=== PATIENT | female | born 1935 | race Caucasian/White ===

== ENCOUNTER 2016-06-28 10:38 | Emergency (ER) | payer MEDICARE, BC ==
[2016-06-28 10:43] VITALS: RESP 18
[2016-06-28] MEDS ORDERED: MECLIZINE 25 MG TAB PO STA (11:07)
[2016-06-28] MEDS ORDERED: DIAZEPAM 5 MG/ML 2 ML SYRINGE IVP STA (11:07)
[2016-06-28] MEDS ORDERED: hydrALAZINE HCL 20 MG/ML 1 ML VIAL IVP STA (11:08)
--- NOTE | 2016-06-28 11:11 | ED ---
General Adult HPI - General Chief complaint: Dizziness Stated complaint: HTN Time Seen by Provider: 06/28/16 10:45 Source: patient, family, RN notes reviewed Mode of arrival: wheelchair Limitations: no limitations - History of Present Illness Initial comments: This is an 81-year-old female presents emergency Department with a past medical history significant for hypertension. Patient comes in today stating that she is dizzy and she feels like she is given a fall over anytime she stands up to go to walk. Patient states this all started this morning. Patient states she has not had a history of similar. Patient denies headache patient denies any numbness weakness. Patient denies any chest pain palpitations difficulty breathing shortest breath. Patient denies any tinnitus. Patient denies any decrease in hearing recently. Patient denies any recent fever chills. Patient denies any recent cough. Patient denies abdominal pain patient denies any nausea vomiting or diarrhea. Patient states movement does seem to make it worse and sitting still in bed she does feel better. - Related Data Home Medications Medication Instructions Recorded Confirmed Calcium Carbonate [Calcium] 600 mg PO DAILY 06/28/16 06/28/16 Garlic 1 tab PO DAILY 06/28/16 06/28/16 Lisinopril/Hydrochlorothiazide 1 tab PO BID-W/MEALS 06/28/16 06/28/16 [Lisinopril-Hctz 20-12.5 mg Tab] Multivitamins, Thera [Multivitamin 1 tab PO DAILY 06/28/16 06/28/16 (formulary)] Red Yeast Rice 1,200 mg PO DAILY 06/28/16 06/28/16 hydrALAZINE HCL [Apresoline] 25 mg PO BID-W/MEALS 06/28/16 06/28/16 Previous Rx's Medication Instructions Recorded Meclizine [Antivert] 25 mg PO TID #20 tab 06/28/16 Allergies Allergy/AdvReac Type Severity Reaction Status Date / Time No Known Allergies Allergy Verified 06/28/16 11:26 Review of Systems ROS Statement: Those systems with pertinent positive or pertinent negative responses have been documented in the HPI. ROS Other: All systems not noted in ROS Statement are negative. Past Medical History Past Medical History: Hypertension History of Any Multi-Drug Resistant Organisms: None Reported Past Surgical History: Cholecystectomy, Hysterectomy Additional Past Surgical History / Comment(s): LEFT KNEE, Past Psychological History: Depression Smoking Status: Never smoker Past Alcohol Use History: None Reported Past Drug Use History: None Reported General Exam - General Exam Comments Initial Comments: GENERAL: Patient is well-developed and well-nourished. Patient is nontoxic and well- hydrated and is in mild distress. ENT: Neck is soft and supple. No significant lymphadenopathy is noted. Oropharynx is clear. Moist mucous membranes. Neck has full range of motion without eliciting any pain. T EYES: The sclera were anicteric and conjunctiva were pink and moist. Extraocular movements were intact and pupils were equal round and reactive to light. Eyelids were unremarkable. PULMONARY: Unlabored respirations. Good breath sounds bilaterally. No audible rales rhonchi or wheezing was noted. CARDIOVASCULAR: There is a regular rate and rhythm without any murmurs gallops or rubs. ABDOMEN: Soft and nontender with normal bowel sounds. No palpable organomegaly was noted. There is no palpable pulsatile mass. SKIN: Skin is clear with no lesions or rashes and otherwise unremarkable. NEUROLOGIC: Patient is alert and oriented x3. Cranial nerves II through XII are grossly intact. Motor and sensory are also intact. Normal speech, volume and content. Symmetrical smile. Cerebellar exam grossly intact. MUSCULOSKELETAL: Normal extremities with adequate strength and full range of motion. No lower extremity swelling or edema. No calf tenderness. LYMPHATICS: No significant lymphadenopathy is noted PSYCHIATRIC: Normal psychiatric evaluation. Normal interpersonal interactions appears functionally intact in deals appropriately with others. No signs of depression. No signs of anxiety. Limitations: no limitations Course Vital Signs 06/28/16 06/28/16 10:40 12:04 Temperature 97.2 F L Pulse Rate 74 77 Respiratory 18 18 Rate Blood Pressure 189/79 134/60 O2 Sat by Pulse 97 99 Oximetry Medical Decision Making - Medical Decision Making EKG shows normal sinus rhythm at 72 bpm MI interval is on an 82 QRS 130 for QT intervals 410 QTC is 448. Patient's EKG shows no significant ST segment elevation or depression. Patient has a right bundle branch block. Patient's CAT scan of the brain shows no acute normalities. Chest x-ray shows no acute normalities. I had the patient ambulate around the emergency department she felt much better but not quite back to her baseline. Patient's blood pressure was considerably better after hydralazine was given. - Lab Data Result diagrams: 06/28/16 11:00 06/28/16 11:00 Lab Results 06/28/16 06/28/16 06/28/16 Range/Units 11:00 11:00 11:00 WBC 7.4 (3.8-10.6) k/uL RBC 4.41 (3.80-5.40) m/uL Hgb 13.8 (11.4-16.0) gm/dL Hct 40.1 (34.0-46.0) % MCV 90.8 (80.0-100.0) fL MCH 31.2 (25.0-35.0) pg MCHC 34.4 (31.0-37.0) g/dL RDW 13.0 (11.5-15.5) % Plt Count 262 (150-450) k/uL Neutrophils % 59 % Lymphocytes % 29 % Monocytes % 6 % Eosinophils % 2 % Basophils % 1 % Neutrophils # 4.4 (1.3-7.7) k/uL Lymphocytes # 2.1 (1.0-4.8) k/uL Monocytes # 0.5 (0-1.0) k/uL Eosinophils # 0.2 (0-0.7) k/uL Basophils # 0.0 (0-0.2) k/uL PT (9.0-12.0) sec INR (<1.1) APTT (22.0-30.0) sec Sodium 139 (137-145) mmol/L Potassium 5.0 (3.5-5.1) mmol/L Chloride 100 (98-107) mmol/L Carbon Dioxide 27 (22-30) mmol/L Anion Gap 12 mmol/L BUN 24 H (7-17) mg/dL Creatinine 0.89 (0.52-1.04) mg/dL Est GFR (MDRD) Af Amer >60 (>60 ml/min/1.73 sqM) Est GFR (MDRD) Non-Af >60 (>60 ml/min/1.73 sqM) Glucose 110 H (74-99) mg/dL Calcium 9.8 (8.4-10.2) mg/dL Magnesium 1.6 (1.6-2.3) mg/dL Total Bilirubin 0.9 (0.2-1.3) mg/dL AST 39 H (14-36) U/L ALT 25 (9-52) U/L Alkaline Phosphatase 58 (38-126) U/L Total Creatine Kinase 52 (30-135) U/L CK-MB (CK-2) 2.2 (0.0-2.4) ng/mL CK-MB (CK-2) Rel Index 4.2 Troponin I <0.012 (0.000-0.034) ng/mL Total Protein 7.9 (6.3-8.2) g/dL Albumin 4.4 (3.5-5.0) g/dL 06/28/16 Range/Units 11:00 WBC (3.8-10.6) k/uL RBC (3.80-5.40) m/uL Hgb (11.4-16.0) gm/dL Hct (34.0-46.0) % MCV (80.0-100.0) fL MCH (25.0-35.0) pg MCHC (31.0-37.0) g/dL RDW (11.5-15.5) % Plt Count (150-450) k/uL Neutrophils % % Lymphocytes % % Monocytes % % Eosinophils % % Basophils % % Neutrophils # (1.3-7.7) k/uL Lymphocytes # (1.0-4.8) k/uL Monocytes # (0-1.0) k/uL Eosinophils # (0-0.7) k/uL Basophils # (0-0.2) k/uL PT 10.2 (9.0-12.0) sec INR 1.0 (<1.1) APTT 22.5 (22.0-30.0) sec Sodium (137-145) mmol/L Potassium (3.5-5.1) mmol/L Chloride (98-107) mmol/L Carbon Dioxide (22-30) mmol/L Anion Gap mmol/L BUN (7-17) mg/dL Creatinine (0.52-1.04) mg/dL Est GFR (MDRD) Af Amer (>60 ml/min/1.73 sqM) Est GFR (MDRD) Non-Af (>60 ml/min/1.73 sqM) Glucose (74-99) mg/dL Calcium (8.4-10.2) mg/dL Magnesium (1.6-2.3) mg/dL Total Bilirubin (0.2-1.3) mg/dL AST (14-36) U/L ALT (9-52) U/L Alkaline Phosphatase (38-126) U/L Total Creatine Kinase (30-135) U/L CK-MB (CK-2) (0.0-2.4) ng/mL CK-MB (CK-2) Rel Index Troponin I (0.000-0.034) ng/mL Total Protein (6.3-8.2) g/dL Albumin (3.5-5.0) g/dL Disposition Clinical Impression: Vertigo, Hypertension Disposition: HOME SELF-CARE Condition: Good Instructions: Vertigo (ED) Prescriptions: Meclizine [Antivert] 25 mg PO TID #20 tab Referrals: Andrew Castillo MD [Primary Care Provider] - 1-2 days Time of Disposition: 12:30
[2016-06-28 11:19] LABS: Basophils % (A) 1 %; CH 30.9; CHCM 34.2; Eosinophils # (A) 0.2 k/uL (0-0.7); Eosinophils % (A) 2 %; HCT 40.1 % (34.0-46.0); HGB 13.8 gm/dL (11.4-16.0); Luc # (Auto) 0.22; Luc % (Auto) 3; Lymphocytes # (A) 2.1 k/uL (1.0-4.8); Lymphocytes % (A) 29 %; MCH 31.2 pg (25.0-35.0); MCHC 34.4 g/dL (31.0-37.0); MCV 90.8 fL (80.0-100.0); Mean Platelet Volume 6.5; Monocytes # (A) 0.5 k/uL (0-1.0); Monocytes % (A) 6 %; Neutrophils # (A) 4.4 k/uL (1.3-7.7); Neutrophils % (A) 59 %; RBC 4.41 m/uL (3.80-5.40); WBC 7.4 k/uL (3.8-10.6); WBC (Perox) 7.25
[2016-06-28 11:33] LABS: Partial Thromboplastin Time 22.5 sec (22.0-30.0); Prothrombin Time 10.2 sec (9.0-12.0)
[2016-06-28 11:41] LABS: Creatine Kinase 52 U/L (30-135)
[2016-06-28 11:44] LABS: ALT 25 U/L (9-52); AST 39 U/L (14-36); Alkaline Phosphatase 58 U/L (38-126); Anion Gap 12 mmol/L; Blood Urea Nitrogen 24 mg/dL (7-17); Calcium 9.8 mg/dL (8.4-10.2); Carbon Dioxide 27 mmol/L (22-30); Chloride 100 mmol/L (98-107); Glucose 110 mg/dL (74-99); Magnesium 1.6 mg/dL (1.6-2.3); Non-African American GFR(MDRD) >60 (>60 ml/min/1.73 sqM); Sodium 139 mmol/L (137-145); Total Bilirubin 0.9 mg/dL (0.2-1.3); Total Protein 7.9 g/dL (6.3-8.2)
[2016-06-28 11:54] LABS: Creatine Kinase MB 2.2 ng/mL (0.0-2.4); Troponin I <0.012 ng/mL (0.000-0.034)
--- NOTE | 2016-06-28 11:54 | CT ---
EXAMINATION TYPE: CT brain wo con DATE OF EXAM: 06/28/2016 11:48 AM COMPARISON: 03/17/2015 HISTORY: dizziness, htn CT DLP: 995.5 mGycm. Automated Exposure Control for Dose Reduction was Utilized. TECHNIQUE: CT scan of the head is performed without contrast. FINDINGS: There is no acute intracranial hemorrhage, mass effect, or midline shift identified. Scat tered patchy areas of hypoattenuation are seen throughout the periventricular and subcortical white m atter. Atherosclerosis is noted of the intracranial vasculature. Symmetric sulcal prominence and vent ricular prominence on the basis of age-related atrophy. The ventricles and sulci are within normal li mits in size. The right ocular lenses surgically absent. Scleral calcification is also noted on the right. Previously seen right frontoparietal scalp hematoma has resolved in the interim. Paranasal sin uses are well aerated as are the mastoid air cells. IMPRESSION: 1. No acute intracranial hemorrhage, mass effect, or midline shift is seen. 2. Unchanged white matter disease, likely on the basis of chronic microangiopathy. 3. Age-related cerebral atrophy. 4. Resolution of the previously seen right frontoparietal scalp hematoma.
--- NOTE | 2016-06-28 12:03 | XR ---
EXAMINATION TYPE: XR chest 2V DATE OF EXAM: 06/28/2016 11:54 AM HISTORY: Chest Pain. REFERENCE: NONE. FINDINGS: There is apparent elevation of the right hemidiaphragm. The lungs appear clear. Pleural [facility] [place] are clear. Heart size is obscured. IMPRESSION: NO ACUTE INTRATHORACIC ABNORMALITY.
[2016-06-28 12:41] VITALS: BP 135/63; PULSE 71; TEMP 96.8
== END 2016-06-28 12:46 | disposition home or self-care (01) ==
LOC: EC 10:38
DX: R42 Dizziness and giddiness (principal); I10 Essential (primary) hypertension; I45.10 Unspecified right bundle-branch block; Z79.899 Other long term (current) drug therapy
CPT/HCPCS: 99284; 96374; 96375; 36415; 93005; 80053; 82550; 82553; 83735; 84484; 85025; 85610; 85730; 71020; 70450; J0360; J3360

== ENCOUNTER → 2016-12-10 | Outpatient (CLI) | payer MEDICARE, BC ==
--- NOTE | 2016-12-12 06:47 | MM ---
Reason for exam: screening (asymptomatic). Last mammogram was performed 1 year and 1 month ago. History: Patient is postmenopausal. Physical Findings: A clinical breast exam by your physician is recommended on an annual basis and results should be correlated with mammographic findings. MG 3D Screening Mammo W/Cad Bilateral CC and MLO view(s) were taken. Prior study comparison: November 07, 2015, bilateral MG 3d screening mammo w/cad. November 04, 2014, bilateral MG screening mammo w CAD. October 12, 2013, mammogram, performed at [place]. There are scattered fibroglandular densities. Finding: There are typically benign vascular, round, diffuse calcifications in both breasts. No significant changes in finding since November 07, 2015, November 04, 2014, and October 12, 2013. ASSESSMENT: Benign, BI-RAD 2 RECOMMENDATION: Routine screening mammogram of both breasts in 1 year.
== END | disposition home or self-care (01) ==
LOC: RADMAMWWP 08:14
PROVIDERS: ATTEND Internal Medicine Geriatric Medicine
DX: Z12.31 Encounter for screening mammogram for malignant neoplasm of breast (principal)
CPT/HCPCS: 77063; G0202

== ENCOUNTER 2017-05-25 21:13 | Emergency (ER) | payer MEDICARE, BC ==
[2017-05-25] MEDS ORDERED: ACETAMINOPHEN TAB 500 MG TAB PO STA (23:02)
--- NOTE | 2017-05-25 23:02 | ED ---
Extremity Problem HPI - General Chief complaint: Extremity Problem,Nontraumatic Stated complaint: LEG PAIN Time Seen by Provider: 05/25/17 21:43 Source: patient, RN notes reviewed Mode of arrival: wheelchair Limitations: no limitations - History of Present Illness Initial comments: This is an 82-year-old female presents to the emergency department with chief complaint of right leg pain. Patient states that yesterday she developed pain going from her right hip to her right ankle. She describes the pain as a sharp and stabbing. She states that the pain runs down the side of her leg. She denies any back pain. Denies any falls, injuries or trauma. She denies chest pain or shortness breath, fevers or chills, abdominal pain, nausea or vomiting, diarrhea or constipation, dysuria or hematuria, saddle paresthesias or loss of bladder or bowel function. Patient states that she was recently in [place] and drove back this past Friday morning. Patient denies any history of blood clots , recent hospitalizations or surgeries or history of coagulopathies. - Related Data Home Medications Medication Instructions Recorded Confirmed Calcium Carbonate [Calcium] 600 mg PO DAILY 06/28/16 05/25/17 Garlic 1 tab PO DAILY 06/28/16 05/25/17 Lisinopril/Hydrochlorothiazide 1 tab PO BID-W/MEALS 06/28/16 05/25/17 [Lisinopril-Hctz 20-12.5 mg Tab] Multivitamins, Thera [Multivitamin 1 tab PO DAILY 06/28/16 05/25/17 (formulary)] Red Yeast Rice 1,200 mg PO DAILY 06/28/16 05/25/17 hydrALAZINE HCL [Apresoline] 25 mg PO BID-W/MEALS 06/28/16 05/25/17 Aspirin [Adult Low Dose Aspirin EC] 81 mg PO DAILY 05/25/17 05/25/17 [place]-3 Fatty Acids/Fish Oil [Fish 1 cap PO DAILY 05/25/17 05/25/17 Oil 1,000 mg Softgel] Allergies Allergy/AdvReac Type Severity Reaction Status Date / Time No Known Allergies Allergy Verified 05/25/17 21:35 Review of Systems ROS Statement: Those systems with pertinent positive or pertinent negative responses have been documented in the HPI. ROS Other: All systems not noted in ROS Statement are negative. Past Medical History Past Medical History: Hypertension History of Any Multi-Drug Resistant Organisms: None Reported Past Surgical History: Cholecystectomy, Hysterectomy Additional Past Surgical History / Comment(s): LEFT KNEE, Past Psychological History: Depression Smoking Status: Never smoker Past Alcohol Use History: None Reported Past Drug Use History: None Reported General Exam - General Exam Comments Initial Comments: General: Awake and alert, well-developed; in no apparent distress. Pleasant and calm elderly woman lying comfortably on ED stretcher. HEENT: Head atraumatic, normocephalic. Pupils are equal, round and reactive to light. Extraocular movements intact. Oropharynx moist without erythema or exudate. Neck: Supple. Normal ROM. Cardiovascular: Regular rate and rhythm. No murmurs, rubs or gallops. Chest symmetrical. Respiratory: Lungs clear to auscultation bilaterally. No wheezes, rales or rhonchi. Normal respiratory effort with no use of accessory muscles. Abdomen: Soft, non-tender, non-distended. No rigidity, rebound or guarding. Normal bowel sounds in all 4 quadrants. Musculoskeletal: Normal range of motion of bilateral upper and lower extremities. There is tenderness on palpation of right lateral thigh as well as calf. No swelling, erythema, contusions or gross deformities noted. Skin: [place], warm and dry without rashes or lesions. Neurological: Alert and oriented x3. CN II-XII grossly intact. Speech is fluent and answers are appropriate. No focal neuro deficits. Psychiatric: Normal mood and affect. No overt signs of depression or anxiety noted. Limitations: no limitations Course Vital Signs 05/25/17 05/25/17 21:25 22:57 Temperature 97.2 F L Pulse Rate 58 L Respiratory 18 18 Rate Blood Pressure 213/113 O2 Sat by Pulse 94 L Oximetry Medical Decision Making - Medical Decision Making This is an 82-year-old female who presents to the emergency department with chief complaint of right leg pain. Patient denies any specific injuries, falls or trauma. She does state that she had a long car ride from [place] this past Friday. The leg pain came on yesterday. Patient denies any current back pain but does state that she has a history of chronic back pain and sciatica. Ultrasound venous Doppler was obtained and revealed no evidence for an acute DVT. Patient was given Tylenol while in the emergency department and she stated that her pain did decrease. On discharge, patient does have an elevated blood pressure. She does admit to having hypertension and states that she does take medications for this. She is asymptomatic. Denies chest pain or shortness of breath, dizziness or headache. Recommended taking her at home medication as well as following up with her primary care provider. Patient does state that she has an appointment scheduled for next Friday. Patient is in no acute distress and will be discharged home. She is in agreement and voices understanding. All questions were answered. - Radiology Data Radiology results: report reviewed Ultrasound venous Doppler right lower extremity impression: Normal exam. No evidence of deep venous thrombosis in the right leg. Disposition Clinical Impression: Right leg pain Disposition: HOME SELF-CARE Condition: Good Instructions: Leg Pain (ED) Additional Instructions: Please follow-up with your primary care provider regarding the leg pain and your elevated blood pressure. Please follow up with primary care provider within 1-2 days. Return to emergency department if symptoms should worsen or any concerns arise. Referrals: Andrew Castillo MD [Primary Care Provider] - 1-2 days Time of Disposition: 23:48
--- NOTE | 2017-05-25 23:29 | US ---
EXAMINATION TYPE: US venous doppler duplex LE RT DATE OF EXAM: 05/25/2017 11:20 PM COMPARISON: NONE CLINICAL HISTORY: Pain. SIDE PERFORMED: Right TECHNIQUE: The lower extremity deep venous system is examined utilizing real time linear array sonog joselito with graded compression, doppler sonography and color-flow sonography. VESSELS IMAGED: External Iliac Vein (EIV) Common Femoral Vein Deep Femoral Vein Greater Saphenous Vein * Femoral Vein Popliteal Vein Small Saphenous Vein * Proximal Calf Veins (* superficial vessels) Right Leg: Negative for DVT IMPRESSION: Normal exam. No evidence of deep venous thrombosis in the right leg.
[2017-05-25 23:46] VITALS: TEMP 97.8
[2017-05-26 00:14] VITALS: BP 178/78; PULSE 80; RESP 18
== END 2017-05-26 00:10 | disposition home or self-care (01) ==
LOC: EC 21:13
DX: M79.651 Pain in right thigh (principal); M79.661 Pain in right lower leg; I10 Essential (primary) hypertension; Z79.82 Long term (current) use of aspirin; Z79.899 Other long term (current) drug therapy
CPT/HCPCS: 99283

== ENCOUNTER → 2017-12-11 | Outpatient (CLI) | payer MEDICARE, BC ==
--- NOTE | 2017-12-11 18:44 | BD ---
EXAMINATION TYPE: Axial Bone Density DATE OF EXAM: 12/11/2017 COMPARISON: 11.07.2015 CLINICAL HISTORY: 82 YR OLD FEMALE....ICD-10 CODE: M81.0 OSTEOPOROSIS Height: 59.8 Weight: 158 FRAX RISK QUESTIONS: NOTHING TO NOTE HERE RISK FACTORS HISTORY OF: Active: ELDERLY, UNSTEADY Diet low in dairy products/other sources of calcium: NO Postmenopausal woman: YES, 50ISH Lost more than 2 inches in height since high school: YES Frequent falls: UNSTEADY Poor Health: ELDERLY, FRAIL MEDICATIONS: Additional Medications: MULTIVITAMIN, CALCIUM, BP MEDS, HEARTBURN MEDS, Additional History: HYPERTENSION EXAM MEASUREMENTS: Bone mineral densitometry was performed using the [employer] System. Bone mineral density as measured about the Lumbar spine is: ----- L1-L4(G/cm2): 1.546 T Score Values are as follows: ----- L1: 3.5 ----- L2: 1.9 ----- L3: 3.8 ----- L4: 3.0 ----- L1-L4: 3.0 Bone mineral density has: Increased 9.2% since study of: 11.07.2015 Bone mineral density about the R hip (g/cm2): 1.192 Bone mineral density about the L hip (g/cm2): 1.187 T Score values are as follows: -----R Neck: 1.5 -----L Neck: 1.3 -----R Total: 1.5 -----L Total: 1.4 Bone mineral density has: Increased 1.5% since study of: 11.07.2015 FRAX%s: THERE IS A 8.9% CHANCE FOR A MAJOR OSTEOPOROTIC FX AND A 0.6% FOR HIP FX.....PROBABILITY O F FX IN 10 YRS TIME IMPRESSION: Normal (Values between +1 and -1 indicate normal bone mass). Consider repeating this study in 5 year s or sooner if there is some new clinical indication. NOTE: T-SCORE=SD OF THE YOUNG ADULT MEAN.
--- NOTE | 2017-12-12 08:58 | MM ---
Reason for exam: screening (asymptomatic). Last mammogram was performed 1 year ago. History: Patient is postmenopausal. Physical Findings: A clinical breast exam by your physician is recommended on an annual basis and results should be correlated with mammographic findings. MG 3D Screening Mammo W/Cad Bilateral CC and MLO view(s) were taken. Prior study comparison: December 10, 2016, bilateral MG 3d screening mammo w/cad. November 07, 2015, bilateral MG 3d screening mammo w/cad. There are scattered fibroglandular densities. Benign appearing bilateral calcifications. ASSESSMENT: Benign, BI-RAD 2 RECOMMENDATION: Routine screening mammogram of both breasts in 1 year.
== END | disposition home or self-care (01) ==
LOC: RADMAMWWP 09:23
PROVIDERS: ATTEND Internal Medicine Geriatric Medicine
DX: Z12.31 Encounter for screening mammogram for malignant neoplasm of breast (principal); M81.0 Age-related osteoporosis without current pathological fracture
CPT/HCPCS: 77063; 77067; 77080

== ENCOUNTER 2018-06-28 08:34 | Inpatient (IN) | payer MEDICARE, BC ==
[2018-06-28] MEDS ORDERED: SODIUM CHLORIDE 0.9% 1,000 ML IV STA (09:15)
[2018-06-28] MEDS ORDERED: ONDANSETRON 4 MG/2 ML VIAL IVP STA (09:15)
--- NOTE | 2018-06-28 09:21 | ED ---
General Adult HPI - General Chief complaint: Nausea/Vomiting/Diarrhea Stated complaint: vomiting, nausea Time Seen by Provider: 06/28/18 08:45 Source: patient, RN notes reviewed Mode of arrival: wheelchair Limitations: no limitations - History of Present Illness Initial comments: This is an 83-year-old female who presents emergency Department complaining that for a month she's had diarrhea. Patient states she seen a surgeon is supposed to follow-up with another surgeon on the this month. Patient states she was told she had a rectocele and has needed to have that. Patient states for a month she's had diarrhea and over the last 2 or 3 days she's had nausea and vomiting every day. Patient states she has intermittent abdominal cramping but currently she is abdominal pain-free. Patient denies any chest pain difficult breathing shortness of breath. Patient denies any fever chills. Patient denies any blood in the stool or dark black stools. Patient states over the last month she's lost about 10 pounds. - Related Data Home Medications Medication Instructions Recorded Confirmed Calcium Carbonate [Calcium] 600 mg PO DAILY 06/28/16 06/28/18 Multivitamins, Thera [Multivitamin 1 tab PO DAILY 06/28/16 06/28/18 (formulary)] Red Yeast Rice 600 mg PO DAILY 06/28/16 06/28/18 Aspirin [Adult Low Dose Aspirin EC] 81 mg PO DAILY 05/25/17 06/28/18 Cholecalciferol [Vitamin D3 (25 1,000 unit PO DAILY 06/28/18 06/28/18 Mcg = 1000 Iu)] Famotidine [Pepcid AC] 10 mg PO DAILY 06/28/18 06/28/18 Furosemide [Lasix] 20 mg PO DAILY 06/28/18 06/28/18 Lisinopril-Hctz 20-25 mg 1 tab PO DAILY 06/28/18 06/28/18 [Zestoretic 20-25] Ondansetron HCl [Zofran] 4 mg PO BID PRN 06/28/18 06/28/18 Potassium Chloride [Klor-Con 10] 10 meq PO DAILY 06/28/18 06/28/18 hydrALAZINE HCL [Apresoline] 50 mg PO BID 06/28/18 06/28/18 Allergies Allergy/AdvReac Type Severity Reaction Status Date / Time No Known Allergies Allergy Verified 06/28/18 09:15 Review of Systems ROS Statement: Those systems with pertinent positive or pertinent negative responses have been documented in the HPI. ROS Other: All systems not noted in ROS Statement are negative. Past Medical History Past Medical History: Hypertension History of Any Multi-Drug Resistant Organisms: None Reported Past Surgical History: Cholecystectomy, Hysterectomy Additional Past Surgical History / Comment(s): LEFT KNEE, Past Psychological History: Depression Smoking Status: Never smoker Past Alcohol Use History: None Reported Past Drug Use History: None Reported General Exam - General Exam Comments Initial Comments: GENERAL: Patient is well-developed and well-nourished. Patient is nontoxic and well- hydrated and is in mild distress. ENT: Neck is soft and supple. No significant lymphadenopathy is noted. Oropharynx is clear. Moist mucous membranes. Neck has full range of motion without eliciting any pain. EYES: The sclera were anicteric and conjunctiva were pink and moist. Extraocular movements were intact and pupils were equal round and reactive to light. Eyelids were unremarkable. PULMONARY: Unlabored respirations. Good breath sounds bilaterally. No audible rales rhonchi or wheezing was noted. CARDIOVASCULAR: There is a regular rate and rhythm without any murmurs gallops or rubs. ABDOMEN: Soft and nontender with normal bowel sounds. No palpable organomegaly was noted. There is no palpable pulsatile mass. SKIN: Skin is clear with no lesions or rashes and otherwise unremarkable. NEUROLOGIC: Patient is alert and oriented x3. Cranial nerves II through XII are grossly intact. Motor and sensory are also intact. Normal speech, volume and content. Symmetrical smile. MUSCULOSKELETAL: Normal extremities with adequate strength and full range of motion. LYMPHATICS: No significant lymphadenopathy is noted PSYCHIATRIC: Normal psychiatric evaluation. Limitations: no limitations Course Vital Signs 06/28/18 08:41 Temperature 97.5 F L Pulse Rate 85 Respiratory 18 Rate Blood Pressure 90/55 O2 Sat by Pulse 98 Oximetry Medical Decision Making - Medical Decision Making Patient's KUB shows possible ileus. I spoke with to her were going to admit the patient for 23 observation for dehydration. - Lab Data Result diagrams: 06/28/18 09:26 06/28/18 09:26 Lab Results 06/28/18 06/28/18 06/28/18 Range/Units 09:26 09:26 09:26 WBC 11.1 H (3.8-10.6) k/uL RBC 4.45 (3.80-5.40) m/uL Hgb 13.6 (11.4-16.0) gm/dL Hct 40.0 (34.0-46.0) % MCV 89.9 (80.0-100.0) fL MCH 30.5 (25.0-35.0) pg MCHC 33.9 (31.0-37.0) g/dL RDW 12.5 (11.5-15.5) % Plt Count 289 (150-450) k/uL Neutrophils % 83 % Lymphocytes % 11 % Monocytes % 4 % Eosinophils % 0 % Basophils % 0 % Neutrophils # 9.3 H (1.3-7.7) k/uL Lymphocytes # 1.2 (1.0-4.8) k/uL Monocytes # 0.5 (0-1.0) k/uL Eosinophils # 0.0 (0-0.7) k/uL Basophils # 0.0 (0-0.2) k/uL Sodium 130 L (137-145) mmol/L Potassium 3.4 L (3.5-5.1) mmol/L Chloride 92 L (98-107) mmol/L Carbon Dioxide 26 (22-30) mmol/L Anion Gap 12 mmol/L BUN 68 H (7-17) mg/dL Creatinine 1.84 H (0.52-1.04) mg/dL Est GFR (CKD-EPI)AfAm 29 (>60 ml/min/1.73 sqM) Est GFR (CKD-EPI)NonAf 25 (>60 ml/min/1.73 sqM) Glucose 136 H (74-99) mg/dL Plasma Lactic Acid Conor 1.1 (0.7-2.0) mmol/L Calcium 8.7 (8.4-10.2) mg/dL Total Bilirubin 0.7 (0.2-1.3) mg/dL AST 31 (14-36) U/L ALT 23 (9-52) U/L Alkaline Phosphatase 68 (38-126) U/L Total Protein 6.1 L (6.3-8.2) g/dL Albumin 3.6 (3.5-5.0) g/dL Amylase <30 L (30-110) U/L Lipase 35 (23-300) U/L Urine Color Urine Appearance (Clear) Urine pH (5.0-8.0) Ur Specific [place] (1.001-1.035) Urine Protein (Negative) Urine Glucose (UA) (Negative) Urine Ketones (Negative) Urine Blood (Negative) Urine Nitrite (Negative) Urine Bilirubin (Negative) Urine Urobilinogen (<2.0) mg/dL Ur Leukocyte Esterase (Negative) Urine RBC (0-5) /hpf Urine WBC (0-5) /hpf Ur Squamous Epith Cells (0-4) /hpf Urine Bacteria (None) /hpf Hyaline Casts (0-2) /lpf Urine Mucus (None) /hpf 06/28/18 Range/Units 09:26 WBC (3.8-10.6) k/uL RBC (3.80-5.40) m/uL Hgb (11.4-16.0) gm/dL Hct (34.0-46.0) % MCV (80.0-100.0) fL MCH (25.0-35.0) pg MCHC (31.0-37.0) g/dL RDW (11.5-15.5) % Plt Count (150-450) k/uL Neutrophils % % Lymphocytes % % Monocytes % % Eosinophils % % Basophils % % Neutrophils # (1.3-7.7) k/uL Lymphocytes # (1.0-4.8) k/uL Monocytes # (0-1.0) k/uL Eosinophils # (0-0.7) k/uL Basophils # (0-0.2) k/uL Sodium (137-145) mmol/L Potassium (3.5-5.1) mmol/L Chloride (98-107) mmol/L Carbon Dioxide (22-30) mmol/L Anion Gap mmol/L BUN (7-17) mg/dL Creatinine (0.52-1.04) mg/dL Est GFR (CKD-EPI)AfAm (>60 ml/min/1.73 sqM) Est GFR (CKD-EPI)NonAf (>60 ml/min/1.73 sqM) Glucose (74-99) mg/dL Plasma Lactic Acid Conor (0.7-2.0) mmol/L Calcium (8.4-10.2) mg/dL Total Bilirubin (0.2-1.3) mg/dL AST (14-36) U/L ALT (9-52) U/L Alkaline Phosphatase (38-126) U/L Total Protein (6.3-8.2) g/dL Albumin (3.5-5.0) g/dL Amylase (30-110) U/L Lipase (23-300) U/L Urine Color Yellow Urine Appearance Cloudy H (Clear) Urine pH 5.5 (5.0-8.0) Ur Specific [place] 1.016 (1.001-1.035) Urine Protein Trace H (Negative) Urine Glucose (UA) Negative (Negative) Urine Ketones Trace H (Negative) Urine Blood Negative (Negative) Urine Nitrite Negative (Negative) Urine Bilirubin Negative (Negative) Urine Urobilinogen <2.0 (<2.0) mg/dL Ur Leukocyte Esterase Moderate H (Negative) Urine RBC 1 (0-5) /hpf Urine WBC 3 (0-5) /hpf Ur Squamous Epith Cells 5 H (0-4) /hpf Urine Bacteria Rare H (None) /hpf Hyaline Casts 13 H (0-2) /lpf Urine Mucus Rare H (None) /hpf Disposition Clinical Impression: Hyponatremia, Acute renal failure, Diarrhea, Vomiting, Dehydration Disposition: ADMITTED IP TO THIS [facility] Referrals: Andrew Castillo MD [Primary Care Provider] - 1-2 days Time of Disposition: 10:20
[2018-06-28 09:47] LABS: Basophils % (A) 0 %; Eosinophils % (A) 0 %; HGB 13.6 gm/dL (11.4-16.0); Lymphocytes # (A) 1.2 k/uL (1.0-4.8); Lymphocytes % (A) 11 %; MCH 30.5 pg (25.0-35.0); MCHC 33.9 g/dL (31.0-37.0); MCV 89.9 fL (80.0-100.0); Mean Platelet Volume 7.2; Monocytes # (A) 0.5 k/uL (0-1.0); Monocytes % (A) 4 %; Neutrophils # (A) 9.3 k/uL (1.3-7.7); Neutrophils % (A) 83 %; Platelet Count 289 k/uL (150-450); RBC 4.45 m/uL (3.80-5.40); RDW 12.5 % (11.5-15.5); WBC 11.1 k/uL (3.8-10.6)
[2018-06-28 09:56] LABS: ALT 23 U/L (9-52); AST 31 U/L (14-36); Albumin 3.6 g/dL (3.5-5.0); Alkaline Phosphatase 68 U/L (38-126); Amylase <30 U/L (30-110); Anion Gap 12 mmol/L; Blood Urea Nitrogen 68 mg/dL (7-17); Calcium 8.7 mg/dL (8.4-10.2); Carbon Dioxide 26 mmol/L (22-30); Chloride 92 mmol/L (98-107); Glucose 136 mg/dL (74-99); Lipase 35 U/L (23-300); Potassium 3.4 mmol/L (3.5-5.1); Sodium 130 mmol/L (137-145); Total Bilirubin 0.7 mg/dL (0.2-1.3); Total Protein 6.1 g/dL (6.3-8.2)
--- NOTE | 2018-06-28 09:56 | XR ---
EXAMINATION TYPE: XR KUB , 2 VIEWS DATE OF EXAM ORDERED: 06/28/2018 HISTORY: abdominal pain. COMPARISON: None. FINDINGS: There is marked elevation right hemidiaphragm. There is colonic interposition on the right . There is gaseous distention of the colon with several large air-fluid levels. There are small air-f luid levels present more inferiorly. There is air extending beyond symphysis pubis. IMPRESSION: 1. FINDINGS MOST CONSISTENT WITH GENERALIZED ILEUS. 2. I COULD NOT EXCLUDE A LEFT INGUINAL HERNIA.
[2018-06-28 09:58] LABS: Appearance,Urine Cloudy (Clear); Bacteria,Urine Rare /hpf; Bilirubin,Urine Negative (Negative); Blood,Urine Negative (Negative); Color,Urine Yellow; Glucose,Urine (UA) Negative (Negative); Hyaline Casts,Urine 13 /lpf (0-2); Ketones,Urine Trace (Negative); Leukocyte Esterase,Urine Moderate (Negative); Mucus,Urine Rare /hpf; Nitrite,Urine Negative (Negative); PH, Urine 5.5 (5.0-8.0); Protein,Urine Trace (Negative); RBC,Urine 1 /hpf (0-5); Specific Gravity,Urine 1.016 (1.001-1.035); Squamous Epithelial Cell,Urine 5 /hpf (0-4); Urobilinogen,Urine <2.0 mg/dL (<2.0); WBC,Urine 3 /hpf (0-5)
[2018-06-28] MEDS ORDERED: SODIUM CHLORIDE 0.9% 1,000 ML IV ONE (10:56)
[2018-06-28] MEDS ORDERED: ONDANSETRON 4 MG/2 ML VIAL IVP PRN (11:00)
--- NOTE | 2018-06-28 12:51 | P.HPIM ---
History of Present Illness H&P Date: 06/28/18 Chief Complaint: Diarrhea for one month This is an 83-year-old female patient of Dr. Castillo with past medical history of hypertension, gastroesophageal reflux disease, rectocele. Patient son gives history that she has had ongoing problems with rectocele. They were recently traveling and patient was admitted to [facility] in [place] and was treated that time for colitis with 2 antibiotics but then realized it was not colitis. She has since returned home and has [facility] has been subsequently referred to a surgeon and [facility] and has appointment on July 07 for evaluation of rectocele surgery. Patient has had ongoing problems with incontinence of liquid stool and just runs out of her. She denies any chest pain, shortness of breath, no fever or chills. There's been no blood in her stools or black tarry stools. She has lost about 10 pounds over the past month. Patient came in to [facility] emergency center for evaluation. She was afebrile, blood pressure 90/55, heart rate 85, white count was 11.1, hemoglobin 13.6. Sodium 1:30, potassium 3.4, chloride 92, CO2 26 BUN 16 c reatinine 1.84 and blood sugar 136. Patient was known to have a normal creatinine in the past. Lactic acid was 1.1, liver function tests within normal limits, lipase 35. Urinalysis was cloudy, leukoesterase moderate, squamous cells 5, bacteria rare. Patient was started on IV Zofran and was also provided 1 L of IV fluids continued at 125 mL per hour and admitted to the MedSur floor. Review of Systems All systems: negative Constitutional: Reports anorexia, Reports fatigue, Reports malaise, Reports poor appetite, Reports weakness, Reports weight loss, Denies chills, Denies fever, Denies lethargy Eyes: denies blurred vision, denies pain Ears, nose, mouth and throat: Denies dental pain, Denies dysphagia, Denies headache, Denies nasal congestion, Denies nasal discharge, Denies sore throat, Denies vertigo Cardiovascular: Denies chest pain, Denies decreased exercise tolerance, Denies dyspnea on exertion, Denies edema, Denies leg edema, Denies lightheadedness, Denies orthopnea, Denies palpitations, Denies shortness of breath, Denies syncope Respiratory: Denies cough, Denies cough with sputum, Denies dyspnea, Denies exce ssive sputum, Denies hemoptysis, Denies home oxygen, Denies wheezing Gastrointestinal: Reports diarrhea, Reports loss of appetite, Reports nausea, Reports vomiting, Denies abdominal pain, Denies constipation, Denies hematemesis, Denies hematochezia, Denies jaundice, Denies melena Genitourinary: Denies dysuria, Denies hematuria, Denies urinary frequency Musculoskeletal: Denies frequent falls, Denies gait dysfunction, Denies myalgias Integumentary: Denies pruritus, Denies rash, Denies wounds Neurological: Denies aphasia, Denies change in mentation, Denies change in speec h, Denies gait dysfunction, Denies head injury, Denies headaches, Denies numbness, Denies seizures, Denies weakness Psychiatric: Denies anxiety, Denies depression Endocrine: Denies fatigue, Denies weight change Past Medical History Past Medical History: GERD/Reflux, Hypertension Additional Past Medical History / Comment(s): Rectocele History of Any Multi-Drug Resistant Organisms: None Reported Past Surgical History: Cholecystectomy, Hysterectomy Additional Past Surgical History / Comment(s): LEFT KNEE, Past Psychological History: Depression Smoking Status: Never smoker Past Alcohol Use History: None Reported Additional Past Alcohol Use History / Comment(s): The patient was a remote smoker and quit at age 29. No marijuana or illicit drug use or alcohol use. Patient lives at home with her stepson. They do travel yearly to [place] and back. Past Drug Use History: None Reported - Past Family History Father Additional Family Medical History / Comment(s): Patient's father in his 70s who with history of diabetes and coronary artery disease. Mother Additional Family Medical History / Comment(s): Her mother in her 70s from unknown cause. Brother(s) Additional Family Medical History / Comment(s): Patient has 4 brothers and 3 have and all brothers have had diabetes and coronary artery disease. Sister(s) Additional Family Medical History / Comment(s): Patient has 3 sisters that have all . One from CVA. 2 sisters with coronary artery disease and diabetes. Patient has one son known to have diabetes. Medications and Allergies Home Medications Medication Instructions Recorded Confirmed Type Calcium Carbonate [Calcium] 600 mg PO DAILY 06/28/16 06/28/18 History Multivitamins, Thera [Multivitamin 1 tab PO DAILY 06/28/16 06/28/18 History (formulary)] Red Yeast Rice 600 mg PO DAILY 06/28/16 06/28/18 History Aspirin [Adult Low Dose Aspirin EC] 81 mg PO DAILY 05/25/17 06/28/18 History Cholecalciferol [Vitamin D3 (25 1,000 unit PO DAILY 06/28/18 06/28/18 History Mcg = 1000 Iu)] Famotidine [Pepcid AC] 10 mg PO DAILY 06/28/18 06/28/18 History Furosemide [Lasix] 20 mg PO DAILY 06/28/18 06/28/18 History Lisinopril-Hctz 20-25 mg 1 tab PO DAILY 06/28/18 06/28/18 History [Zestoretic 20-25] Ondansetron HCl [Zofran] 4 mg PO BID PRN 06/28/18 06/28/18 History Potassium Chloride [Klor-Con 10] 10 meq PO DAILY 06/28/18 06/28/18 History hydrALAZINE HCL [Apresoline] 50 mg PO BID 06/28/18 06/28/18 History Allergies Allergy/AdvReac Type Severity Reaction Status Date / Time No Known Allergies Allergy Verified 06/28/18 09:15 Physical Exam Vitals: Vital Signs Temp Pulse Resp BP Pulse Ox 06/28/18 11:13 79 16 131/63 93 L 06/28/18 08:41 97.5 F L 85 18 90/55 98 Intake and Output 06/27/18 06/28/18 06/28/18 22:59 06:59 14:59 Other: Weight 65.317 kg Gen: This is an 83-year-old female. She is resting on the ER stretcher and appears to be comfortable and in no acute distress. HEENT: Head is atraumatic, normocephalic. Pupils equal, round. Sclerae is anicteric. NECK: Supple. No JVD. No lymphadenopathy. No thyromegaly. LUNGS: Clear to auscultation. No wheezes or rhonchi. No intercostal retractions. HEART: Regular rate and rhythm. No murmur. ABDOMEN: Soft. Bowel sounds are present. No masses. No tenderness. EXTREMITIES: No pedal edema. No calf tenderness. NEUROLOGICAL: Patient is awake, alert and oriented x3. Cranial nerves 2 through 12 are grossly intact. Results CBC & Chem 7: 06/28/18 09:26 06/28/18 09:26 Labs: Abnormal Lab Results - Last 24 Hours (Table) 06/28/18 06/28/18 06/28/18 Range/Units 09:26 09:26 09:26 WBC 11.1 H (3.8-10.6) k/uL Neutrophils # 9.3 H (1.3-7.7) k/uL Sodium 130 L (137-145) mmol/L Potassium 3.4 L (3.5-5.1) mmol/L Chloride 92 L (98-107) mmol/L BUN 68 H (7-17) mg/dL Creatinine 1.84 H (0.52-1.04) mg/dL Glucose 136 H (74-99) mg/dL Total Protein 6.1 L (6.3-8.2) g/dL Amylase <30 L (30-110) U/L Urine Appearance Cloudy H (Clear) Urine Protein Trace H (Negative) Urine Ketones Trace H (Negative) Ur Leukocyte Esterase Moderate H (Negative) Ur Squamous Epith Cells 5 H (0-4) /hpf Urine Bacteria Rare H (None) /hpf Hyaline Casts 13 H (0-2) /lpf Urine Mucus Rare H (None) /hpf Thrombosis Risk Factor Assmnt - DVT/VTE Prophylaxis DVT/VTE Prophylaxis: Pharmacologic Prophylaxis ordered Assessment and Plan Plan: 1. Acute kidney injury secondary to vomiting and diarrhea. Continue IV fluids at 75 mL per hour. Avoid nephrotoxic agents. Lasix and potassium on hold. Recheck basic metabolic panel in the morning. Next field 2. Hypertension. Continue hydralazine 50 mg twice daily and Zestoretic 1 daily, hold for systolic less than 110. 3. Gastroesophageal reflux disease. Continue Pepcid. 4. Rectocele with plan for surgical evaluation on July 07 in [place]. 5. DVT prophylaxis. Lovenox. 6. Generalized debilitation. PT and OT evaluations. Patient will be admitted to the hospital for a minimum of 2 night stay. Discharge plan: To be determined Impression and plan of care have been directed as dictated by the signing physician. Radha Edwards nurse practitioner acting as scribe for signing physician.
[2018-06-28] MEDS ORDERED: ACETAMINOPHEN TAB 325 MG TAB PO PRN (14:16)
[2018-06-28 14:24] VITALS: BMI 26.3
[2018-06-28] MEDS: SODIUM CHLORIDE 0.9% 1,000 ML IV SCH (14:46)
[2018-06-28] MEDS: MORPHINE SULFATE 2 MG/ML SYRINGE IVP PRN ×2 (14:47→20:45)
[2018-06-28] MEDS: PANTOPRAZOLE 40 MG TABLET PO SCH (18:30)
[2018-06-28] MEDS: hydrALAZINE HCL 50 MG TAB PO SCH (20:45)
[2018-06-29] MEDS: SODIUM CHLORIDE 0.9% 1,000 ML IV SCH (00:30)
[2018-06-29] MEDS: ENOXAPARIN 30 MG/0.3 ML SYRINGE SQ SCH (08:20)
[2018-06-29] MEDS: hydrALAZINE HCL 50 MG TAB PO SCH ×2 (08:20→20:44)
[2018-06-29] MEDS: PANTOPRAZOLE 40 MG TABLET PO SCH (08:20)
[2018-06-29] MEDS: ASPIRIN 81 MG PO SCH (08:20)
[2018-06-29] MEDS: MULTIVITAMINS, THERA 1 EACH TAB PO SCH (08:20)
[2018-06-29] MEDS: LISINOPRIL-HCTZ 20-25 MG 1 EACH TAB PO SCH (08:24)
[2018-06-29] MEDS: MORPHINE SULFATE 2 MG/ML SYRINGE IVP PRN ×2 (08:30→16:47)
[2018-06-29] MEDS ORDERED: FAMOTIDINE 20 MG TAB PO SCH (09:00)
[2018-06-29 10:44] LABS: Calcium 6.7 mg/dL (8.4-10.2); Potassium 3.2 mmol/L (3.5-5.1)
[2018-06-29] MEDS: POTASSIUM CHLORIDE ER 20 MEQ TAB.ER PO SCH ×2 (12:10→14:27)
--- NOTE | 2018-06-29 13:49 | P.PN ---
Subjective Progress Note Date: 06/29/18 This is an 83-year-old female patient of Dr. Castillo with past medical history of hypertension, gastroesophageal reflux disease, rectocele. Patient son gives history that she has had ongoing problems with rectocele. They were recently traveling and patient was admitted to [facility] in [place] and was treated that time for colitis with 2 antibiotics but then realized it was not colitis. She has since returned home and has [facility] has been subsequently referred to a surgeon and [facility] and has appointment on July 07 for evaluation of rectocele surgery. Patient has had ongoing problems with incontinence of liquid stool and just runs out of her. She denies any chest pain, shortness of breath, no fever or chills. There's been no blood in her stools or black tarry stools. She has lost about 10 pounds over the past month. Patient came in to [facility] emergency center for evaluation. She was afebrile, blood pressure 90/55, heart rate 85, white count was 11.1, hemoglobin 13.6. Sodium 1:30, potassium 3.4, chloride 92, CO2 26 BUN 16 creatinine 1.84 and blood sugar 136. Patient was known to have a normal creatinine in the past. Lactic acid was 1.1, liver function tests within normal limits, lipase 35. Urinalysis was cloudy, leukoesterase moderate, squamous cells 5, bacteria rare. Patient was started on IV Zofran and was also provided 1 L of IV fluids continued at 125 mL per hour and admitted to the MedSur floor. 06/29: Repeat lab work reveals sodium 133, potassium 3.2, chloride 100, CO2 30, B UN 41 creatinine 1.15. Blood sugar 140, calcium 6.7. Potassium will be replaced and IV fluids changed to saline lock. Patient states she is not really having any diarrhea just tiny pieces of stool. She feels a whole lot better from yesterday. The stool has been going on for greater than 1 month. We'll plan to monitor overnight and discharged home tomorrow. Objective - Vital Signs Vital signs: Vital Signs Temp 98.3 F 06/29/18 04:40 Pulse 68 06/29/18 08:13 Resp 20 06/29/18 04:40 BP 103/61 06/29/18 08:13 Pulse Ox 91 L 06/29/18 04:40 Intake & Output 06/28/18 06/29/18 06/29/18 18:59 06:59 18:59 Weight 65.317 kg Other: # Voids 6 1 # Bowel Movements 1 - Exam Review of Systems Constitutional: Denies anorexia, denies fatigue, denies malaise, denies poor appetite, Reports weakness, Reports weight loss, Denies chills, Denies fever, Denies lethargy Eyes: denies blurred vision, denies pain Ears, nose, mouth and throat: Denies dental pain, Denies dysphagia, Denies headache, Denies nasal congestion, Denies nasal discharge, Denies sore throat, Denies vertigo Cardiovascular: Denies chest pain, Denies decreased exercise tolerance, Denies dyspnea on exertion, Denies edema, Denies leg edema, Denies lightheadedness, Denies orthopnea, Denies palpitations, Denies shortness of breath, Denies syncope Respiratory: Denies cough, Denies cough with sputum, Denies dyspnea, Denies excessive sputum, Denies hemoptysis, Denies home oxygen, Denies wheezing Gastrointestinal: denies diarrhea, Reports loss of appetite, denies nausea, denies vomiting, Denies abdominal pain, Denies constipation, Denies hematemesis, Denies hematochezia, Denies jaundice, Denies melena Genitourinary: Denies dysuria, Denies hematuria, Denies urinary frequency Musculoskeletal: Denies frequent falls, Denies gait dysfunction, Denies myalgias Integumentary: Denies pruritus, Denies rash, Denies wounds Neurological: Denies aphasia, Denies change in mentation, Denies change in speech, Denies gait dysfunction, Denies head injury, Denies headaches, Denies numbness, Denies seizures, Denies weakness Psychiatric: Denies anxiety, Denies depression Endocrine: Denies fatigue, Denies weight change Gen: This is an 83-year-old female. She is resting in bed and appears to be comfortable and in no acute distress. HEENT: Head is atraumatic, normocephalic. Pupils equal, round. Sclerae is anicteric. NECK: Supple. No JVD. No lymphadenopathy. No thyromegaly. LUNGS: Clear to auscultation. No wheezes or rhonchi. No intercostal retractions. HEART: Regular rate and rhythm. No murmur. ABDOMEN: Soft. Bowel sounds are present. No masses. No tenderness. EXTREMITIES: No pedal edema. No calf tenderness. NEUROLOGICAL: Patient is awake, alert and oriented x3. Cranial nerves 2 through 12 are grossly intact. - Labs CBC & Chem 7: 06/28/18 09:26 06/29/18 10:12 Labs: Abnormal Lab Results - Last 24 Hours (Table) 06/29/18 Range/Units 10:12 Sodium 133 L (137-145) mmol/L Potassium 3.2 L (3.5-5.1) mmol/L BUN 41 H (7-17) mg/dL Creatinine 1.15 H (0.52-1.04) mg/dL Glucose 140 H (74-99) mg/dL Calcium 6.7 L (8.4-10.2) mg/dL Assessment and Plan Plan: 1. Acute kidney injury secondary to vomiting and diarrhea. Discontinue IV fluids. Avoid nephrotoxic agents. Lasix and potassium on hold. Recheck basic metabolic panel in the morning. 2. Hypertension. Continue hydralazine 50 mg twice daily and Zestoretic 1 daily, hold for systolic less than 110. 3. Gastroesophageal reflux disease. Continue Pepcid. 4. Rectocele with plan for surgical evaluation on July 07 in [place]. 5. DVT prophylaxis. Lovenox. 6. Generalized debilitation. PT and OT evaluations. Discharge plan: Home tomorrow Impression and plan of care have been directed as dictated by the signing physician. Radha Edwards nurse practitioner acting as scribe for signing physician.
[2018-06-30] MEDS: MORPHINE SULFATE 2 MG/ML SYRINGE IVP PRN (07:36)
[2018-06-30] MEDS: PANTOPRAZOLE 40 MG TABLET PO SCH (07:37)
[2018-06-30] MEDS: hydrALAZINE HCL 50 MG TAB PO SCH ×2 (07:38→20:26)
[2018-06-30] MEDS: MULTIVITAMINS, THERA 1 EACH TAB PO SCH (07:38)
[2018-06-30] MEDS: LISINOPRIL-HCTZ 20-25 MG 1 EACH TAB PO SCH (07:38)
[2018-06-30] MEDS: ENOXAPARIN 30 MG/0.3 ML SYRINGE SQ SCH (07:38)
[2018-06-30] MEDS: ASPIRIN 81 MG PO SCH (07:38)
[2018-06-30 09:20] LABS: Calcium 7.8 mg/dL (8.4-10.2); Potassium 4.4 mmol/L (3.5-5.1)
[2018-06-30] MEDS: traMADol 50 MG TAB PO PRN (15:59)
[2018-06-30] MEDS ORDERED: traMADol 50 MG TAB PO SCH (16:00)
--- NOTE | 2018-06-30 16:08 | P.PN ---
Subjective Progress Note Date: 06/30/18 This is an 83-year-old female patient of Dr. Castillo with past medical history of hypertension, gastroesophageal reflux disease, rectocele. Patient son gives history that she has had ongoing problems with rectocele. They were recently traveling and patient was admitted to [facility] in [place] and was treated that time for colitis with 2 antibiotics but then realized it was not colitis. She has since returned home and [facility] has been subsequently referred to a surgeon and [facility] and has appointment on July 07 for evaluation of rectocele surgery. Patient has had ongoing problems with incontinence of liquid stool and just runs out of her. She denies any chest pain, shortness of breath, no fever or chills. There's been no blood in her stools or black tarry stools. She has lost about 10 pounds over the past month. Patient came in to [facility] emergency center for evaluation. She was afebrile, blood pressure 90/55, heart rate 85, white count was 11.1, hemoglobin 13.6. Sodium 1:30, potassium 3.4, chloride 92, CO2 26 BUN 16 creatinine 1.84 and blood sugar 136. Patient was known to have a normal creatinine in the past. Lactic acid was 1.1, liver function tests within normal limits, lipase 35. Urinalysis was cloudy, leukoesterase moderate, squamous cells 5, bacteria rare. Patient was started on IV Zofran and was also provided 1 L of IV fluids continued at 125 mL per hour and admitted to the MedSur floor. 06/29: Repeat lab work reveals sodium 133, potassium 3.2, chloride 100, CO2 30, B UN 41 creatinine 1.15. Blood sugar 140, calcium 6.7. Potassium will be replaced and IV fluids changed to saline lock. Patient states she is not really having any diarrhea just tiny pieces of stool. She feels a whole lot better from yesterday. The stool has been going on for greater than 1 month. We'll plan to monitor overnight and discharged home tomorrow. 06/30: Patient has been afebrile, heart rate in the 60s to 80s, blood pressure 117/61, pulse ox 91-93% on room air. Repeat lab work reveals sodium 137, potassium 4.4, chloride 106, CO2 25, BUN 28 and creatinine 1.05. Patient is eating 75-100% of her meals. She is complaining of continued pain for which she is on IV morphine. We will transition her to tramadol overnight and plan for discharge home tomorrow. Objective - Vital Signs Vital signs: Vital Signs Temp 97.3 F L 06/30/18 13:32 Pulse 57 L 06/30/18 13:32 Resp 16 06/30/18 13:32 BP 112/60 06/30/18 13:32 Pulse Ox 97 06/30/18 13:32 Intake & Output 06/29/18 06/30/18 06/30/18 18:59 06:59 18:59 Weight 65.317 kg Other: # Voids 5 3 5 # Bowel Movements 1 1 - Exam Review of Systems Constitutional: Denies anorexia, denies fatigue, denies malaise, denies poor appetite, Reports weakness, Reports weight loss, Denies chills, Denies fever, Denies lethargy Eyes: denies blurred vision, denies pain Ears, nose, mouth and throat: Denies dental pain, Denies dysphagia, Denies headache, Denies nasal congestion, Denies nasal discharge, Denies sore throat, Denies vertigo Cardiovascular: Denies chest pain, Denies decreased exercise tolerance, Denies dyspnea on exertion, Denies edema, Denies leg edema, Denies lightheadedness, Denies orthopnea, Denies palpitations, Denies shortness of breath, Denies syncope Respiratory: Denies cough, Denies cough with sputum, Denies dyspnea, Denies excessive sputum, Denies hemoptysis, Denies home oxygen, Denies wheezing Gastrointestinal: denies diarrhea, Reports loss of appetite, denies nausea, denies vomiting, reports abdominal pain, Denies constipation, Denies hematemesis, Denies hematochezia, Denies jaundice, Denies melena Genitourinary: Denies dysuria, Denies hematuria, Denies urinary frequency Musculoskeletal: Denies frequent falls, Denies gait dysfunction, Denies myalgias Integumentary: Denies pruritus, Denies rash, Denies wounds Neurological: Denies aphasia, Denies change in mentation, Denies change in speech, Denies gait dysfunction, Denies head injury, Denies headaches, Denies numbness, Denies seizures, Denies weakness Psychiatric: Denies anxiety, Denies depression Endocrine: Denies fatigue, Denies weight change Gen: This is an 83-year-old female. She is resting in bed and appears to be comfortable and in no acute distress. HEENT: Head is atraumatic, normocephalic. Pupils equal, round. Sclerae is anicteric. NECK: Supple. No JVD. No lymphadenopathy. No thyromegaly. LUNGS: Clear to auscultation. No wheezes or rhonchi. No intercostal retractio ns. HEART: Regular rate and rhythm. No murmur. ABDOMEN: Soft. Bowel sounds are present. No masses. No tenderness. EXTREMITIES: No pedal edema. No calf tenderness. NEUROLOGICAL: Patient is awake, alert and oriented x3. Cranial nerves 2 through 12 are grossly intact. - Labs CBC & Chem 7: 06/28/18 09:26 06/30/18 08:39 Labs: Abnormal Lab Results - Last 24 Hours (Table) 06/30/18 Range/Units 08:39 BUN 28 H (7-17) mg/dL Creatinine 1.05 H (0.52-1.04) mg/dL Glucose 110 H (74-99) mg/dL Calcium 7.8 L (8.4-10.2) mg/dL Assessment and Plan Plan: 1. Acute kidney injury secondary to vomiting and diarrhea. Discontinue IV fluids. Avoid nephrotoxic agents. Lasix and potassium on hold. 2. Hypertension. Continue hydralazine 50 mg twice daily and Zestoretic 1 daily, hold for systolic less than 110. 3. Gastroesophageal reflux disease. Continue Pepcid. 4. Rectocele with plan for surgical evaluation on July 07 in [place]. 5. DVT prophylaxis. Lovenox. 6. Generalized debilitation. PT and OT evaluations. Discharge plan: Home tomorrow. Transition IV morphine to oral tramadol. Impression and plan of care have been directed as dictated by the signing physician. Radha Edwards nurse practitioner acting as scribe for signing physician.
[2018-07-01] MEDS: traMADol 50 MG TAB PO PRN ×2 (03:57→12:16)
[2018-07-01] MEDS: MULTIVITAMINS, THERA 1 EACH TAB PO SCH (07:47)
[2018-07-01] MEDS: hydrALAZINE HCL 50 MG TAB PO SCH (07:47)
[2018-07-01] MEDS: PANTOPRAZOLE 40 MG TABLET PO SCH (07:47)
[2018-07-01] MEDS: ASPIRIN 81 MG PO SCH (07:47)
[2018-07-01] MEDS: LISINOPRIL-HCTZ 20-25 MG 1 EACH TAB PO SCH (07:48)
[2018-07-01] MEDS ORDERED: ENOXAPARIN 40 MG/0.4 ML SYRINGE SQ SCH (09:00)
[2018-07-01 13:40] VITALS: BP 101/67; PULSE 76; RESP 16; TEMP 97.9
--- NOTE | 2018-07-01 15:22 | P.DS ---
Providers Date of admission: 06/28/18 13:11 Expected date of discharge: 07/01/18 Attending physician: Bob Peña [facility] Course: This is an 83-year-old female patient of Dr. Castillo with past medical history of hypertension, gastroesophageal reflux disease, rectocele. Patient son gives history that she has had ongoing problems with rectocele. They were recently traveling and patient was admitted to [facility] in [place] and was treated that time for colitis with 2 antibiotics but then realized it was not colitis. She has since returned home and [facility] has been subsequently referred to a surgeon and [facility] and has appointment on July 07 for evaluation of rectocele surgery. Patient has had ongoing problems with incontinence of liquid stool and just runs out of her. She denies any chest pain, shortness of breath, no fever or chills. There's been no blood in her stools or black tarry stools. She has lost about 10 pounds over the past month. Patient came in to [facility] emergency center for evaluation. She was afebrile, blood pressure 90/55, heart rate 85, white count was 11.1, hemoglobin 13.6. Sodium 1:30, potassium 3.4, chloride 92, CO2 26 BUN 16 creatinine 1.84 and blood sugar 136. Patient was known to have a normal creatinine in the past. Lactic acid was 1.1, liver function tests within normal limits, lipase 35. Urinalysis was cloudy, leukoesterase moderate, squamous cells 5, bacteria rare. Patient was started on IV Zofran and was also provided 1 L of IV fluids continued at 125 mL per hour and admitted to the MedSur floor. 06/29: Repeat lab work reveals sodium 133, potassium 3.2, chloride 100, CO2 30, BUN 41 creatinine 1.15. Blood sugar 140, calcium 6.7. Potassium will be replaced and IV fluids changed to saline lock. Patient states she is not really having any diarrhea just tiny pieces of stool. She feels a whole lot better from yesterday. The stool has been going on for greater than 1 month. We'll plan to monitor overnight and discharged home tomorrow. 06/30: Patient has been afebrile, heart rate in the 60s to 80s, blood pressure 117/61, pulse ox 91-93% on room air. Repeat lab work reveals sodium 137, potassium 4.4, chloride 106, CO2 25, BUN 28 and creatinine 1.05. Patient is eating 75-100% of her meals. She is complaining of continued pain for which she is on IV morphine. We will transition her to tramadol overnight and plan for discharge home tomorrow. 07/01: The patient has been off morphine for greater than 24 hours. She is tolerating Toradol and a 3 day prescription will be provided. Patient also provided with prescription for Protonix and we are adjusting her home Lasix and potassium. She states she still has some burning in the epigastric area. Diarrhea is improved. No nausea or vomiting. Patient will be discharged home today in stable condition. Talked back form has been completed with the patient and she verbalizes understanding. Discharge diagnoses: 1. Acute kidney injury secondary to vomiting and diarrhea. 2. Hypertension. 3. Gastroesophageal reflux disease. 4. Rectocele with plan for surgical evaluation on July 07 in [place]. Discharge plan: Home Impression and plan of care have been directed as dictated by the signing physician. Radha Edwards nurse practitioner acting as scribe for signing physician. Patient Condition at Discharge: Good Plan - Discharge Summary Discharge Rx Participant: No New Discharge Prescriptions: New Pantoprazole [Protonix] 40 mg PO AC-BRKFST #30 tablet. traMADol HCl [Ultram] 50 mg PO TID PRN #9 tab PRN Reason: Mild To Moderate Pain Continue Multivitamins, Thera [Multivitamin (formulary)] 1 tab PO DAILY Red Yeast Rice 600 mg PO DAILY Calcium Carbonate [Calcium] 600 mg PO DAILY Aspirin [Adult Low Dose Aspirin EC] 81 mg PO DAILY hydrALAZINE HCL [Apresoline] 50 mg PO BID Lisinopril-Hctz 20-25 mg [Zestoretic 20-25] 1 tab PO DAILY Ondansetron HCl [Zofran] 4 mg PO BID PRN PRN Reason: Nausea And Vomiting Cholecalciferol [Vitamin D3 (25 Mcg = 1000 Iu)] 1,000 unit PO DAILY Changed Potassium Chloride [Klor-Con 10] 10 meq PO Q48H #0 Furosemide [Lasix] 20 mg PO Q48H #0 Discontinued Famotidine [Pepcid AC] 10 mg PO DAILY Discharge Medication List Calcium Carbonate [Calcium] 600 mg PO DAILY 06/28/16 [History] Multivitamins, Thera [Multivitamin (formulary)] 1 tab PO DAILY 06/28/16 [History] Red Yeast Rice 600 mg PO DAILY 06/28/16 [History] Aspirin [Adult Low Dose Aspirin EC] 81 mg PO DAILY 05/25/17 [History] Cholecalciferol [Vitamin D3 (25 Mcg = 1000 Iu)] 1,000 unit PO DAILY 06/28/18 [History] Lisinopril-Hctz 20-25 mg [Zestoretic 20-25] 1 tab PO DAILY 06/28/18 [History] Ondansetron HCl [Zofran] 4 mg PO BID PRN 06/28/18 [History] hydrALAZINE HCL [Apresoline] 50 mg PO BID 06/28/18 [History] Furosemide [Lasix] 20 mg PO Q48H #0 07/01/18 [Rx] Pantoprazole [Protonix] 40 mg PO INGE-KASHMIRKFSConstantine #30 tablet. 07/01/18 [Rx] Potassium Chloride [Klor-Con 10] 10 meq PO Q48H #0 07/01/18 [Rx] traMADol HCl [Ultram] 50 mg PO TID PRN #9 tab 07/01/18 [Rx] Follow up Appointment(s)/Referral(s): Andrew Castillo MD [Primary Care Provider] - 1 Week (Please call office to make appointment) Patient Instructions/Handouts: Dehydration (DC), Ileus (DC) Activity/Diet/Wound Care/Special Instructions: Activity as tolerated. Please maintain follow up. Discharge Disposition: HOME SELF-CARE
== END 2018-07-01 14:53 | disposition home or self-care (01) | DRG 683 ==
LOC: EC 08:34 → 3NMEDONC 10:58 → OBSVTOIN 13:11 → 4MS4W 13:14
PROVIDERS: ADMIT Internal Medicine; ATTEND Internal Medicine
DX: N17.9 Acute kidney failure, unspecified (principal); E87.1 Hypo-osmolality and hyponatremia; N81.6 Rectocele; E86.0 Dehydration; F32.9 Major depressive disorder, single episode, unspecified; I10 Essential (primary) hypertension; K21.9 Gastro-esophageal reflux disease without esophagitis; Z79.82 Long term (current) use of aspirin; Z79.899 Other long term (current) drug therapy; Z82.3 Family history of stroke; Z82.49 Family history of ischemic heart disease and other diseases of the circulatory system; Z83.3 Family history of diabetes mellitus; Z87.891 Personal history of nicotine dependence; Z90.710 Acquired absence of both cervix and uterus; Z90.49 Acquired absence of other specified parts of digestive tract; R63.4 Abnormal weight loss; Z68.26 Body mass index [BMI] 26.0-26.9, adult; R15.9 Full incontinence of feces
CPT/HCPCS: 36415; 74018; 80048; 80053; 81001; 82150; 83605; 83690; 85025; 87324; 96361; 96374; 99285

== ENCOUNTER → 2018-09-01 | Outpatient (CLI) | payer MEDICARE, BC ==
--- NOTE | 2018-09-01 12:25 | FL ---
EXAMINATION TYPE: FL single contrast barium enema DATE OF EXAM: 09/01/2018 COMPARISON: 06/28/2018 HISTORY: 83-year-old female colon cancer screening, rectocele, failed colonoscopy. Unable to advance through a tight stricture at the level of the sigmoid colon. TECHNIQUE: A single contrast barium enema study is performed. Total fluoroscopy time: 1 minute 15 seconds. Total images: 32. 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 Supine imaging limited for assessment of free air. There is sigmoid diverticulosis. On the LPO view, located approximately 20 cm from the anal verge amador ng the mid sigmoid colon is a focal severe stricture 5 cm. Contrast administration became painful and there is leakage but there is gradual passage across the s tricture with filling of dilated colon. Administration became too painful to continue and the exam ho wever filling of the entire ascending colon and cecum. Incidental L1 anterior wedging deformity which is age indeterminate. IMPRESSION: 1. Severely distended transverse colon measuring up to 9.4 cm which [address] the patient at risk for pe rforation. 2. Sigmoid diverticulosis with a 5 cm long tight stricture at the level of the mid sigmoid. Rectal co ntrast administration became painful for the patient due to the degree of rectal distention. Contrast eventually traverses the stricture but the exam is stopped before complete filling of the ascending colon and cecum due to patient pain. 3. The stricture could be secondary to chronic diverticulitis or underlying constricting neoplasm.
== END | disposition home or self-care (01) ==
LOC: RADFLMAIN 08:41
PROVIDERS: ATTEND Surgery
DX: K63.89 Other specified diseases of intestine (principal); K57.30 Diverticulosis of large intestine without perforation or abscess without bleeding; Z12.11 Encounter for screening for malignant neoplasm of colon
CPT/HCPCS: 74270

== ENCOUNTER 2018-09-26 16:32 | Inpatient (IN) | payer MEDICARE, BC ==
[2018-09-26] MEDS ORDERED: ONDANSETRON 4 MG/2 ML VIAL IVP STA (17:46)
[2018-09-26] MEDS ORDERED: SODIUM CHLORIDE 0.9% 1,000 ML IV STA (17:46)
[2018-09-26 17:58] LABS: Anisocytosis Slight; Basophils % (A) 0 %; Eosinophils % (A) 0 %; HCT 36.5 % (34.0-46.0); HGB 11.8 gm/dL (11.4-16.0); Lymphocytes # (A) 1.7 k/uL (1.0-4.8); Lymphocytes % (A) 26 %; MCH 27.6 pg (25.0-35.0); MCHC 32.3 g/dL (31.0-37.0); MCV 85.5 fL (80.0-100.0); Mean Platelet Volume 7.4; Monocytes # (A) 0.5 k/uL (0-1.0); Monocytes % (A) 7 %; Neutrophils # (A) 4.2 k/uL (1.3-7.7); Neutrophils % (A) 64 %; Platelet Count 324 k/uL (150-450); RBC 4.27 m/uL (3.80-5.40); RDW 16.3 % (11.5-15.5); WBC 6.6 k/uL (3.8-10.6)
[2018-09-26 18:13] LABS: Albumin 4.2 g/dL (3.5-5.0); Calcium 9.4 mg/dL (8.4-10.2); Potassium 3.7 mmol/L (3.5-5.1); Total Bilirubin 0.7 mg/dL (0.2-1.3)
--- NOTE | 2018-09-26 18:16 | XR ---
EXAMINATION TYPE: XR KUB DATE OF EXAM: 09/26/2018 6:02 PM CLINICAL HISTORY: Abdominal pain with vomiting and diarrhea for one day TECHNIQUE: Two Upright KUB images of the abdomen are obtained. COMPARISON: Barium enema study September 01, 2018. FINDINGS gas dilated colon with air-fluid levels redemonstrated slightly less prominent than from [facility] iu enema study September 01. Findings correlate with presumed severe stricture related to chronic divertic ulitis or neoplasm as stated on enema report. Overlying right abdominal sutures redemonstrated. Moder ate to severe axial joint space loss and spurring of both hips is redemonstrated. Left-sided pelvic p hleboliths are felt present. IMPRESSION: Persistent distal colonic obstruction likely slightly improved from September 01.
--- NOTE | 2018-09-26 18:25 | ED ---
General Adult HPI <Kwame Nelson - Last Filed: 09/26/18 20:08> - General Source: patient Mode of arrival: wheelchair Limitations: no limitations <Jericho Barrientos - Last Filed: 09/26/18 20:29> - General Chief complaint: Nausea/Vomiting/Diarrhea Stated complaint: abdominal pain/diarrhea Time Seen by Provider: 09/26/18 16:47 - History of Present Illness Initial comments: Patient is an 83-year-old female presenting to the emergency department with a chief complaint of nausea or vomiting. Patient reports developing the symptoms yesterday after she. Patient has a known bowel obstruction that was diagnosed by Dr. Lopez. Patient recently head a colonoscopy. Patient is scheduled to have a colon procedure this month by Dr. Manzo. Patient reports abdominal pain that originates in the epigastric area and radiates to the umbilicus. Patient reports the pain comes and goes and it is sharp in nature. Patient reports diarrhea for the past few months. But today she noticed small amounts of blood. (Jericho Barrientos) - Related Data Home Medications Medication Instructions Recorded Confirmed Calcium Carbonate [Calcium] 600 mg PO AC-LUNCH 06/28/16 09/26/18 Multivitamins, Thera [Multivitamin 1 tab PO AC-LUNCH 06/28/16 09/26/18 (formulary)] Red Yeast Rice 600 mg PO DAILY 06/28/16 09/26/18 Cholecalciferol [Vitamin D3 (25 1,000 unit PO AC-LUNCH 06/28/18 09/26/18 Mcg = 1000 Iu)] Lisinopril-Hctz 20-25 mg 1 tab PO DAILY 06/28/18 09/26/18 [Zestoretic 20-25] Ondansetron HCl [Zofran] 4 mg PO BID PRN 06/28/18 09/26/18 hydrALAZINE HCL [Apresoline] 50 mg PO BID 06/28/18 09/26/18 Iron 28mg 28 mg PO DAILY 09/26/18 09/26/18 Omeprazole Magnesium [PriLOSEC OTC] 20 mg PO DAILY 09/26/18 09/26/18 Previous Rx's Medication Instructions Recorded Furosemide [Lasix] 20 mg PO Q48H #0 07/01/18 Potassium Chloride [Klor-Con 10] 10 meq PO Q48H #0 07/01/18 Allergies Allergy/AdvReac Type Severity Reaction Status Date / Time No Known Allergies Allergy Verified 09/26/18 17:15 Review of Systems ROS Other: All systems not noted in ROS Statement are negative. <Kwame Nelson - Last Filed: 09/26/18 20:08> ROS Other: All systems not noted in ROS Statement are negative. <Jericho Barrientos - Last Filed: 09/26/18 20:29> ROS Statement: Those systems with pertinent positive or pertinent negative responses have been documented in the HPI. Past Medical History Past Medical History: GERD/Reflux, Hypertension, Osteoarthritis (OA) Additional Past Medical History / Comment(s): Rectocele, hepatitis c (in remission now), History of Any Multi-Drug Resistant Organisms: None Reported Past Surgical History: Cholecystectomy, Hysterectomy Additional Past Surgical History / Comment(s): LEFT KNEE, on water pill (lasix) for feet swelling (denies CHF), Past Psychological History: Depression Smoking Status: Former smoker Past Alcohol Use History: None Reported Past Drug Use History: None Reported - Past Family History Father Additional Family Medical History / Comment(s): Patient's father in his 70s who with history of diabetes and coronary artery disease. Mother Additional Family Medical History / Comment(s): Her mother in her 70s from unknown cause. Brother(s) Additional Family Medical History / Comment(s): Patient has 4 brothers and 3 have and all brothers have had diabetes and coronary artery disease. Sister(s) Additional Family Medical History / Comment(s): Patient has 3 sisters that have all . One from CVA. 2 sisters with coronary artery disease and diabetes. Patient has one son known to have diabetes. <Jericho Barrientos - Last Filed: 09/26/18 20:29> General Exam Limitations: no limitations <Jericho Barrientos - Last Filed: 09/26/18 20:29> - General Exam Comments Initial Comments: General: Well-developed well-nourished distress HEENT: Normocephalic/atraumatic, PERLL, pharynx erythema, swallowing well, EAC no erythema, no exudates, TM clear, no cervical lymph nodes, dry mucous membra eros Neck: Supple, nontender, trachea midline Chest/Lungs: Normal respirations, no signs of respiratory distress clear to auscultation bilaterally no wheezes, rales, rhonchi Cardiac: Regular rate and rhythm, normal S1-S2, no murmurs rubs or gallops Abdomen/GI: Soft, epigastric pain on palpation that radiates to the umbilicus, negative Roberts sign, negative McBurney point tenderness, negative rebound tenderness, no acute abdomen Musculoskeletal: Nontender, full range of motion, no edema, strength equal bilaterally Skin: Warmth, no rashes or lesions, no cyanosis or diaphoresis Neurologic: AAO x 3, CN 2-12 intact, Psychiatric: Mood and affect normal, judgment normal (Jericho Barrientos) Course <Kwame Nelson - Last Filed: 09/26/18 20:08> Vital Signs 09/26/18 09/26/18 16:41 19:45 Temperature 97.8 F Pulse Rate 85 80 Respiratory 16 17 Rate Blood Pressure 104/68 101/66 O2 Sat by Pulse 95 97 Oximetry - Reevaluation(s) Reevaluation #1: 09/26/18 20:08 Case discussed with practitioner Demetrio. Chart reviewed. Case also discussed with Dr. Velez, who will admit covering for Dr. Castillo. Dr. Manzo will be placed on surgical consult. (Kwame Nelson) Medical Decision Making - Lab Data Result diagrams: 09/26/18 17:18 09/26/18 17:18 <Kwame Nelson - Last Filed: 09/26/18 20:08> - Lab Data Result diagrams: 09/26/18 17:18 09/26/18 17:18 <Jericho Barrientos - Last Filed: 09/26/18 20:29> - Medical Decision Making Patient is an 83-year-old female presenting to emergency Department with a chief complaint of nausea and vomiting. KUB is showing persistent distal colonic obstruction likely slightly improved from September 01. There is a gas dilated colon with air-fluid levels. CBC is unremarkable. CMP showed elevated BUN and creatinine levels most likely due to dehydration. Patient reports finding anything since yesterday. Case was discussed with Dr. Nelson. NG tube placed. Patient will be admitted for further management. Admitting physician is Dr. Antonio. Dr. Manzo will be consulted (Jericho Barrientos) - Lab Data Lab Results 09/26/18 09/26/18 Range/Units 17:18 17:18 WBC 6.6 (3.8-10.6) k/uL RBC 4.27 (3.80-5.40) m/uL Hgb 11.8 (11.4-16.0) gm/dL Hct 36.5 (34.0-46.0) % MCV 85.5 (80.0-100.0) fL MCH 27.6 (25.0-35.0) pg MCHC 32.3 (31.0-37.0) g/dL RDW 16.3 H (11.5-15.5) % Plt Count 324 (150-450) k/uL Neutrophils % 64 % Lymphocytes % 26 % Monocytes % 7 % Eosinophils % 0 % Basophils % 0 % Neutrophils # 4.2 (1.3-7.7) k/uL Lymphocytes # 1.7 (1.0-4.8) k/uL Monocytes # 0.5 (0-1.0) k/uL Eosinophils # 0.0 (0-0.7) k/uL Basophils # 0.0 (0-0.2) k/uL Anisocytosis Slight Sodium 137 (137-145) mmol/L Potassium 3.7 (3.5-5.1) mmol/L Chloride 100 (98-107) mmol/L Carbon Dioxide 23 (22-30) mmol/L Anion Gap 14 mmol/L BUN 41 H (7-17) mg/dL Creatinine 1.57 H (0.52-1.04) mg/dL Est GFR (CKD-EPI)AfAm 35 (>60 ml/min/1.73 sqM) Est GFR (CKD-EPI)NonAf 31 (>60 ml/min/1.73 sqM) Glucose 125 H (74-99) mg/dL Calcium 9.4 (8.4-10.2) mg/dL Total Bilirubin 0.7 (0.2-1.3) mg/dL AST 24 (14-36) U/L ALT 17 (9-52) U/L Alkaline Phosphatase 66 (38-126) U/L Total Protein 7.0 (6.3-8.2) g/dL Albumin 4.2 (3.5-5.0) g/dL Amylase 35 (30-110) U/L Lipase 23 (23-300) U/L Disposition <Kwame Nelson - Last Filed: 09/26/18 20:08> Is patient prescribed a controlled substance at d/c from ED?: No Time of Disposition: 20:28 <Jericho Barrientos - Last Filed: 09/26/18 20:29> Clinical Impression: Colonic obstruction Disposition: ADMITTED IP TO THIS HOSP Condition: Stable Instructions (If sedation given, give patient instructions): Acute Nausea and Vomiting (ED) Additional Instructions: Patient will be admitted. Referrals: Andrew Castillo MD [Primary Care Provider] - 1-2 days
[2018-09-26] MEDS ORDERED: NALOXONE 0.4 MG/ML 1 ML VIAL IV PRN (21:22)
[2018-09-26] MEDS: SODIUM CHLORIDE 0.9% 1,000 ML IV SCH (22:15)
--- NOTE | 2018-09-26 22:25 | XR ---
EXAM: XR Chest, 1 View CLINICAL HISTORY: ITS.REASON XR Reason: NG placement TECHNIQUE: Frontal view of the chest. COMPARISON: 09/26/18 IMPRESSION: Tip of the feeding tube is not well characterized due to overlapping structures. It appears to disappear somewhere in the epigastric region. There may be around the GE junction. Recommend advancing 5 cm. Also recommend chest x-ray and KUB for follow-up.
[2018-09-27 03:22] LABS: Appearance,Urine Clear (Clear); Bacteria,Urine Rare /hpf; Bilirubin,Urine Negative (Negative); Blood,Urine Negative (Negative); Color,Urine Yellow; Glucose,Urine (UA) Negative (Negative); Hyaline Casts,Urine 8 /lpf (0-2); Ketones,Urine Negative (Negative); Leukocyte Esterase,Urine Small (Negative); Mucus,Urine Rare /hpf; Nitrite,Urine Negative (Negative); Protein,Urine Trace (Negative); RBC,Urine 2 /hpf (0-5); Specific Gravity,Urine 1.012 (1.001-1.035); Squamous Epithelial Cell,Urine 4 /hpf (0-4); Urobilinogen,Urine <2.0 mg/dL (<2.0); WBC,Urine 5 /hpf (0-5)
[2018-09-27 08:23] LABS: Calcium 8.5 mg/dL (8.4-10.2); Potassium 3.1 mmol/L (3.5-5.1)
[2018-09-27] MEDS ORDERED: PANTOPRAZOLE 40 MG TABLET PO SCH (09:00)
[2018-09-27] MEDS: FERROUS SULFATE 325 MG TAB PO SCH (09:08)
[2018-09-27] MEDS: MULTIVITAMINS, THERA 1 EACH TAB PO SCH (09:08)
[2018-09-27] MEDS: PANTOPRAZOLE 40 MG/10 ML VIAL IVP SCH ×2 (09:23→20:54)
[2018-09-27] MEDS: hydrALAZINE HCL 50 MG TAB PO SCH ×2 (09:24→20:54)
--- NOTE | 2018-09-27 14:18 | XR ---
EXAMINATION TYPE: XR chest 2V DATE OF EXAM: 09/27/2018 HISTORY: obstruction. REFERENCE: Previous study dated 09/26/2018. FINDINGS: There is colonic interposition on the right and on the left. There is fairly marked elevati on of the right hemidiaphragm. There is mild atelectatic change present in both lung bases. Heart siz e is obscured. Pleural spaces are clear. IMPRESSION: 1. CONTINUING DILATATION OF THE COLON. 2. BIBASILAR ATELECTASIS.
--- NOTE | 2018-09-27 14:20 | XR ---
EXAMINATION TYPE: XR abdomen 2V , 2 VIEWS DATE OF EXAM ORDERED: 09/27/2018 HISTORY: obstruction. COMPARISON: Previous study dated 09/26/2018. FINDINGS: There is fairly marked colonic distention with maximal transverse diameter reaching 10 cm. There is colonic interposition bilaterally. There are air-fluid levels present within the abdomen. N o definite free air is seen. There are calcifications in the left side of the pelvis. Etiology is unc ertain. IMPRESSION: CONTINUING COLONIC ILEUS VERSUS OBSTRUCTION.
--- NOTE | 2018-09-27 15:55 | P.HPIM ---
History of Present Illness H&P Date: 09/27/18 This is an 83-year-old female patient of Dr. Castillo with past medical history of hypertension, gastroesophageal reflux disease, rectocele. Patient was recently hospitalized in June 2018 and son gave this history of ongoing problems with rectocele. They were recently traveling and patient was admitted to [facility] in [place] and was treated that time for colitis with 2 antibiotics but then realized it was not colitis. She has since returned home and [facility] has been subsequently referred to a surgeon in [place] of rectocele surgery. The patient was admitted in June for acute kidney injury due to vomiting and diarrhea, hypertension, rectocele and GERD. She was discharged home with follow-up with Dr. Castillo and has subsequently seen by Dr. Manzo and underwent colonoscopy about 2 and half weeks ago which patient states she had a colon blockage in the upper part of the colon and could not get through. Patient complains of diarrhea and vomiting that started on Friday and got worse yesterday. She denies having any chest pain or shortness of breath. She denies any fever or chills. Today she states her abdomen is not bad. She did have a diarrhea stool today at around 10 AM that was non-bloody. KUB revealed persistent distal colonic obstruction likely improved from September 11. Patient underwent a barium enema study on September 01 as an outpatient which revealed severely distended transverse colon measuring up to 9.4 [address] the patient risk for perforation. Sigmoid diverticulosis with a 5 cm long tight stricture at the level of the mid sigmoid. Rectal contrast administration became painful for the patient due to the degree of rectal distention. Contrast eventually traverses the stricture but the exam is stopped before complete filling of the ascending colon and cecum due to patient pain. The stricture cou ld be secondary to chronic diverticulitis or underlying constricting neoplasm. Chest x-ray done for NG tube placed that revealed the tube was not well characterized and recommended advancing. Patient was found to be afebrile, blood pressure 104/68, heart rate 85, pulse ox 95%. White count was normal at 6.6, hemoglobin 11.8. Electrolytes within normal limits, BUN 41 creatinine 1.57, blood sugar 125. NG tube was placed in the emergency center and [facility] and consult has been added for general surgery. Repeat chest x-ray reveals continuing dilatation of the colon, bibasilar atelectasis. Abdominal x-rays reveal continuing colonic ileus versus obstruction. Review of Systems Constitutional: Reports poor appetite, Denies chills, Denies fatigue, Denies fever, Denies weakness, Denies weight loss Ears, nose, mouth and throat: Denies dental pain, Denies dysphagia, Denies mouth pain, Denies nasal congestion, Denies nasal discharge, Denies vertigo Cardiovascular: Denies chest pain, Denies decreased exercise tolerance, Denies dyspnea on exertion, Denies edema, Denies leg edema, Denies lightheadedness, Denies syncope Respiratory: Denies congestion, Denies cough, Denies cough with sputum, Denies dyspnea, Denies excessive sputum, Denies hemoptysis, Denies home oxygen, Denies wheezing Gastrointestinal: Reports abdominal pain, Reports diarrhea, Reports loss of appetite, Reports nausea, Reports vomiting Genitourinary: Denies dysuria, Denies hematuria, Denies urgency, Denies urinary frequency Musculoskeletal: Denies frequent falls, Denies gait dysfunction, Denies myalgias Integumentary: Denies pruritus, Denies rash, Denies wounds Neurological: Denies change in mentation, Denies change in speech, Denies conf usion, Denies seizures, Denies syncope Psychiatric: Denies anxiety, Denies depression Endocrine: Denies fatigue, Denies weight change Past Medical History Past Medical History: GERD/Reflux, Hypertension, Osteoarthritis (OA) Additional Past Medical History / Comment(s): Rectocele, hepatitis c (in remission now), History of Any Multi-Drug Resistant Organisms: None Reported Past Surgical History: Cholecystectomy, Hysterectomy Additional Past Surgical History / Comment(s): LEFT KNEE, on water pill (lasix) for feet swelling (denies CHF), Past Psychological History: Depression Smoking Status: Former smoker Past Alcohol Use History: None Reported Additional Past Alcohol Use History / Comment(s): The patient was a remote smoker and quit at age 29. No marijuana or illicit drug use or alcohol use. Patient lives at home with her wilneron. They do travel yearly to [place] and back. Past Drug Use History: None Reported - Past Family History Father Additional Family Medical History / Comment(s): Patient's father in his 70s who with history of diabetes and coronary artery disease. Mother Additional Family Medical History / Comment(s): Her mother in her 70s from unknown cause. Brother(s) Additional Family Medical History / Comment(s): Patient has 4 brothers and 3 have and all brothers have had diabetes and coronary artery disease. Sister(s) Additional Family Medical History / Comment(s): Patient has 3 sisters that have all . One from CVA. 2 sisters with coronary artery disease and diabetes. Patient has one son known to have diabetes. Medications and Allergies Home Medications Medication Instructions Recorded Confirmed Type Calcium Carbonate [Calcium] 600 mg PO AC-LUNCH 06/28/16 09/26/18 History Multivitamins, Thera [Multivitamin 1 tab PO AC-LUNCH 06/28/16 09/26/18 History (formulary)] Red Yeast Rice 600 mg PO DAILY 06/28/16 09/26/18 History Cholecalciferol [Vitamin D3 (25 1,000 unit PO AC-LUNCH 06/28/18 09/26/18 History Mcg = 1000 Iu)] Lisinopril-Hctz 20-25 mg 1 tab PO DAILY 06/28/18 09/26/18 History [Zestoretic 20-25] Ondansetron HCl [Zofran] 4 mg PO BID PRN 06/28/18 09/26/18 History hydrALAZINE HCL [Apresoline] 50 mg PO BID 06/28/18 09/26/18 History Furosemide [Lasix] 20 mg PO Q48H #0 07/01/18 09/26/18 Rx Potassium Chloride [Klor-Con 10] 10 meq PO Q48H #0 07/01/18 09/26/18 Rx Iron 28mg 28 mg PO DAILY 09/26/18 09/26/18 History Omeprazole Magnesium [PriLOSEC OTC] 20 mg PO DAILY 09/26/18 09/26/18 History Allergies Allergy/AdvReac Type Severity Reaction Status Date / Time No Known Allergies Allergy Verified 09/26/18 17:15 Physical Exam Vitals: Vital Signs Temp Pulse Pulse Resp BP BP Pulse Ox 09/27/18 03:14 98.0 F 79 14 125/65 93 L 09/26/18 23:12 98.3 F 85 16 138/73 91 L 09/26/18 21:48 82 18 102/61 97 09/26/18 19:45 80 17 101/66 97 09/26/18 16:41 97.8 F 85 16 104/68 95 Intake and Output 09/26/18 09/27/18 09/27/18 22:59 06:59 14:59 Other: Voiding Method Toilet Bedside Commode # Voids 0 Weight 62.596 kg Gen: This is an 83-year-old female. She is resting in bed and noted to be in some distress as she is requesting that the NG tube be removed. HEENT: Head is atraumatic, normocephalic. Pupils equal, round. Sclerae is anicteric. NG tube in place with small amount of yellow fluid return. NECK: Supple. No JVD. No lymphadenopathy. No thyromegaly. LUNGS: Clear to auscultation. No wheezes or rhonchi. No intercostal retractions. HEART: Regular rate and rhythm. No murmur. ABDOMEN: Soft. Bowel sounds are present. No masses. Upper abdominal tenderness. EXTREMITIES: No pedal edema. No calf tenderness. Dorsalis pedis +2 bilaterally. NEUROLOGICAL: Patient is awake, alert and oriented x3. Cranial nerves 2 through 12 are grossly intact. Results CBC & Chem 7: 09/26/18 17:18 09/27/18 07:50 Labs: Abnormal Lab Results - Last 24 Hours (Table) 09/26/18 09/26/18 09/26/18 Range/Units 02:55 17:18 17:18 RDW 16.3 H (11.5-15.5) % BUN 41 H (7-17) mg/dL Creatinine 1.57 H (0.52-1.04) mg/dL Glucose 125 H (74-99) mg/dL Urine Protein Trace H (Negative) Ur Leukocyte Esterase Small H (Negative) Urine Bacteria Rare H (None) /hpf Hyaline Casts 8 H (0-2) /lpf Urine Mucus Rare H (None) /hpf Thrombosis Risk Factor Assmnt - DVT/VTE Prophylaxis DVT/VTE Prophylaxis: Pharmacologic Prophylaxis ordered - Choose All That Apply Any of the Below Risk Factors Present?: No Other Risk Factors: Yes Each Risk Factor Represents 3 Points: Age 75 years or older Other congenital or acquired thrombophilia - If yes, enter type in comment: No Thrombosis Risk Factor Assessment Total Risk Factor Score: 3 Thrombosis Risk Factor Assessment Level: Moderate Risk Assessment and Plan Plan: 1. Acute kidney injury secondary to vomiting and diarrhea. Continue IV fluids at 75 mL per hour. Avoid nephrotoxic agents. Lasix and potassium on hold. Recheck basic metabolic panel in the morning. 2. Ileus versus colonic obstruction. NG tube will be removed as requested by patient as she is unable to tolerate. Consult with general surgery. Patient is currently nothing by mouth. Obtain stool specimen for C. difficile toxin. 3. Hypertension. Continue hydralazine 50 mg twice daily and Zestoretic on hold. 4. Gastroesophageal reflux disease. Protonix 40 mg IV twice daily. 5. Rectocele, was previously worked out by physician in [place]. 6. DVT prophylaxis. Heparin subcu. Patient will be admitted to the hospital for a minimum of 2 night stay. Discharge plan: To be determined Impression and plan of care have been directed as dictated by the signing physician. Radha Edwards nurse practitioner acting as scribe for signing physician.
[2018-09-27] MEDS: HEPARIN SODIUM,PORCINE 5,000 UNIT/ML 1 ML VIAL SQ SCH (20:54)
[2018-09-27] MEDS: SODIUM CHLORIDE 0.9% 1,000 ML IV SCH (20:54)
[2018-09-28] MEDS: SODIUM CHLORIDE 0.9% 1,000 ML IV SCH ×2 (02:44→12:21)
[2018-09-28 07:17] LABS: Calcium 8.8 mg/dL (8.4-10.2); Potassium 3.4 mmol/L (3.5-5.1)
[2018-09-28] MEDS: PANTOPRAZOLE 40 MG/10 ML VIAL IVP SCH ×2 (07:57→20:37)
[2018-09-28] MEDS: hydrALAZINE HCL 50 MG TAB PO SCH ×2 (07:58→20:37)
[2018-09-28] MEDS: HEPARIN SODIUM,PORCINE 5,000 UNIT/ML 1 ML VIAL SQ SCH ×2 (07:58→20:37)
[2018-09-28] MEDS: FERROUS SULFATE 325 MG TAB PO SCH (07:58)
--- NOTE | 2018-09-28 09:37 | P.GSCN ---
History of Present Illness Consult date: 09/28/18 Reason for Consult: Bowel obstruction History of present illness: The patient is a 83-year-old female well known to me. I did an outpatient co lonoscopy showing abnormal area in the sigmoid colon. I was unable to complete the colonoscopy due to a large floppy colon. She did have a barium enema performed which did reveal the sigmoid colon stricture. She was initially scheduled for surgery later this month. On Friday she had a small amount of barbecue ribs and then began to have vomiting. She vomited Friday and Friday. She was having diarrhea. She came into the emergency department and was admitted. She is currently nothing by mouth and no longer vomiting. Continues to have some loose stools. Minimal pain Past Medical History Past Medical History: GERD/Reflux, Hypertension, Osteoarthritis (OA) Additional Past Medical History / Comment(s): Rectocele, hepatitis c (in remission now), History of Any Multi-Drug Resistant Organisms: None Reported Past Surgical History: Cholecystectomy, Hysterectomy Additional Past Surgical History / Comment(s): LEFT KNEE, on water pill (lasix) for feet swelling (denies CHF), Past Psychological History: Depression Smoking Status: Former smoker Past Alcohol Use History: None Reported Additional Past Alcohol Use History / Comment(s): The patient was a remote smoker and quit at age 29. No marijuana or illicit drug use or alcohol use. Patient lives at home with her stepson. They do travel yearly to [place] and back. Past Drug Use History: None Reported - Past Family History Father Additional Family Medical History / Comment(s): Patient's father in his 70s who with history of diabetes and coronary artery disease. Mother Additional Family Medical History / Comment(s): Her mother in her 70s from unknown cause. Brother(s) Additional Family Medical History / Comment(s): Patient has 4 brothers and 3 have and all brothers have had diabetes and coronary artery disease. Sister(s) Additional Family Medical History / Comment(s): Patient has 3 sisters that have all . One from CVA. 2 sisters with coronary artery disease and diabetes. Patient has one son known to have diabetes. Medications and Allergies Home Medications Medication Instructions Recorded Confirmed Type Calcium Carbonate [Calcium] 600 mg PO AC-LUNCH 06/28/16 09/26/18 History Multivitamins, Thera [Multivitamin 1 tab PO AC-LUNCH 06/28/16 09/26/18 History (formulary)] Red Yeast Rice 600 mg PO DAILY 06/28/16 09/26/18 History Cholecalciferol [Vitamin D3 (25 1,000 unit PO AC-LUNCH 06/28/18 09/26/18 History Mcg = 1000 Iu)] Lisinopril-Hctz 20-25 mg 1 tab PO DAILY 06/28/18 09/26/18 History [Zestoretic 20-25] Ondansetron HCl [Zofran] 4 mg PO BID PRN 06/28/18 09/26/18 History hydrALAZINE HCL [Apresoline] 50 mg PO BID 06/28/18 09/26/18 History Furosemide [Lasix] 20 mg PO Q48H #0 07/01/18 09/26/18 Rx Potassium Chloride [Klor-Con 10] 10 meq PO Q48H #0 07/01/18 09/26/18 Rx Iron 28mg 28 mg PO DAILY 09/26/18 09/26/18 History Omeprazole Magnesium [PriLOSEC OTC] 20 mg PO DAILY 09/26/18 09/26/18 History Allergies Allergy/AdvReac Type Severity Reaction Status Date / Time No Known Allergies Allergy Verified 09/26/18 17:15 Surgical - Exam Osteopathic Statement: *. No significant issues noted on an osteopathic structural exam other than those noted in the History and Physical/Consult. Vital Signs Temp Pulse Resp BP Pulse Ox 97.8 F 85 16 104/68 95 09/26/18 16:41 09/26/18 16:41 09/26/18 16:41 09/26/18 16:41 09/26/18 16:41 - General well developed, well nourished, no distress - Eyes normal ocular movement - ENT decreased hearing - Respiratory normal respiratory effort, clear to auscultation - Cardiovascular Rhythm: regular - Abdomen Abdomen: no tender, bowel sounds, no guarding, no rigid, no rebound, distended (Tympanitic) Results - Labs 09/26/18 17:18 09/28/18 06:45 Abnormal Lab Results - Last 24 Hours (Table) 09/28/18 Range/Units 06:45 Potassium 3.4 L (3.5-5.1) mmol/L BUN 27 H (7-17) mg/dL Creatinine 1.22 H (0.52-1.04) mg/dL Glucose 65 L (74-99) mg/dL Diabetes panel 09/28/18 Range/Units 06:45 Sodium 140 (137-145) mmol/L Potassium 3.4 L (3.5-5.1) mmol/L Chloride 107 (98-107) mmol/L Carbon Dioxide 23 (22-30) mmol/L BUN 27 H (7-17) mg/dL Creatinine 1.22 H (0.52-1.04) mg/dL Glucose 65 L (74-99) mg/dL Calcium 8.8 (8.4-10.2) mg/dL Calcium panel 09/28/18 Range/Units 06:45 Calcium 8.8 (8.4-10.2) mg/dL Pituitary panel 09/28/18 Range/Units 06:45 Sodium 140 (137-145) mmol/L Potassium 3.4 L (3.5-5.1) mmol/L Chloride 107 (98-107) mmol/L Carbon Dioxide 23 (22-30) mmol/L BUN 27 H (7-17) mg/dL Creatinine 1.22 H (0.52-1.04) mg/dL Glucose 65 L (74-99) mg/dL Calcium 8.8 (8.4-10.2) mg/dL Adrenal panel 09/28/18 Range/Units 06:45 Sodium 140 (137-145) mmol/L Potassium 3.4 L (3.5-5.1) mmol/L Chloride 107 (98-107) mmol/L Carbon Dioxide 23 (22-30) mmol/L BUN 27 H (7-17) mg/dL Creatinine 1.22 H (0.52-1.04) mg/dL Glucose 65 L (74-99) mg/dL Calcium 8.8 (8.4-10.2) mg/dL - Imaging Abdominal x-ray: report reviewed, image reviewed Assessment and Plan (1) Stricture of sigmoid colon Current Visit: Yes Status: Acute Code(s): K56.699 - OTHER INTESTNL OBST UNSP TO PARTIAL VERSUS COMPLETE OBST SNOMED Code(s): 2834110 (2) Colonic obstruction Current Visit: Yes Status: Acute Code(s): K56.609 - UNSP INTESTNL OBST, UNSP TO PARTIAL VERSUS COMPLETE OBST SNOMED Code(s): 07741868 Plan: Surgery had our treatment plan for the patient. Unfortunately she became symptomatic therefore she will need to have a sigmoid resection performed. We'll give her oral antibiotics and some enemas as a bowel prep. I don't see a lot of stool in the proximal colon. Hopefully we can do a primary anastomosis. If necessary however, a temporary diverting ostomy will be performed. Initial plan was to do this robotically however at present she is to distended so that cannot be safely performed. Orders are written. The procedure, risks, complications were discussed. Questions were encouraged and answered.
[2018-09-28] MEDS: MULTIVITAMINS, THERA 1 EACH TAB PO SCH (12:21)
--- NOTE | 2018-09-28 15:39 | P.PN ---
Subjective Progress Note Date: 09/28/18 This is an 83-year-old female patient of Dr. Castillo with past medical history of hypertension, gastroesophageal reflux disease, rectocele. Patient was recently hospitalized in June 2018 and son gave this history of ongoing problems with rectocele. They were recently traveling and patient was admitted to [facility] in [place] and was treated that time for colitis with 2 antibiotics but then realized it was not colitis. She has since returned home and has [facility] has been subsequently referred to a surgeon in [place] of rectocele surgery. The patient was admitted in June for acute kidney injury due to vomiting and diarrhea, hypertension, rectocele and GERD. She was discharged home with follow-up with Dr. Castillo and has subsequently seen by Dr. Manzo and underwent colonoscopy about 2 and half weeks ago which patient states she had a colon blockage in the upper part of the colon and could not get through. Patient complains of diarrhea and vomiting that started on Friday and got worse yesterday. She denies having any chest pain or shortness of breath. She denies any fever or chills. Today she states her abdomen is not bad. She did have a diarrhea stool today at around 10 AM that was non-bloody. KUB revealed persistent distal colonic obstruction likely improved from September 11. Patient underwent a barium enema study on September 01 as an outpatient which revealed severely distended transverse colon measuring up to 9.4 [address] which [address] the patient risk for perforation. Sigmoid diverticulosis with a 5 cm long tight stricture at the level of the mid sigmoid. Rectal contrast administration became painful for the patient due to the degree of rectal distention. Contrast eventually traverses the stricture but the exam is stopped before complete filling of the ascending colon and cecum due to patient pain. The stricture could be secondary to chronic diverticulitis or underlying constricting neoplasm. Chest x-ray done for NG tube placed that revealed the tube was not well characterized and recommended advancing. Patient was found to be afebrile, blood pressure 104/68, heart rate 85, pulse ox 95%. White count was normal at 6.6, hemoglobin 11.8. Electrolytes within normal limits, BUN 41 creatinine 1.57, blood sugar 125. NG tube was placed in the emergency center and patient was admitted to the [facility] floor and consult has been added for general surgery. Repeat chest x-ray reveals continuing dilatation of the colon, bibasilar atelectasis. Abdominal x-rays reveal continuing colonic ileus versus obstruction. 09/28 patient examined bedside denies any nausea but does endorses abdominal pain and discomfort. She is currently nothing by mouth for possible surgery tomorrow. Vitals are stable with a temperature of 98, pulse rate 72 and respiratory rate 16 blood pressure 120/69 saturating well on room air. Creatini ne 1.2) patient's baseline of 0.89-1 continue IV fluids. Small sips of water allowed with medication. Objective - Vital Signs Vital signs: Vital Signs Temp 97.8 F 09/28/18 15:00 Pulse 86 09/28/18 15:00 Resp 16 09/28/18 15:00 BP 120/69 09/28/18 15:00 Pulse Ox 94 L 09/28/18 15:00 Intake & Output 09/27/18 09/28/18 09/28/18 18:59 06:59 18:59 Intake Total 525 Balance 525 Weight 62.596 kg Intake: Intake, IV Titration 525 Amount Sodium Chloride 0.9% 1, 525 000 ml @ 75 mls/hr IV . [id number] [facility] Rx#:[id number] Other: Voiding Method Toilet Toilet Bedside Commode Bedside Commode # Voids 0 3 # Bowel Movements 0 2 - Exam ROS Constitutional: Denies chills, Denies fever, endorses lethargy, endorses malaise, Denies poor appetite, endorses weakness, Denies weight loss Eyes: denies decreased vision, denies diplopia, denies discharge, denies pain Ears: deny: decreased hearing Ears, nose, mouth and throat: Denies dental pain, Denies headache, Denies nasal discharge, Denies nose pain Cardiovascular: Denies chest pain, Denies decreased exercise tolerance, Denies edema, Denies high blood pressure, Denies irregular heart beat, Denies palpitations, Denies paroxysmal nocturnal dyspnea, Denies rapid heart beat, Denies shortness of breath Respiratory: Denies congestion, Denies cough, Denies cough with sputum, Denies dyspnea, Denies home oxygen, Denies wheezing Gastrointestinal: Endorses abdominal pain, endorses diarrhea, Denies coffee ground emesis, Denies early satiety, Denies excessive gas, Denies heartburn, Denies hematemesis, Denies hematochezia, Denies loss of appetite, Denies nausea, Denies vomiting Genitourinary: Denies dysuria, Denies flank pain, Denies kidney stones, Denies menorrhagia, Denies urgency, Denies urinary frequency Musculoskeletal: Denies gait dysfunction, Denies limitation of motion, Denies morning stiffness, Denies muscle cramps Integumentary: Denies rash, Denies wounds, Denies brittle nails, Denies change in hair/nails, Denies darkening of skin Neurological: Denies balance difficulties, Denies change in speech, Denies double vision, Denies gait dysfunction, Denies loss of vision, Denies motor disturbance, Denies numbness, Denies paralysis, Denies paresthesias, Denies seizures - Constitutional General appearance: cooperative, no acute distress, dry lips - EENT Eyes: anicteric sclerae, PERRLA, normal appearance ENT: hearing grossly normal - Neck Neck: no lymphadenopathy, normal ROM, no other, no rigidity, no stridor, no thyromegaly - Respiratory Respiratory: bilateral: CTA, negative: diminished, dullness, rales, rhonchi - Cardiovascular Rhythm: regular Heart sounds: normal: S1, S2 Abnormal Heart Sounds: no systolic murmur, no diastolic murmur, no rub, no S3 Gallop, no S4 Gallop, no click, no other - Gastrointestinal General gastrointestinal: normal bowel sounds, soft and diffusely tender - Integumentary Integumentary: no rash - Neurologic Neurologic: CNII-XII intact - Musculoskeletal Musculoskeletal: gait normal, strength equal bilaterally - Psychiatric Psychiatric: A&O x's 3, appropriate affect - Labs CBC & Chem 7: 09/26/18 17:18 09/28/18 06:45 Labs: Abnormal Lab Results - Last 24 Hours (Table) 09/28/18 Range/Units 06:45 Potassium 3.4 L (3.5-5.1) mmol/L BUN 27 H (7-17) mg/dL Creatinine 1.22 H (0.52-1.04) mg/dL Glucose 65 L (74-99) mg/dL Assessment and Plan Plan: 1. Acute kidney injury secondary to vomiting and diarrhea. Continue IV fluids at 75 mL per hour. Avoid nephrotoxic agents. Lasix and potassium on hold. Recheck basic metabolic panel in the morning. Creatinine improving with hydration 2. Ileus versus colonic obstruction with history of stricture of the sigmoid colon on colonoscopy. Remove NG tube yesterday on request of patient. Patient is nothing by mouth for possible surgery tomorrow. Obtain stool specimen for C. difficile toxin. Flagyl initiated at 500 4 times a day 3. Hypertension. Continue hydralazine 50 mg twice daily and Zestoretic on d. 4. Gastroesophageal reflux disease. Protonix 40 mg IV twice daily. 5. Rectocele, was previously worked out by physician in [place]. 6. DVT prophylaxis. Heparin subcu. Discharge plan: To be determined
[2018-09-28] MEDS: ERYTHROMYCIN 250 MG TAB PO SCH (20:37)
[2018-09-28] MEDS: metroNIDAZOLE 500 MG TAB PO SCH (20:37)
[2018-09-29] MEDS: ERYTHROMYCIN 250 MG TAB PO SCH ×2 (00:04→05:59)
[2018-09-29] MEDS: SODIUM CHLORIDE 0.9% 1,000 ML IV SCH ×3 (05:59→23:01)
[2018-09-29] MEDS: metroNIDAZOLE 500 MG TAB PO SCH ×2 (08:22→14:00)
[2018-09-29] MEDS: FERROUS SULFATE 325 MG TAB PO SCH (08:22)
[2018-09-29] MEDS: hydrALAZINE HCL 50 MG TAB PO SCH ×2 (08:22→20:47)
[2018-09-29] MEDS: PANTOPRAZOLE 40 MG/10 ML VIAL IVP SCH ×2 (08:22→20:58)
[2018-09-29] MEDS: HEPARIN SODIUM,PORCINE 5,000 UNIT/ML 1 ML VIAL SQ SCH ×3 (08:26→23:49)
[2018-09-29] MEDS: ONDANSETRON 4 MG/2 ML VIAL IVP PRN (09:11)
[2018-09-29] MEDS: MULTIVITAMINS, THERA 1 EACH TAB PO SCH (12:02)
[2018-09-29] MEDS ORDERED: MIDAZOLAM (PF) 2 MG/2 ML VIAL IVP ONE (12:29)
[2018-09-29] MEDS ORDERED: IV FLUID CONTINUATION 800 ML IV ONE (12:38)
[2018-09-29] MEDS ORDERED: HEPARIN SODIUM,PORCINE 5,000 UNIT/ML 1 ML VIAL SQ ONE (12:54)
[2018-09-29] MEDS ORDERED: NEOSTIGMINE 1 MG/ML 10 ML VIAL ONE (12:57)
[2018-09-29] MEDS ORDERED: ePHEDrine SULFATE/0.9% NACL/PF 50 MG/5 ML SYRINGE IV ONE (12:57)
[2018-09-29] MEDS ORDERED: fentaNYL (PF) 50 MCG/ML 2 ML AMP ONE (12:57)
[2018-09-29] MEDS ORDERED: ROCURONIUM BROMIDE 10 MG/ML 10 ML VIAL IV ONE (12:57)
[2018-09-29] MEDS ORDERED: PROPOFOL 10 MG/ML 20 ML VIAL IV ONE (12:57)
[2018-09-29] MEDS ORDERED: PHENYLEPHRINE-0.9% NACL SYG 1 MG/10 ML SYRINGE ONE (12:57)
[2018-09-29] MEDS ORDERED: LIDOCAINE 1% INJ 10MG/ML (20 ML MDV) ONE (12:57)
[2018-09-29] MEDS ORDERED: GLYCOPYRROLATE 0.2 MG/ML 2 ML VIAL ONE (12:57)
[2018-09-29] MEDS ORDERED: SUCCINYLCHOLINE CHLORIDE 100 MG/5 ML SYR IV ONE (12:57)
[2018-09-29] MEDS ORDERED: PIPERACILLIN-TAZOBACTAM 3.375 GM in SODIUM CHLORIDE 0.9% 100 ML IVPB STA (13:02)
[2018-09-29] MEDS ORDERED: ROPIVACAINE 250 MG, HYDROMORPHONE (PF) 5 MG in SODIUM CHLORIDE 0.9% 200 ML EPIDURAL PRN (14:03)
[2018-09-29] MEDS ORDERED: NALOXONE 0.4 MG/ML 1 ML VIAL IV PRN (14:03)
[2018-09-29] MEDS ORDERED: LACTATED RINGERS 1,000 ML IV ONE ×4 (14:36→18:32)
--- NOTE | 2018-09-29 14:59 | P.PN ---
Subjective Progress Note Date: 09/29/18 This is an 83-year-old female patient of Dr. Castillo with past medical history of hypertension, gastroesophageal reflux disease, rectocele. Patient was recently hospitalized in June 2018 and son gave this history of ongoing problems with rectocele. They were recently traveling and patient was admitted to [facility] in [place] and was treated that time for colitis with 2 antibiotics but then realized it was not colitis. She has since returned home and [facility] has been subsequently referred to a surgeon in [place] of rectocele surgery. The patient was admitted in June for acute kidney injury due to vomiting and diarrhea, hypertension, rectocele and GERD. She was discharged home with follow-up with Dr. Castillo and has subsequently seen by Dr. Manzo and underwent colonoscopy about 2 and half weeks ago which patient states she had a colon blockage in the upper part of the colon and could not get through. Patient complains of diarrhea and vomiting that started on Friday and got worse yesterday. She denies having any chest pain or shortness of breath. She denies any fever or chills. Today she states her abdomen is not bad. She did have a diarrhea stool today at around 10 AM that was non-bloody. KUB revealed persistent distal colonic obstruction likely improved from September 11. Patient underwent a barium enema study on September 01 as an outpatient which revealed severely distended transverse colon measuring up to 9.4 [address] the patient risk for perforation. Sigmoid diverticulosis with a 5 cm long tight stricture at the level of the mid sigmoid. Rectal contrast administration became painful for the patient due to the degree of rectal distention. Contrast eventually traverses the stricture but the exam is stopped before complete filling of the ascending colon and cecum due to patient pain. The stricture could be secondary to chronic diverticulitis or underlying constricting neoplasm. Chest x-ray done for NG tube placed that revealed the tube was not well characterized and recommended advancing. Patient was found to be afebrile, blood pressure 104/68, heart rate 85, pulse ox 95%. White count was normal at 6.6, hemoglobin 11.8. Electrolytes within normal limits, BUN 41 creatinine 1.57, blood sugar 125. NG tube was placed in the emergency center and patient was admitted to the MedSur floor and consult has been added for general surgery. Repeat chest x-ray reveals continuing dilatation of the colon, bibasilar atelectasis. Abdominal x-rays reveal continuing colonic ileus versus obstruction. 09/28 patient examined bedside denies any nausea but does endorses abdominal pain and discomfort. She is currently nothing by mouth for possible surgery tomorrow. Vitals are stable with a temperature of 98, pulse rate 72 and respiratory rate 16 blood pressure 120/69 saturating well on room air. Creatini ne 1.2) patient's baseline of 0.89-1 continue IV fluids. Small sips of water allowed with medication. 09/29 Patient in surgery could not be evaluated on rounds today Objective - Vital Signs Vital signs: Vital Signs Temp 99.0 F 09/29/18 12:01 Pulse 66 09/29/18 12:42 Resp 16 09/29/18 12:42 BP 114/59 09/29/18 12:42 Pulse Ox 99 09/29/18 12:42 Intake & Output 09/28/18 09/29/18 09/29/18 18:59 06:59 18:59 Intake Total 0 800 Balance 0 800 Intake: IV 800 Oral 0 Other: # Voids 3 2 2 # Bowel Movements 2 2 1 - Exam Could not be obtained - Labs CBC & Chem 7: 09/26/18 17:18 09/28/18 06:45 Assessment and Plan Plan: 1. Acute kidney injury secondary to vomiting and diarrhea. Continue IV fluids at 75 mL per hour. Avoid nephrotoxic agents. Lasix and potassium on hold. Recheck basic metabolic panel in the morning. Creatinine improving with hydrat ion 2. Ileus versus colonic obstruction with history of stricture of the sigmoid colon on colonoscopy. Plan for surgery today Obtain stool specimen for C. difficile toxin. Flagyl continued at 500 4 times a day 3. Hypertension. Continue hydralazine 50 mg twice daily and Zestoretic on hold. 4. Gastroesophageal reflux disease. Protonix 40 mg IV twice daily. 5. Rectocele, was previously worked out by physician in [place]. 6. DVT prophylaxis. Heparin subcu. Discharge plan: To be determined
--- NOTE | 2018-09-29 15:38 | P.OP ---
Date of Procedure: 09/29/18 Preoperative Diagnosis: Sigmoid colon obstruction Postoperative Diagnosis: Sigmoid colon obstruction Procedure(s) Performed: Exploratory laparotomy with sigmoid colon resection and mobilization of the splenic flexure Anesthesia: MARITA Surgeon: Alicia Manzo Estimated Blood Loss (ml): 200 Pathology: other (Sigmoid colon) Condition: stable Disposition: PACU Indications for Procedure: The patient had a stricture that in been found in worked up as an outpatient. She did initially been scheduled for surgery next week. She came in over the weekend with a symptomatic obstruction. Description of Procedure: The patient's taken the operative suite where she is prepped and draped in the usual sterile manner under general endotracheal anesthetic. The abdomen is entered through a midline incision. There are several adhesive bands which are divided. The small bowel was run and unremarkable. The colon from the cecum to the sigmoid colon was markedly dilated. This appeared to be a chronic obstructive dilation with an acute component. There was a very hard area of the sigmoid colon consistent with her obstruction. A self-retaining retractor was placed. The area of the colon or the obstruction was identified was mobilized off the lateral abdominal wall. It was able to be reflected medially. The colon was immobilized along the white line of Toldt. The dissection was carried down inferiorly. A soft suction was identified. The opening was made in the mesentery and a TA stapler was placed and fired. The proximal bowel was then retracted anteriorly and the mesentery the bowel was taken down with the LigaSure. The sigmoidal vessels were clamped, cut, tied with 0 Vicryl sutures. The bowel was mobilized and a site explained was identified for resection. A MICHELLE stapler was placed and fired. The specimen was passed off. Dissection was followed up along the descending colon and the bowel was very adherent in the splenic flexure so that was mobilized with either cautery or the LigaSure. The bowel was then able to be brought down towards the pelvis. The distal segment of the bowel was dissected free. It was fairly adherent anteriorly to the anterior wall of the vagina. Once it was adequately mobilized, the descending colon was tacked to the distal segment using 3-0 Vicryl Lembert sutures. A small enterotomy was made in the proximal limb and a pool suction was placed to decompress all the trapped air. The pull suction was passed off. A small enterotomy was made in the distal segment. A MICHELLE stapler was placed through these 2 openings and was fired. The anastomosis was noted to be hemostatic. The remaining enterotomy was closed in a 2 layered manner using 3-0 Vicryl. Currently gloves were changed. The abdomen and pelvis were irrigated and aspirated. A small stab incision was made in the right lower abdomen and a channel drain was allowed to looped along the paracolic gutter and into the pelvis. All bowel was allowed to lay in gentle loops and covered with the omentum. The fashion peritoneum were closed with #1 PDS. The skin was loosely approximated with john. Aquacel Ag earl were placed in between some of the john. A dressing was applied. She tolerated the procedure without difficulty and was taken to recovery room in satisfactory condition. According to or personnel, all counts WERE correct.
--- NOTE | 2018-09-29 16:33 | XR ---
EXAMINATION: XR chest 1V DATE AND TIME: 09/29/2018 4:20 PM CLINICAL INDICATION: PHH; re intubation TECHNIQUE: AP portable semiupright COMPARISON: 09/27/2018 at 12:44 PM FINDINGS: Endotracheal tube tip superimposed over the mid trachea at the level of the aortic knob. EKG leads. Markedly elevated right hemidiaphragm and moderately elevated left hemidiaphragm redemonstrated. The bibasilar partial airlessness, greater on the right, is unchanged. Likely atelectasis, concurrent bro nchopneumonia can only be excluded clinically. The upper and mid lungs are clear bilaterally. No pneumothorax. No evidence of pneumoperitoneum. Cardiac silhouette is borderline enlarged. Gas-dilated hepatic flexure redemonstrated, similar to the prior study. IMPRESSION: Stable CXR appearance; elevated hemidiaphragms with partial airlessness of the lung bases, greater on the right.
[2018-09-29 16:41] LABS: Glucose,Whole Blood 92 mg/dL (75-99)
[2018-09-29 17:29] LABS: ABG Base Excess -9.2 mmol/L; ABG HCO3 18 mmol/L (21-25); ABG PCO2 44 mmHg (35-45); ABG PH 7.23 (7.35-7.45); ABG PO2 183 mmHg (83-108); ABG TCO2 20 mmol/L (19-24); Allen Test Performed? Yes
[2018-09-29] MEDS: METOCLOPRAMIDE 5 MG/ML 2 ML VIAL IVP SCH ×2 (19:06→23:49)
[2018-09-29 19:14] LABS: Glucose,Whole Blood 135 mg/dL (75-99)
[2018-09-29 19:41] LABS: Albumin 2.3 g/dL (3.5-5.0); INR 1.2 (<1.2); Partial Thromboplastin Time 22.5 sec (22.0-30.0); Potassium 4.8 mmol/L (3.5-5.1); Prothrombin Time 12.4 sec (9.0-12.0); Total Bilirubin 0.6 mg/dL (0.2-1.3); Total Protein 4.3 g/dL (6.3-8.2)
[2018-09-29 19:51] LABS: HCT 32.1 % (34.0-46.0); Hypochromasia Marked; MCH 27.7 pg (25.0-35.0); MCHC 30.4 g/dL (31.0-37.0); Mean Platelet Volume 7.6; Platelet Count 227 k/uL (150-450); RBC 3.53 m/uL (3.80-5.40); RDW 15.4 % (11.5-15.5); WBC 10.2 k/uL (3.8-10.6)
[2018-09-29 19:55] LABS: HGB 9.8 gm/dL (11.4-16.0)
[2018-09-29] MEDS: D5-0.45% NACL WITH KCL 20MEQ/L 1,000 ML IV SCH (20:44)
[2018-09-29] MEDS ORDERED: PROPOFOL 1,000 MG in EMPTY BAG 1 BAG IV SCH (20:45)
[2018-09-29] MEDS: NOREPINEPHRINE 4 MG in SODIUM CHLORIDE 0.9% 250 ML IV SCH (21:03)
[2018-09-30 04:10] LABS: Allen Test Performed? Yes
[2018-09-30 04:21] LABS: ABG Base Excess -7.2 mmol/L; ABG HCO3 18 mmol/L (21-25); ABG Oxygen Saturation 99.4 % (94-97); ABG PCO2 33 mmHg (35-45); ABG PH 7.35 (7.35-7.45); ABG PO2 159 mmHg (83-108); ABG TCO2 19 mmol/L (19-24)
[2018-09-30 05:16] LABS: Calcium 7.9 mg/dL (8.4-10.2); Potassium 5.2 mmol/L (3.5-5.1)
[2018-09-30 05:18] LABS: Anisocytosis Slight; Basophils # (A) 0.1 k/uL (0-0.2); Basophils % (A) 0 %; Eosinophils % (A) 0 %; HCT 31.2 % (34.0-46.0); HGB 9.9 gm/dL (11.4-16.0); Hypochromasia Slight; Lymphocytes % (A) 5 %; MCH 27.9 pg (25.0-35.0); MCHC 31.6 g/dL (31.0-37.0); MCV 88.2 fL (80.0-100.0); Mean Platelet Volume 7.5; Monocytes # (A) 0.5 k/uL (0-1.0); Monocytes % (A) 3 %; Neutrophils # (A) 16.4 k/uL (1.3-7.7); Neutrophils % (A) 91 %; Platelet Count 253 k/uL (150-450); RBC 3.54 m/uL (3.80-5.40); RDW 16.4 % (11.5-15.5)
[2018-09-30] MEDS: METOCLOPRAMIDE 5 MG/ML 2 ML VIAL IVP SCH ×4 (05:37→20:16)
[2018-09-30] MEDS: D5-0.45% NACL WITH KCL 20MEQ/L 1,000 ML IV SCH (06:37)
[2018-09-30] MEDS: SODIUM CHLORIDE 0.9% 1,000 ML IV SCH ×2 (06:38→16:16)
--- NOTE | 2018-09-30 08:19 | P.PN ---
Subjective Progress Note Date: 09/30/18 Principal diagnosis: S/P sigmoid resection The patient is POD #1 sigmoid resection for a large bowel obstruction due to a stricture. Initially she was extubated, but required reintubation in the recovery room. She's had some low urine outputs overnight and received fluid boluses. She is on a very low dose of propofol. Also low doses of epinephrine for her blood pressure. Objective - Vital Signs Vital signs: Vital Signs Temp 97.7 F 09/30/18 04:00 Pulse 56 L 09/30/18 07:00 Resp 16 09/30/18 07:00 BP 113/48 09/30/18 07:00 Pulse Ox 99 09/30/18 07:00 Intake & Output 09/29/18 09/30/18 09/30/18 18:59 06:59 18:59 Intake Total 3400 1122.760 100 Output Total 620 765 35 Balance 2780 357.760 65 Weight 63.5 kg Intake: IV 3400 935 100 D5-0.45% NaCl with KCl 850 20Meq/l 1,000 ml @ 85 mls /hr IV .[id number] [facility] Rx#: [id number] LR 85 Sodium Chloride 0.9% 1, 100 000 ml @ 100 mls/hr IV . Q10H [facility] Rx#:[id number] Intake, IV Titration 187.760 Amount Norepinephrine 4 mg In 177.556 Sodium Chloride 0.9% 250 ml @ 0.05 MCG/KG/MIN 11. 925 mls/hr IV .[id number] [facility] Rx#:[id number] Propofol 1,000 mg In 10.204 Empty Bag 1 bag @ Titrate IV .Q0M [facility] Rx#: [id number] Ropivacaine 250 mg 0 Hydromorphone (Pf) 5 mg In Sodium Chloride 0.9% 200 ml @ Per Protocol EPIDURAL .Q0M PRN Rx#: [id number] Output: Drainage 560 10 Abdomen 560 10 Urine 140 205 25 Estimated Blood Loss 480 Other: Voiding Method Indwelling Catheter # Voids 2 # Bowel Movements 1 - Constitutional Constitutional Comment(s): Sedated on the ventilator - Respiratory Respiratory: bilateral: CTA (Occasional rhonchi) - Cardiovascular Rhythm: regular - Gastrointestinal General gastrointestinal: Present: decreased bowel sounds, soft Localized gastrointestinal: surgical scar: diffuse (Dressing is intact clean and dry. The TARI is sanguinous) - Labs CBC & Chem 7: 09/30/18 04:42 09/30/18 04:42 Labs: Abnormal Lab Results - Last 24 Hours (Table) 09/29/18 09/29/18 09/29/18 Range/Units 17:25 18:55 18:55 WBC (3.8-10.6) k/uL RBC 3.53 L (3.80-5.40) m/uL Hgb 9.8 L D (11.4-16.0) gm/dL Hct 32.1 L (34.0-46.0) % MCHC 30.4 L (31.0-37.0) g/dL RDW (11.5-15.5) % Neutrophils # (1.3-7.7) k/uL PT 12.4 H (9.0-12.0) sec INR 1.2 H (<1.2) ABG pH 7.23 L (7.35-7.45) ABG pCO2 (35-45) mmHg ABG pO2 183 H (83-108) mmHg ABG HCO3 18 L (21-25) mmol/L ABG O2 Saturation 99.0 H (94-97) % Potassium (3.5-5.1) mmol/L Chloride (98-107) mmol/L Carbon Dioxide (22-30) mmol/L BUN (7-17) mg/dL Creatinine (0.52-1.04) mg/dL Glucose (74-99) mg/dL POC Glucose (mg/dL) (75-99) mg/dL Calcium (8.4-10.2) mg/dL Alkaline Phosphatase (38-126) U/L Total Protein (6.3-8.2) g/dL Albumin (3.5-5.0) g/dL 09/29/18 09/29/18 09/30/18 Range/Units 18:55 19:02 04:08 WBC (3.8-10.6) k/uL RBC (3.80-5.40) m/uL Hgb (11.4-16.0) gm/dL Hct (34.0-46.0) % MCHC (31.0-37.0) g/dL RDW (11.5-15.5) % Neutrophils # (1.3-7.7) k/uL PT (9.0-12.0) sec INR (<1.2) ABG pH (7.35-7.45) ABG pCO2 33 L (35-45) mmHg ABG pO2 159 H (83-108) mmHg ABG HCO3 18 L (21-25) mmol/L ABG O2 Saturation 99.4 H (94-97) % Potassium (3.5-5.1) mmol/L Chloride 110 H (98-107) mmol/L Carbon Dioxide 15 L (22-30) mmol/L BUN 20 H (7-17) mg/dL Creatinine (0.52-1.04) mg/dL Glucose 104 H (74-99) mg/dL POC Glucose (mg/dL) 135 H (75-99) mg/dL Calcium 8.0 L (8.4-10.2) mg/dL Alkaline Phosphatase 28 L (38-126) U/L Total Protein 4.3 L (6.3-8.2) g/dL Albumin 2.3 L (3.5-5.0) g/dL 09/30/18 09/30/18 Range/Units 04:42 04:42 WBC 18.0 H (3.8-10.6) k/uL RBC 3.54 L (3.80-5.40) m/uL Hgb 9.9 L (11.4-16.0) gm/dL Hct 31.2 L (34.0-46.0) % MCHC (31.0-37.0) g/dL RDW 16.4 H (11.5-15.5) % Neutrophils # 16.4 H (1.3-7.7) k/uL PT (9.0-12.0) sec INR (<1.2) ABG pH (7.35-7.45) ABG pCO2 (35-45) mmHg ABG pO2 (83-108) mmHg ABG HCO3 (21-25) mmol/L ABG O2 Saturation (94-97) % Potassium 5.2 H (3.5-5.1) mmol/L Chloride 108 H (98-107) mmol/L Carbon Dioxide 18 L (22-30) mmol/L BUN 20 H (7-17) mg/dL Creatinine 1.18 H (0.52-1.04) mg/dL Glucose 191 H (74-99) mg/dL POC Glucose (mg/dL) (75-99) mg/dL Calcium 7.9 L (8.4-10.2) mg/dL Alkaline Phosphatase (38-126) U/L Total Protein (6.3-8.2) g/dL Albumin (3.5-5.0) g/dL Assessment and Plan (1) Stricture of sigmoid colon Current Visit: Yes Status: Acute Code(s): K56.699 - OTHER INTESTNL OBST UNSP TO PARTIAL VERSUS COMPLETE OBST SNOMED Code(s): 3268382 (2) Colonic obstruction Current Visit: Yes Status: Acute Code(s): K56.609 - UNSP INTESTNL OBST, UNSP TO PARTIAL VERSUS COMPLETE OBST SNOMED Code(s): 14348548 Plan: The patient is being seen by pulmonary regarding the need for reintubation. Continue to monitor the drain and urine output. Her hemoglobin is drop slightly from preop. We'll continue to monitor that. Supportive care. Surgically stable
[2018-09-30] MEDS ORDERED: CHLORHEXIDINE GLUCONATE 15 ML CUP MUCOUS MEM SCH (09:00)
--- NOTE | 2018-09-30 09:25 | XR ---
EXAMINATION TYPE: XR chest 1V portable DATE OF EXAM: 09/30/2018 COMPARISON: 09/29/2018 HISTORY: Shortness of breath TECHNIQUE: Single frontal view of the chest is obtained. FINDINGS: Endotracheal tube is similar in position terminating at the aortic arch. Trace pleural eff usions again seen. Chronic right hemidiaphragm elevation is seen with catheter areas of platelike sub segmental atelectasis. Cardiomediastinal silhouette is partially obscured. Diffuse osseous lesion is seen. Lungs are hypoventilatory. IMPRESSION: Hypoventilatory lungs with bibasilar platelike atelectasis, trace pleural effusions, and stable endotracheal tube positioning.
[2018-09-30] MEDS: FERROUS SULFATE 325 MG TAB PO SCH (09:56)
[2018-09-30] MEDS: PANTOPRAZOLE 40 MG/10 ML VIAL IVP SCH ×2 (09:56→20:15)
[2018-09-30] MEDS: hydrALAZINE HCL 50 MG TAB PO SCH (09:56)
[2018-09-30] MEDS: HEPARIN SODIUM,PORCINE 5,000 UNIT/ML 1 ML VIAL SQ SCH ×2 (09:57→20:15)
[2018-09-30] MEDS ORDERED: SODIUM CHLORIDE 0.9% 1,000 ML IV ONE (11:01)
--- NOTE | 2018-09-30 12:01 | P.PN ---
Progress Note - Text Progress Note Date: 09/30/18 Pt remains intubated and sedated, but wakes to stimulus. Epidural @ 5 ml/hr. Norepinephrine @ 0.04 mcg/kg/min Epidural site clean and dry. A/P POD#1 s/p sigmoid resection - may titrate epidural for improved comfort once pt extubated and more awake
[2018-09-30] MEDS: MULTIVITAMINS, THERA 1 EACH TAB PO SCH (12:19)
[2018-09-30 13:50] LABS: ABG Base Excess -8.7 mmol/L; ABG HCO3 19 mmol/L (21-25); ABG Oxygen Saturation 98.8 % (94-97); ABG PCO2 46 mmHg (35-45); ABG PH 7.22 (7.35-7.45); ABG PO2 147 mmHg (83-108); ABG TCO2 20 mmol/L (19-24); Allen Test Performed? Yes
[2018-09-30] MEDS ORDERED: SODIUM BICARB 8.4% 50 ML SYR (1 MEQ/ML) IV STA (13:54)
--- NOTE | 2018-09-30 14:24 | P.PN ---
Subjective Progress Note Date: 09/30/18 This is an 83-year-old female patient of Dr. Castillo with past medical history of hypertension, gastroesophageal reflux disease, rectocele. Patient was recently hospitalized in June 2018 and son gave this history of ongoing problems with rectocele. They were recently traveling and patient was admitted to [facility] in [place] and was treated that time for colitis with 2 antibiotics but then realized it was not colitis. She has since returned home and has [facility] has been subsequently referred to a surgeon in [place] of rectocele surgery. The patient was admitted in June for acute kidney injury due to vomiting and diarrhea, hypertension, rectocele and GERD. She was discharged home with follow-up with Dr. Castillo and has subsequently seen by Dr. Manzo and underwent colonoscopy about 2 and half weeks ago which patient states she had a colon blockage in the upper part of the colon and could not get through. Patient complains of diarrhea and vomiting that started on Friday and got worse yesterday. She denies having any chest pain or shortness of breath. She denies any fever or chills. Today she states her abdomen is not bad. She did have a diarrhea stool today at around 10 AM that was non-bloody. KUB revealed persistent distal colonic obstruction likely improved from September 11. Patient underwent a barium enema study on September 01 as an outpatient which revealed severely distended transverse colon measuring up to 9.4 [address] which [address] the patient risk for perforation. Sigmoid diverticulosis with a 5 cm long tight stricture at the level of the mid sigmoid. Rectal contrast administration became painful for the patient due to the degree of rectal distention. Contrast eventually traverses the stricture but the exam is stopped before complete filling of the ascending colon and cecum due to patient pain. The stricture could be secondary to chronic diverticulitis or underlying constricting neoplasm. Chest x-ray done for NG tube placed that revealed the tube was not well characterized and recommended advancing. Patient was found to be afebrile, blood pressure 104/68, heart rate 85, pulse ox 95%. White count was normal at 6.6, hemoglobin 11.8. Electrolytes within normal limits, BUN 41 creatinine 1.57, blood sugar 125. NG tube was placed in the emergency center and patient was admitted to the MedSur floor and consult has been added for general surgery. Repeat chest x-ray reveals continuing dilatation of the colon, bibasilar atelectasis. Abdominal x-rays reveal continuing colonic ileus versus obstruction. 09/28 patient examined bedside denies any nausea but does endorses abdominal pain and discomfort. She is currently nothing by mouth for possible surgery tomorrow. Vitals are stable with a temperature of 98, pulse rate 72 and respiratory rate 16 blood pressure 120/69 saturating well on room air. Creatini ne 1.2) patient's baseline of 0.89-1 continue IV fluids. Small sips of water allowed with medication. 09/29 Patient in surgery could not be evaluated on rounds today 09/30 patient was seen and evaluated in ICU and is still intubated. Patient underwent sigmoid resection for large bowel obstruction on 09/29 but was reintubated after extubation in the recovery room. Patient had a low urine outputs and received fluid boluses blood pressure this morning is 113/48 on levo fed running at 3 mics per hour. Will give one bolus of 1 L of normal saline and additional bolus of 500 mL afterwards. Patient is responding appropriately and answering simple questions on propofol. Plan to extubate today. Objective - Vital Signs Vital signs: Vital Signs Temp 97.5 F L 09/30/18 12:00 Pulse 120 H 09/30/18 14:00 Resp 10 L 09/30/18 14:00 BP 103/61 09/30/18 14:00 Pulse Ox 97 09/30/18 14:00 Intake & Output 09/29/18 09/30/18 09/30/18 18:59 06:59 18:59 Intake Total 3400 2150.054 6981.484 Output Total 620 765 230 Balance 2780 928.552 3762.484 Weight 63.5 kg 63.5 kg Intake: IV 3400 935 1700 D5-0.45% NaCl with KCl 850 20Meq/l 1,000 ml @ 85 mls /hr IV .[id number] [facility] Rx#: [id number] LR 85 Sodium Chloride 0.9% 1, 700 000 ml @ 100 mls/hr IV . Q10H [facility] Rx#:[id number] Sodium Chloride 0.9% 1, 1000 000 ml @ 999 mls/hr IV . Q1H1M [facility] Rx#:[id number] Intake, IV Titration 187.760 140.484 Amount Norepinephrine 4 mg In 177.556 76.444 Sodium Chloride 0.9% 250 ml @ 0.05 MCG/KG/MIN 11. 925 mls/hr IV .[id number] [facility] Rx#:[id number] Propofol 1,000 mg In 10.204 64.04 Empty Bag 1 bag @ Titrate IV .Q0M [facility] Rx#: [id number] Ropivacaine 250 mg 0 Hydromorphone (Pf) 5 mg In Sodium Chloride 0.9% 200 ml @ Per Protocol EPIDURAL .Q0M PRN Rx#: [id number] Output: Drainage 560 110 Abdomen 560 110 Urine 140 205 120 Estimated Blood Loss 480 Other: Voiding Method Indwelling Catheter Indwelling Catheter # Voids 2 # Bowel Movements 1 - Exam Review of system Patient intubated could not be obtained - Constitutional General appearance: cooperative, no acute distress - EENT Eyes: anicteric sclerae, PERRLA, normal appearance ENT: hearing grossly normal intubated - Neck Neck: no lymphadenopathy, normal ROM - Respiratory Respiratory: bilateral: CTA, negative: diminished, dullness, rales, rhonchi - Cardiovascular Rhythm: regular Heart sounds: normal: S1, S2 Abnormal Heart Sounds: no systolic murmur, no diastolic murmur, no rub, no S3 Gallop, no S4 Gallop, no click, no other - Gastrointestinal General gastrointestinal: normal bowel sounds, soft tender on palpation TARI drain in place wound covered with dressings - Integumentary Integumentary: no rash - Neurologic Neurologic: CNII-XII intact - Musculoskeletal Musculoskeletal: strength equal bilaterally - Psychiatric Psychiatric: A&O x's 3, appropriate affect - Labs CBC & Chem 7: 09/30/18 04:42 09/30/18 04:42 Labs: Abnormal Lab Results - Last 24 Hours (Table) 09/29/18 09/29/18 09/29/18 Range/Units 17:25 18:55 18:55 WBC (3.8-10.6) k/uL RBC 3.53 L (3.80-5.40) m/uL Hgb 9.8 L D (11.4-16.0) gm/dL Hct 32.1 L (34.0-46.0) % MCHC 30.4 L (31.0-37.0) g/dL RDW (11.5-15.5) % Neutrophils # (1.3-7.7) k/uL PT 12.4 H (9.0-12.0) sec INR 1.2 H (<1.2) ABG pH 7.23 L (7.35-7.45) ABG pCO2 (35-45) mmHg ABG pO2 183 H (83-108) mmHg ABG HCO3 18 L (21-25) mmol/L ABG O2 Saturation 99.0 H (94-97) % Potassium (3.5-5.1) mmol/L Chloride (98-107) mmol/L Carbon Dioxide (22-30) mmol/L BUN (7-17) mg/dL Creatinine (0.52-1.04) mg/dL Glucose (74-99) mg/dL POC Glucose (mg/dL) (75-99) mg/dL Calcium (8.4-10.2) mg/dL Alkaline Phosphatase (38-126) U/L Total Protein (6.3-8.2) g/dL Albumin (3.5-5.0) g/dL 09/29/18 09/29/18 09/30/18 Range/Units 18:55 19:02 04:08 WBC (3.8-10.6) k/uL RBC (3.80-5.40) m/uL Hgb (11.4-16.0) gm/dL Hct (34.0-46.0) % MCHC (31.0-37.0) g/dL RDW (11.5-15.5) % Neutrophils # (1.3-7.7) k/uL PT (9.0-12.0) sec INR (<1.2) ABG pH (7.35-7.45) ABG pCO2 33 L (35-45) mmHg ABG pO2 159 H (83-108) mmHg ABG HCO3 18 L (21-25) mmol/L ABG O2 Saturation 99.4 H (94-97) % Potassium (3.5-5.1) mmol/L Chloride 110 H (98-107) mmol/L Carbon Dioxide 15 L (22-30) mmol/L BUN 20 H (7-17) mg/dL Creatinine (0.52-1.04) mg/dL Glucose 104 H (74-99) mg/dL POC Glucose (mg/dL) 135 H (75-99) mg/dL Calcium 8.0 L (8.4-10.2) mg/dL Alkaline Phosphatase 28 L (38-126) U/L Total Protein 4.3 L (6.3-8.2) g/dL Albumin 2.3 L (3.5-5.0) g/dL 09/30/18 09/30/18 09/30/18 Range/Units 04:42 04:42 13:48 WBC 18.0 H (3.8-10.6) k/uL RBC 3.54 L (3.80-5.40) m/uL Hgb 9.9 L (11.4-16.0) gm/dL Hct 31.2 L (34.0-46.0) % MCHC (31.0-37.0) g/dL RDW 16.4 H (11.5-15.5) % Neutrophils # 16.4 H (1.3-7.7) k/uL PT (9.0-12.0) sec INR (<1.2) ABG pH 7.22 L (7.35-7.45) ABG pCO2 46 H (35-45) mmHg ABG pO2 147 H (83-108) mmHg ABG HCO3 19 L (21-25) mmol/L ABG O2 Saturation 98.8 H (94-97) % Potassium 5.2 H (3.5-5.1) mmol/L Chloride 108 H (98-107) mmol/L Carbon Dioxide 18 L (22-30) mmol/L BUN 20 H (7-17) mg/dL Creatinine 1.18 H (0.52-1.04) mg/dL Glucose 191 H (74-99) mg/dL POC Glucose (mg/dL) (75-99) mg/dL Calcium 7.9 L (8.4-10.2) mg/dL Alkaline Phosphatase (38-126) U/L Total Protein (6.3-8.2) g/dL Albumin (3.5-5.0) g/dL Assessment and Plan Plan: 1. Acute kidney injury secondary to vomiting and diarrhea. Continue normal saline at 75 mL per hour and a bicarb drip. Avoid nephrotoxic agents. Lasix and potassium on hold. Recheck basic metabolic panel in the morning. Creatinine improving with hydration 2. Ileus versus colonic obstruction with history of stricture of the sigmoid colon on colonoscopy status post sigmoid resection and mobilization of the splenic flexure. Initiated on Zosyn 3. Hypotension. Blood pressure on the lower side we'll hold the Zestoretic and hydralazine continue levo fed 4. Gastroesophageal reflux disease. Protonix 40 mg IV twice daily. 5. Rectocele, was previously worked out by physician in [place]. 6. DVT prophylaxis. Heparin subcu. 7 acute respiratory failure likely secondary to medications. Plan for extubation today. Sodium bicarb drip initiated by Dr. French on the left side Discharge plan: To be determined
[2018-09-30] MEDS: DEXTROSE 5% IN WATER 1,000 ML with SODIUM BICARB (1 MEQ/ML) 150 ML IV SCH (14:42)
--- NOTE | 2018-09-30 14:45 | P.CNPUL ---
History of Present Illness Consult date: 09/29/18 (Late entry note) Reason for consult: hypoxemia, other Chief complaint: Respiratory failure, bowel obstruction History of present illness: This patient seen eval the [facility] recovery area she underwent exploratory laparotomy with sigmoid colon resection for sigmoid colon obstruction just due to stricture. Patient is on ventilator could not be weaned she is still somnolent and not arousable still alive under affect of anesthetic agent likely will be placed and kept in ICU on ventilator with full ventilator support with plan of screening for tomorrow and possible extubation Review of the medical records revealed that patient is an 83-year-old female patient of Dr. Castillo with past medical history of hypertension, gastroesophageal reflux disease, rectocele. Patient was recently hospitalized in June 2018 and son gave this history of ongoing problems with rectocele. They were recently traveling and patient was admitted to [facility] in [place] and was treated that time for colitis with 2 antibiotics but then realized it was not colitis. She has since returned home and has [facility] has been subsequently referred to a surgeon in [place] of rectocele surgery. The patient was admitted in June for acute kidney injury due to vomiting and diarrhea, hypertension, rectocele and GERD. She was discharged home with follow-up with Dr. Castillo and has subsequently seen by Dr. Manzo and underwent colonoscopy about 2 and half weeks ago which patient states she had a colon blockage in the upper part of the colon and could not get through. Patient complains of diarrhea and vomiting that started on 4 days ago and got worse aggressively on the day of admission. There is no history of chest pain or shortness of breath, fever or chills. Due to persistent problem associated abdominal discomfort and pain patient was taken to OR earlier today underwent resection as noted and appears to be not ready for weaning and extubation Review of Systems ROS unobtainable: due to endotracheal tube Past Medical History Past Medical History: GERD/Reflux, Hypertension, Osteoarthritis (OA) Additional Past Medical History / Comment(s): Rectocele, hepatitis c (in r emission now), History of Any Multi-Drug Resistant Organisms: None Reported Past Surgical History: Cholecystectomy, Hysterectomy Additional Past Surgical History / Comment(s): LEFT KNEE, on water pill (lasix) for feet swelling (denies CHF), Past Psychological History: Depression Smoking Status: Former smoker Past Alcohol Use History: None Reported Additional Past Alcohol Use History / Comment(s): The patient was a remote smoker and quit at age 29. No marijuana or illicit drug use or alcohol use. Patient lives at home with her wilneron. They do travel yearly to [place] and back. Past Drug Use History: None Reported - Past Family History Father Additional Family Medical History / Comment(s): Patient's father in his 70s who with history of diabetes and coronary artery disease. Mother Additional Family Medical History / Comment(s): Her mother in her 70s from unknown cause. Brother(s) Additional Family Medical History / Comment(s): Patient has 4 brothers and 3 have and all brothers have had diabetes and coronary artery disease. Sister(s) Additional Family Medical History / Comment(s): Patient has 3 sisters that have all . One from CVA. 2 sisters with coronary artery disease and diabetes. Patient has one son known to have diabetes. Medications and Allergies Home Medications Medication Instructions Recorded Confirmed Type Calcium Carbonate [Calcium] 600 mg PO AC-LUNCH 06/28/16 09/26/18 History Multivitamins, Thera [Multivitamin 1 tab PO AC-LUNCH 06/28/16 09/26/18 History (formulary)] Red Yeast Rice 600 mg PO DAILY 06/28/16 09/26/18 History Cholecalciferol [Vitamin D3 (25 1,000 unit PO AC-LUNCH 06/28/18 09/26/18 History Mcg = 1000 Iu)] Lisinopril-Hctz 20-25 mg 1 tab PO DAILY 06/28/18 09/26/18 History [Zestoretic 20-25] Ondansetron HCl [Zofran] 4 mg PO BID PRN 06/28/18 09/26/18 History hydrALAZINE HCL [Apresoline] 50 mg PO BID 06/28/18 09/26/18 History Furosemide [Lasix] 20 mg PO Q48H #0 07/01/18 09/26/18 Rx Potassium Chloride [Klor-Con 10] 10 meq PO Q48H #0 07/01/18 09/26/18 Rx Iron 28mg 28 mg PO DAILY 09/26/18 09/26/18 History Omeprazole Magnesium [PriLOSEC OTC] 20 mg PO DAILY 09/26/18 09/26/18 History Allergies Allergy/AdvReac Type Severity Reaction Status Date / Time No Known Allergies Allergy Verified 09/29/18 11:52 Physical Exam Vitals: Patient is on full ventilator support T-max is 99 heart rate is 66 respiratory rate 16 blood pressure 110/60 saturation 99% Patient intubated still under affect of anesthetic agent, unresponsive - Constitutional General appearance: average body habitus, disheveled, no acute distress - EENT Eyes: PERRLA Ears: bilateral: normal - Neck Neck: normal ROM Carotids: bilateral: upstroke normal, bruit absent Thyroid: bilateral: normal size - Respiratory Respiratory: bilateral: CTA - Cardiovascular Rhythm: regular Heart sounds: normal: S1, S2 - Gastrointestinal General gastrointestinal: absent bowel sounds Sedated unable to assess neuro exam is still under affect of anesthetic agent Results - Laboratory Findings CBC and BMP: 09/30/18 04:42 09/30/18 04:42 Abnormal lab findings: - Diagnostic Findings Chest x-ray: report reviewed, image reviewed (ET tube in a stable position, NG tube was stable, bilateral basal atelectasis) Assessment and Plan Assessment: Respiratory failure, postoperative expectant related to anesthetic agent Sigmoid colon obstruction status post resection Bilateral basal atelectasis Failure to wean Sepsis Metabolic acidosis Dehydration and intravascular volume depletion Leukocytosis likely related to postoperative stress Plan: Gentle rehydration and intermittent fluid boluses Vasopressor Continue vent support no plans for weaning tonight We'll proceed with weaning and possible extubation depending upon response tomorrow Repeat labs and x-ray including ABGs tomorrow Sedation as needed with propofol Further recommendations pending plan of care as per clinical response of the patient Pain management with epidural anesthesia and analgesia as per anesthesia Time with Patient: Greater than 30
--- NOTE | 2018-09-30 14:56 | P.PN ---
Subjective Progress Note Date: 09/30/18 (Critical care time over 35 minutes) Principal diagnosis: Sigmoid colon Bowel obstruction, Metabolic acidosis, leukocytosis, stage III renal failure hyperkalemia , intravascular volume depletion and dehydration 09/30/2018, patient seen and evaluated examined during the rounds labs reviewed medications reviewed care plan discussed with the staff at length patient has been on full ventilator support with assist control of 14 tidal volume of 400 PEEP of 5 and oxygen of 40% patient has been placed on CPAP of 5 pressure support of 5 and arterial blood gases were checked patient is still have metabolic acidosis but weaning parameters are adequate we'll proceed with extubation due to metabolic acidosis patient will be started on bicarb drip 1 amp of bicarb has been given, patient will be started on broad-spectrum antibiotics with Zosyn and Flagyl as well, white cell count noted to be elevated of 18,000 from 10,000 yesterday, has received multiple fluid boluses [facility] is been off of vasopressors and propofol has been tapered and discontinued patient remains on MARKETING ANALYTICS MANAGER pump, chest x-ray evaluated continue show basal atelectasis likely due to intra-abdominal process with stable tubing Objective - Vital Signs Vital signs: Vital Signs Temp 97.5 F L 09/30/18 12:00 Pulse 120 H 09/30/18 14:00 Resp 10 L 09/30/18 14:00 BP 103/61 09/30/18 14:00 Pulse Ox 97 09/30/18 14:00 Intake & Output 09/29/18 09/30/18 09/30/18 18:59 06:59 18:59 Intake Total 3400 6855.381 6009.484 Output Total 620 765 230 Balance 2780 648.491 6044.484 Weight 63.5 kg 63.5 kg Intake: IV 3400 935 1700 D5-0.45% NaCl with KCl 850 20Meq/l 1,000 ml @ 85 mls /hr IV .[id number] [facility] Rx#: [id number] LR 85 Sodium Chloride 0.9% 1, 700 000 ml @ 100 mls/hr IV . Q10H [facility] Rx#:[id number] Sodium Chloride 0.9% 1, 1000 000 ml @ 999 mls/hr IV . Q1H1M [facility] Rx#:[id number] Intake, IV Titration 187.760 140.484 Amount Norepinephrine 4 mg In 177.556 76.444 Sodium Chloride 0.9% 250 ml @ 0.05 MCG/KG/MIN 11. 925 mls/hr IV .[id number] [facility] Rx#:[id number] Propofol 1,000 mg In 10.204 64.04 Empty Bag 1 bag @ Titrate IV .Q0M [facility] Rx#: [id number] Ropivacaine 250 mg 0 Hydromorphone (Pf) 5 mg In Sodium Chloride 0.9% 200 ml @ Per Protocol EPIDURAL .Q0M PRN Rx#: [id number] Output: Drainage 560 110 Abdomen 560 110 Urine 140 205 120 Estimated Blood Loss 480 Other: Voiding Method Indwelling Catheter Indwelling Catheter # Voids 2 # Bowel Movements 1 - Exam atient intubated still under affect of anesthetic agent, unresponsive - Constitutional General appearance: average body habitus, disheveled, no acute distress - EENT Eyes: PERRLA Ears: bilateral: normal - Neck Neck: normal ROM Carotids: bilateral: upstroke normal, bruit absent Thyroid: bilateral: normal size - Respiratory Respiratory: bilateral: CTA - Cardiovascular Rhythm: regular Heart sounds: normal: S1, S2 - Gastrointestinal General gastrointestinal: absent bowel sounds Sedated unable to assess neuro exam is still under affect of anesthetic agent - Labs CBC & Chem 7: 09/30/18 04:42 09/30/18 04:42 Labs: Abnormal Lab Results - Last 24 Hours (Table) 09/29/18 09/29/18 09/29/18 Range/Units 17:25 18:55 18:55 WBC (3.8-10.6) k/uL RBC 3.53 L (3.80-5.40) m/uL Hgb 9.8 L D (11.4-16.0) gm/dL Hct 32.1 L (34.0-46.0) % MCHC 30.4 L (31.0-37.0) g/dL RDW (11.5-15.5) % Neutrophils # (1.3-7.7) k/uL PT 12.4 H (9.0-12.0) sec INR 1.2 H (<1.2) ABG pH 7.23 L (7.35-7.45) ABG pCO2 (35-45) mmHg ABG pO2 183 H (83-108) mmHg ABG HCO3 18 L (21-25) mmol/L ABG O2 Saturation 99.0 H (94-97) % Potassium (3.5-5.1) mmol/L Chloride (98-107) mmol/L Carbon Dioxide (22-30) mmol/L BUN (7-17) mg/dL Creatinine (0.52-1.04) mg/dL Glucose (74-99) mg/dL POC Glucose (mg/dL) (75-99) mg/dL Calcium (8.4-10.2) mg/dL Alkaline Phosphatase (38-126) U/L Total Protein (6.3-8.2) g/dL Albumin (3.5-5.0) g/dL 09/29/18 09/29/18 09/30/18 Range/Units 18:55 19:02 04:08 WBC (3.8-10.6) k/uL RBC (3.80-5.40) m/uL Hgb (11.4-16.0) gm/dL Hct (34.0-46.0) % MCHC (31.0-37.0) g/dL RDW (11.5-15.5) % Neutrophils # (1.3-7.7) k/uL PT (9.0-12.0) sec INR (<1.2) ABG pH (7.35-7.45) ABG pCO2 33 L (35-45) mmHg ABG pO2 159 H (83-108) mmHg ABG HCO3 18 L (21-25) mmol/L ABG O2 Saturation 99.4 H (94-97) % Potassium (3.5-5.1) mmol/L Chloride 110 H (98-107) mmol/L Carbon Dioxide 15 L (22-30) mmol/L BUN 20 H (7-17) mg/dL Creatinine (0.52-1.04) mg/dL Glucose 104 H (74-99) mg/dL POC Glucose (mg/dL) 135 H (75-99) mg/dL Calcium 8.0 L (8.4-10.2) mg/dL Alkaline Phosphatase 28 L (38-126) U/L Total Protein 4.3 L (6.3-8.2) g/dL Albumin 2.3 L (3.5-5.0) g/dL 09/30/18 09/30/18 09/30/18 Range/Units 04:42 04:42 13:48 WBC 18.0 H (3.8-10.6) k/uL RBC 3.54 L (3.80-5.40) m/uL Hgb 9.9 L (11.4-16.0) gm/dL Hct 31.2 L (34.0-46.0) % MCHC (31.0-37.0) g/dL RDW 16.4 H (11.5-15.5) % Neutrophils # 16.4 H (1.3-7.7) k/uL PT (9.0-12.0) sec INR (<1.2) ABG pH 7.22 L (7.35-7.45) ABG pCO2 46 H (35-45) mmHg ABG pO2 147 H (83-108) mmHg ABG HCO3 19 L (21-25) mmol/L ABG O2 Saturation 98.8 H (94-97) % Potassium 5.2 H (3.5-5.1) mmol/L Chloride 108 H (98-107) mmol/L Carbon Dioxide 18 L (22-30) mmol/L BUN 20 H (7-17) mg/dL Creatinine 1.18 H (0.52-1.04) mg/dL Glucose 191 H (74-99) mg/dL POC Glucose (mg/dL) (75-99) mg/dL Calcium 7.9 L (8.4-10.2) mg/dL Alkaline Phosphatase (38-126) U/L Total Protein (6.3-8.2) g/dL Albumin (3.5-5.0) g/dL Assessment and Plan Assessment: Respiratory failure, postoperative expectant related to anesthetic agent Sigmoid colon obstruction status post resection Bilateral basal atelectasis Failure to wean Sepsis Metabolic acidosis Dehydration and intravascular volume depletion Leukocytosis likely related to postoperative stress Plan: Gentle rehydration and intermittent fluid boluses Vasopressor can be tapered and discontinued it Continue vent support weaning as noted above proceed with extubation We'll proceed with weaning and possible extubation Repeat labs and x-ray including ABGs tomorrow Off of sedation Broad-spectrum antibiotics with Zosyn 3.375 every 8 hourly and Flagyl 500 mg IV every 8 hourly 1 amp of bicarb being given will start bicarb drip as well Further recommendations pending plan of care as per clinical response of the patient Pain management with epidural anesthesia and analgesia as per anesthesia Time with Patient: Greater than 30
[2018-09-30] MEDS: metroNIDAZOLE-NS PMX 500 MG in SALINE 1 100ML.BAG IVPB SCH (16:15)
[2018-09-30] MEDS: NOREPINEPHRINE 4 MG in SODIUM CHLORIDE 0.9% 250 ML IV SCH (19:04)
[2018-09-30] MEDS: PIPERACILLIN-TAZOBACTAM 3.375 GM in SODIUM CHLORIDE 0.9% 100 ML IVPB SCH (20:15)
[2018-10-01] MEDS: metroNIDAZOLE-NS PMX 500 MG in SALINE 1 100ML.BAG IVPB SCH ×3 (00:27→16:18)
[2018-10-01] MEDS: SODIUM CHLORIDE 0.9% 1,000 ML IV SCH ×2 (03:35→20:21)
[2018-10-01 04:35] LABS: ABG HCO3 26 mmol/L (21-25); ABG Oxygen Saturation 98.6 % (94-97); ABG PCO2 54 mmHg (35-45); ABG PH 7.28 (7.35-7.45); ABG PO2 114 mmHg (83-108); ABG TCO2 27 mmol/L (19-24); Allen Test Performed? Yes
[2018-10-01 05:35] LABS: Anisocytosis Slight; Basophils % (A) 0 %; Eosinophils % (A) 0 %; Hypochromasia Moderate; Lymphocytes # (A) 1.2 k/uL (1.0-4.8); Lymphocytes % (A) 8 %; MCH 27.5 pg (25.0-35.0); MCHC 31.2 g/dL (31.0-37.0); MCV 88.3 fL (80.0-100.0); Mean Platelet Volume 7.7; Monocytes # (A) 0.4 k/uL (0-1.0); Monocytes % (A) 3 %; Neutrophils # (A) 12.7 k/uL (1.3-7.7); Neutrophils % (A) 88 %; Platelet Count 182 k/uL (150-450); RBC 3.06 m/uL (3.80-5.40); RDW 16.2 % (11.5-15.5); WBC 14.5 k/uL (3.8-10.6)
[2018-10-01 05:38] LABS: HGB 8.4 gm/dL (11.4-16.0)
[2018-10-01 05:49] LABS: Albumin 2.1 g/dL (3.5-5.0); Calcium 7.2 mg/dL (8.4-10.2); Magnesium 1.3 mg/dL (1.6-2.3); Potassium 4.1 mmol/L (3.5-5.1); Total Bilirubin 0.3 mg/dL (0.2-1.3)
[2018-10-01] MEDS: PIPERACILLIN-TAZOBACTAM 3.375 GM in SODIUM CHLORIDE 0.9% 100 ML IVPB SCH ×3 (05:52→21:57)
[2018-10-01] MEDS ORDERED: Magnesium Replacement Protocol 1 EACH MISC MISCELLANE PRN (05:55)
[2018-10-01] MEDS: MAGNESIUM SULFATE-D5W PMX 1 GM in DEXTROSE/WATER 1 100ML.BAG IVPB SCH ×3 (06:29→10:14)
--- NOTE | 2018-10-01 06:35 | XR ---
EXAMINATION TYPE: XR chest 1V portable DATE OF EXAM: 10/01/2018 CLINICAL HISTORY: Difficulty breathing progress study. TECHNIQUE: Single AP portable semiupright view of the chest is obtained. COMPARISON: Chest x-ray from one day earlier and older studies. FINDINGS: Interval extubation with removal of endotracheal tube. Low lung volumes with increasing bi basilar opacities is present. Upper lungs are clear without pneumothorax. Cardiac silhouette size is stable and within normal limits. Multilevel spurring in thoracic spine is redemonstrated. IMPRESSION: Interval extubation. Worsening bibasilar acute infiltrate and/or atelectasis and probable persistent small right pleural effusion are all identified.
[2018-10-01] MEDS: HEPARIN SODIUM,PORCINE 5,000 UNIT/ML 1 ML VIAL SQ SCH ×2 (07:44→21:56)
[2018-10-01] MEDS: PANTOPRAZOLE 40 MG/10 ML VIAL IVP SCH ×2 (07:44→21:56)
[2018-10-01] MEDS ORDERED: SODIUM CHLORIDE 0.9% 1,000 ML IV ONE (08:48)
[2018-10-01] MEDS ORDERED: FUROSEMIDE 10 MG/ML 2 ML VIAL IV ONE (09:13)
--- NOTE | 2018-10-01 09:17 | P.PN ---
Subjective Progress Note Date: 10/01/18 Principal diagnosis: Sigmoid colon Bowel obstruction, Metabolic acidosis, leukocytosis, stage III renal failure hyperkalemia , intravascular volume depletion and dehydration 10/01/2018, patient seen and evaluated examined during the rounds labs reviewed medications reviewed care plan discussed with the staff at length critical care time spent 35 minutes. And has been on supplemental oxygen this morning and gases revealed hypercapnia along with metabolic and respiratory acidosis patient is somnolent on epidural pump, labs reviewed medications reviewed magnesium is very low hemoglobin is low but stable, respiratory metabolic acidosis has been seen patient is almost finishing bicarb drip, chest x-ray showed right-sided effusion with basal left subsegmental atelectasis will give small dose of Lasix DC the epidural patient is suspected to have hypoventilation and related hypoxia once she is awake enough and then will DC the BiPAP, patient does respond to verbal stimuli denies any shortness of breath and chest pain denies any abdominal pain or discomfort 09/30/2018, patient seen and evaluated examined during the rounds labs reviewed medications reviewed care plan discussed with the staff at length patient has been on full ventilator support with assist control of 14 tidal volume of 400 PEEP of 5 and oxygen of 40% patient has been placed on CPAP of 5 pressure gramajo pport of 5 and arterial blood gases were checked patient is still have metabolic acidosis but weaning parameters are adequate we'll proceed with extubation due to metabolic acidosis patient will be started on bicarb drip 1 amp of bicarb has been given, patient will be started on broad-spectrum antibiotics with Zosyn and Flagyl as well, white cell count noted to be elevated of 18,000 from 10,000 ye sterday, has received multiple fluid boluses however is been off of vasopressors and propofol has been tapered and discontinued 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 Patient is on ventilator could not be weaned she is still s omnolent and not arousable still alive under affect of anesthetic agent likely will be placed and kept in ICU on ventilator with full ventilator support with plan of screening for tomorrow and possible extubation Review of the medical records revealed that patient is an 83-year-old female patient of Dr. Castillo with past medical history of hypertension, gastroesophageal reflux disease, rectocele. Patient was recently hospitalized in June 2018 and son gave this history of ongoing problems with rectocele. They were recently traveling and patient was admitted to [facility] in [place] and was treated that time for colitis with 2 antibiotics but then realized it was not colitis. She has since returned home and [facility] has been subsequently referred to a surgeon in [place] of rectocele surgery. The patient was admitted in June for acute kidney injury due to vomiting and diarrhea, hypertension, rectocele and GERD. She was discharged home with follow-up with Dr. Castillo and has subsequently seen by Dr. Manzo and underwent colonoscopy about 2 and half weeks ago which patient states she had a colon blockage in the upper part of the colon and could not get through. Patient complains of diarrhea and vomiting that started on 4 days ago and got worse aggressively on the day of admission. There is no history of chest pain or shortness of breath, fever or chills. Due to persistent problem associated abdominal discomfort and pain patient was taken to OR earlier today underwent resection as noted and appears to be not ready for weaning and extubation Objective - Vital Signs Vital signs: Vital Signs Temp 98.2 F 10/01/18 08:00 Pulse 96 10/01/18 08:30 Resp 13 10/01/18 08:30 BP 108/42 10/01/18 08:30 Pulse Ox 98 10/01/18 08:30 Intake & Output 09/30/18 10/01/18 10/01/18 18:59 06:59 18:59 Intake Total 2540.484 2350 350 Output Total 305 455 50 Balance 2235.484 1895 300 Weight 63.5 kg 65 kg Intake: IV 2400 2350 350 Dextrose 5% in Water 1, 200 650 50 000 ml @ 50 mls/hr IV . Q23H [facility] with Sodium Bicarb (1 Meq/ml) 150 ml Rx#:[id number] Magnesium Sulfate-D5w Pmx 100 100 1 gm In Dextrose/Water 1 100ml.bag @ 100 mls/hr IVPB Q1H [facility] Rx#: [id number] Piperacillin-Tazobactam 3 200 .375 gm In Sodium Chloride 0.9% 100 ml @ 25 mls/hr IVPB Q8H [facility] Rx#: [id number] Sodium Chloride 0.9% 1, 1100 1300 100 000 ml @ 100 mls/hr IV . Q10H [facility] Rx#:[id number] Sodium Chloride 0.9% 1, 1000 000 ml @ 999 mls/hr IV . Q1H1M [facility] Rx#:[id number] metroNIDAZOLE-NS PMX 500 100 100 100 mg In Saline 1 100ml.bag @ 100 mls/hr IVPB Q8HR [facility] Rx#:[id number] Intake, IV Titration 140.484 Amount Norepinephrine 4 mg In 76.444 Sodium Chloride 0.9% 250 ml @ 0.05 MCG/KG/MIN 11. 925 mls/hr IV .[id number] [facility] Rx#:[id number] Propofol 1,000 mg In 64.04 Empty Bag 1 bag @ Titrate IV .Q0M [facility] Rx#: [id number] Output: Drainage 110 235 Abdomen 110 235 Urine 195 220 50 Other: Voiding Method Indwelling Catheter Indwelling Catheter Indwelling Catheter - Exam Awake alert slightly somnolent in between still on epidural - Constitutional General appearance: average body habitus, disheveled, no acute distress - EENT Eyes: PERRLA Ears: bilateral: normal - Neck Neck: normal ROM Carotids: bilateral: upstroke normal, bruit absent Thyroid: bilateral: normal size - Respiratory Respiratory: bilateral: CTA - Cardiovascular Rhythm: regular Heart sounds: normal: S1, S2 - Gastrointestinal General gastrointestinal: absent bowel sounds Neuro alert and awake moving all 4 extremity - Labs CBC & Chem 7: 10/01/18 05:08 10/01/18 05:08 Labs: Abnormal Lab Results - Last 24 Hours (Table) 09/30/18 10/01/18 10/01/18 Range/Units 13:48 04:35 05:08 WBC 14.5 H (3.8-10.6) k/uL RBC 3.06 L (3.80-5.40) m/uL Hgb 8.4 L D (11.4-16.0) gm/dL Hct 27.0 L (34.0-46.0) % RDW 16.2 H (11.5-15.5) % Neutrophils # 12.7 H (1.3-7.7) k/uL ABG pH 7.22 L 7.28 L (7.35-7.45) ABG pCO2 46 H 54 H (35-45) mmHg ABG pO2 147 H 114 H (83-108) mmHg ABG HCO3 19 L 26 H (21-25) mmol/L ABG Total CO2 27 H (19-24) mmol/L ABG O2 Saturation 98.8 H 98.6 H (94-97) % Chloride (98-107) mmol/L BUN (7-17) mg/dL Creatinine (0.52-1.04) mg/dL Glucose (74-99) mg/dL Calcium (8.4-10.2) mg/dL Magnesium (1.6-2.3) mg/dL Total Protein (6.3-8.2) g/dL Albumin (3.5-5.0) g/dL 10/01/18 Range/Units 05:08 WBC (3.8-10.6) k/uL RBC (3.80-5.40) m/uL Hgb (11.4-16.0) gm/dL Hct (34.0-46.0) % RDW (11.5-15.5) % Neutrophils # (1.3-7.7) k/uL ABG pH (7.35-7.45) ABG pCO2 (35-45) mmHg ABG pO2 (83-108) mmHg ABG HCO3 (21-25) mmol/L ABG Total CO2 (19-24) mmol/L ABG O2 Saturation (94-97) % Chloride 111 H (98-107) mmol/L BUN 24 H (7-17) mg/dL Creatinine 1.44 H (0.52-1.04) mg/dL Glucose 139 H (74-99) mg/dL Calcium 7.2 L (8.4-10.2) mg/dL Magnesium 1.3 L (1.6-2.3) mg/dL Total Protein 4.0 L (6.3-8.2) g/dL Albumin 2.1 L (3.5-5.0) g/dL Assessment and Plan Assessment: Respiratory failure, postoperative expectant related to anesthetic agent and epidural Hypercapnic hypoxic respiratory failure related to hypoventilation and metabolic and respiratory acidosis Sigmoid colon obstruction status post resection Right-sided pleural effusion Bilateral basal atelectasis Sepsis Metabolic acidosis Dehydration and intravascular volume depletion Leukocytosis likely related to postoperative stress Electrolyte imbalance with severe hypomagnesemia Plan: Gentle rehydration and intermittent fluid boluses will give albumin Lasix 20 mg IV 1 Epidural analgesia can be tapered and discontinued it Continue BiPAP support until more awake and alert Replace magnesium and electrolytes Repeat labs and x-ray including ABGs tomorrow Broad-spectrum antibiotics with Zosyn 3.375 every 8 hourly and Flagyl 500 mg IV every 8 hourly DC bicarb drip as well Speech evaluation for depressed swallowing Further recommendations pending plan of care as per clinical response of the patient Pain management with morphine when necessary once epidural is off Critical care time 35 minutes Time with Patient: Greater than 30
[2018-10-01] MEDS: ALBUMIN HUMAN 25% 50 ML in EMPTY BAG 1 BAG IVPB SCH ×2 (09:21→10:15)
[2018-10-01] MEDS: FERROUS SULFATE 325 MG TAB PO SCH (09:39)
--- NOTE | 2018-10-01 09:47 | P.PN ---
Subjective Progress Note Date: 10/01/18 Principal diagnosis: S/P sigmoid resection The patient is seen on rounds. She was was extubated yesterday. She has required BiPAP due to hypercapnia. Will respond to questioning appropriately. Denies any pain.Nursing did try to give the patient sips of clear liquids. This resulted in coughing. speech pathology evaluation was ordered. Objective - Vital Signs Vital signs: Vital Signs Temp 98.2 F 10/01/18 08:00 Pulse 102 H 10/01/18 09:00 Resp 14 10/01/18 09:00 BP 108/42 10/01/18 09:00 Pulse Ox 85 L 10/01/18 09:00 Intake & Output 09/30/18 10/01/18 10/01/18 18:59 06:59 18:59 Intake Total 2540.484 2350 674.417 Output Total 305 455 80 Balance 2235.484 1895 594.417 Weight 63.5 kg 65 kg Intake: IV 2400 2350 500 Dextrose 5% in Water 1, 200 650 100 000 ml @ 50 mls/hr IV . Q23H [facility] with Sodium Bicarb (1 Meq/ml) 150 ml Rx#:[id number] Magnesium Sulfate-D5w Pmx 100 100 1 gm In Dextrose/Water 1 100ml.bag @ 100 mls/hr IVPB Q1H [facility] Rx#: [id number] Piperacillin-Tazobactam 3 200 .375 gm In Sodium Chloride 0.9% 100 ml @ 25 mls/hr IVPB Q8H [facility] Rx#: [id number] Sodium Chloride 0.9% 1, 1100 1300 200 000 ml @ 100 mls/hr IV . Q10H [facility] Rx#:[id number] Sodium Chloride 0.9% 1, 1000 000 ml @ 999 mls/hr IV . Q1H1M [facility] Rx#:[id number] metroNIDAZOLE-NS PMX 500 100 100 100 mg In Saline 1 100ml.bag @ 100 mls/hr IVPB Q8HR [facility] Rx#:[id number] Intake, IV Titration 140.484 174.417 Amount Norepinephrine 4 mg In 76.444 Sodium Chloride 0.9% 250 ml @ 0.05 MCG/KG/MIN 11. 925 mls/hr IV .[id number] [facility] Rx#:[id number] Propofol 1,000 mg In 64.04 Empty Bag 1 bag @ Titrate IV .Q0M [facility] Rx#: [id number] Ropivacaine 250 mg 174.417 Hydromorphone (Pf) 5 mg In Sodium Chloride 0.9% 200 ml @ Per Protocol EPIDURAL .Q0M [facility] Rx#: [id number] Output: Drainage 110 235 Abdomen 110 235 Urine 195 220 80 Other: Voiding Method Indwelling Catheter Indwelling Catheter Indwelling Catheter - Constitutional General appearance: Present: cooperative, no acute distress - Respiratory Respiratory: bilateral: CTA, diminished (at the bases) - Cardiovascular Rhythm: regular - Gastrointestinal General gastrointestinal: Present: decreased bowel sounds, soft Localized gastrointestinal: surgical scar: diffuse (incision was some serosanguineous drainage from the earl. No cellulitis. TARI is serosanguineous.) - Integumentary Integumentary Comment(s): pitting edema upper and lower extremities - Labs CBC & Chem 7: 10/01/18 05:08 10/01/18 05:08 Labs: Abnormal Lab Results - Last 24 Hours (Table) 09/30/18 10/01/18 10/01/18 Range/Units 13:48 04:35 05:08 WBC 14.5 H (3.8-10.6) k/uL RBC 3.06 L (3.80-5.40) m/uL Hgb 8.4 L D (11.4-16.0) gm/dL Hct 27.0 L (34.0-46.0) % RDW 16.2 H (11.5-15.5) % Neutrophils # 12.7 H (1.3-7.7) k/uL ABG pH 7.22 L 7.28 L (7.35-7.45) ABG pCO2 46 H 54 H (35-45) mmHg ABG pO2 147 H 114 H (83-108) mmHg ABG HCO3 19 L 26 H (21-25) mmol/L ABG Total CO2 27 H (19-24) mmol/L ABG O2 Saturation 98.8 H 98.6 H (94-97) % Chloride (98-107) mmol/L BUN (7-17) mg/dL Creatinine (0.52-1.04) mg/dL Glucose (74-99) mg/dL Calcium (8.4-10.2) mg/dL Magnesium (1.6-2.3) mg/dL Total Protein (6.3-8.2) g/dL Albumin (3.5-5.0) g/dL 10/01/18 Range/Units 05:08 WBC (3.8-10.6) k/uL RBC (3.80-5.40) m/uL Hgb (11.4-16.0) gm/dL Hct (34.0-46.0) % RDW (11.5-15.5) % Neutrophils # (1.3-7.7) k/uL ABG pH (7.35-7.45) ABG pCO2 (35-45) mmHg ABG pO2 (83-108) mmHg ABG HCO3 (21-25) mmol/L ABG Total CO2 (19-24) mmol/L ABG O2 Saturation (94-97) % Chloride 111 H (98-107) mmol/L BUN 24 H (7-17) mg/dL Creatinine 1.44 H (0.52-1.04) mg/dL Glucose 139 H (74-99) mg/dL Calcium 7.2 L (8.4-10.2) mg/dL Magnesium 1.3 L (1.6-2.3) mg/dL Total Protein 4.0 L (6.3-8.2) g/dL Albumin 2.1 L (3.5-5.0) g/dL Assessment and Plan (1) Stricture of sigmoid colon Current Visit: Yes Status: Acute Code(s): K56.699 - OTHER INTESTNL OBST UNSP TO PARTIAL VERSUS COMPLETE OBST SNOMED Code(s): 4621224 (2) Colonic obstruction Current Visit: Yes Status: Acute Code(s): K56.609 - UNSP INTESTNL OBST, UNSP TO PARTIAL VERSUS COMPLETE OBST SNOMED Code(s): 36572663 (3) Respiratory failure Current Visit: Yes Status: Acute Code(s): J96.90 - RESPIRATORY FAILURE, UNSP, UNSP W HYPOXIA OR HYPERCAPNIA SNOMED Code(s): 255970101 Plan: await speech pathology evaluation. I anticipate she'll be able to resume a diet within the next day or 2. Continue supportive medical care. Progressing slowly.
--- NOTE | 2018-10-01 11:12 | P.PN ---
Progress Note - Text Anesthesia POD 2. Status Post bowel resection under general endotracheal anesthesia with an epidrual catheter placed at L3 4 for post surgical pain releif. VAS (0, 2) with Ropivicaine 0.1 % and Dilaudid 20 mcg / cc running at 2 cc / hr. Lower extremity strength (?/4). Significant sedation. Site looks OK. Patient is significantly sedated with Dilaudid 20 mics per cc and her epidural which was running at 6 mL per hour and is now running at 2 mL/h after being reduced. Her transmission assembler wishes to discontinue the epidural which seems like a reasonable course of action.
[2018-10-01] MEDS: MULTIVITAMINS, THERA 1 EACH TAB PO SCH (11:13)
--- NOTE | 2018-10-01 14:09 | P.PN ---
Subjective Progress Note Date: 10/01/18 This is an 83-year-old female patient of Dr. Castillo with past medical history of hypertension, gastroesophageal reflux disease, rectocele. Patient was recently hospitalized in June 2018 and son gave this history of ongoing problems with rectocele. They were recently traveling and patient was admitted to [facility] in [place] and was treated that time for colitis with 2 antibiotics but then realized it was not colitis. She has since returned home and [facility] referred to a surgeon in [place] of rectocele surgery. The patient was admitted in June for acute kidney injury due to vomiting and diarrhea, hypertension, rectocele and GERD. She was discharged home with follow-up with Dr. Castillo and has subsequently seen by Dr. Manzo and underwent colonoscopy about 2 and half weeks ago which patient states she had a colon blockage in the upper part of the colon and could not get through. Patient complains of diarrhea and vomiting that started on Friday and got worse yesterday. She denies having any chest pain or shortness of breath. She denies any fever or chills. Today she states her abdomen is not bad. She did have a diarrhea stool today at around 10 AM that was non-bloody. KUB revealed persistent distal colonic obstruction likely improved from September 11. Patient underwent a barium enema study on September 01 as an outpatient which revealed severely distended transverse colon measuring up to 9.4 [address] the patient risk for perforation. Sigmoid diverticulosis with a 5 cm long tight stricture at the level of the mid sigmoid. Rectal contrast administration became painful for the patient due to the degree of rectal distention. Contrast eventually traverses the stricture but the exam is stopped before complete filling of the ascending colon and cecum due to patient pain. The stricture could be secondary to chronic diverticulitis or underlying constricting neoplasm. Chest x-ray done for NG tube placed that revealed the tube was not well characterized and recommended advancing. Patient was found to be afebrile, blood pressure 104/68, heart rate 85, pulse ox 95%. White count was normal at 6.6, hemoglobin 11.8. Electrolytes within normal limits, BUN 41 creatinine 1.57, blood sugar 125. NG tube was placed in the emergency center and patient was admitted to the [facility] floor and consult has been added for general surgery. Repeat chest x-ray reveals continuing dilatation of the colon, bibasilar atelectasis. Abdominal x-rays reveal continuing colonic ileus versus obstruction. 09/28 patient examined bedside denies any nausea but does endorses abdominal pain and discomfort. She is currently nothing by mouth for possible surgery tomorrow. Vitals are stable with a temperature of 98, pulse rate 72 and respiratory rate 16 blood pressure 120/69 saturating well on room air. Creatini ne 1.2) patient's baseline of 0.89-1 continue IV fluids. Small sips of water allowed with medication. 09/29 Patient in surgery could not be evaluated on rounds today 09/30 patient was seen and evaluated in ICU and is still intubated. Patient underwent sigmoid resection for large bowel obstruction on 09/29 but was reintubated after extubation in the recovery room. Patient had a low urine outputs and received fluid boluses blood pressure this morning is 113/48 on levo fed running at 3 mics per hour. Will give one bolus of 1 L of normal saline and additional bolus of 500 mL afterwards. Patient is responding appropriately and answering simple questions on propofol. Plan to extubate today. 10/01 patient examined in the endorses oriented answering questions appropriately. Appears to be tired and lethargic. Blood pressure on the lower side patient did receive a dose of albumin today. Lasix 20 IV once was given for decreased urine output. Urine output currently is on 5200 mL per hour. We will reduce IV fluidspatient appears swollen. Patient has not passed flutters with normal bowel sounds. ABG suggestive of hypercarbia secondary to opioid/ PIT CLERK pump that has been going discontinue patient is currently on 2 L of oxygen. Leukocytosis is improved from 18-14. PH is 7.28 pCO2 of 54 oxygenation 114 patient did require BiPAP briefly this morning due to hypercarbia. Creatinine stable at 1.44 7.2 Albumin Is 2.1 Objective - Vital Signs Vital signs: Vital Signs Temp 98.1 F 10/01/18 12:00 Pulse 91 10/01/18 13:00 Resp 14 10/01/18 13:00 BP 108/53 10/01/18 13:00 Pulse Ox 96 10/01/18 13:00 Intake & Output 09/30/18 10/01/18 10/01/18 18:59 06:59 18:59 Intake Total 2540.484 2350 1374.417 Output Total 305 455 425 Balance 2235.484 1895 949.417 Weight 63.5 kg 65 kg Intake: IV 2400 2350 1200 Albumin Human 25% 50 ml 100 In Empty Bag 1 bag @ 50 mls/hr IVPB Q1H [facility] Rx#: [id number] Dextrose 5% in Water 1, 200 650 300 000 ml @ 50 mls/hr IV . Q23H [facility] with Sodium Bicarb (1 Meq/ml) 150 ml Rx#:[id number] Magnesium Sulfate-D5w Pmx 100 100 1 gm In Dextrose/Water 1 100ml.bag @ 100 mls/hr IVPB Q1H [facility] Rx#: [id number] Piperacillin-Tazobactam 3 200 .375 gm In Sodium Chloride 0.9% 100 ml @ 25 mls/hr IVPB Q8H [facility] Rx#: [id number] Sodium Chloride 0.9% 1, 1100 1300 600 000 ml @ 100 mls/hr IV . Q10H [facility] Rx#:[id number] Sodium Chloride 0.9% 1, 1000 000 ml @ 999 mls/hr IV . Q1H1M [facility] Rx#:[id number] metroNIDAZOLE-NS PMX 500 100 100 100 mg In Saline 1 100ml.bag @ 100 mls/hr IVPB Q8HR [facility] Rx#:[id number] Intake, IV Titration 140.484 174.417 Amount Norepinephrine 4 mg In 76.444 Sodium Chloride 0.9% 250 ml @ 0.05 MCG/KG/MIN 11. 925 mls/hr IV .[id number] [facility] Rx#:[id number] Propofol 1,000 mg In 64.04 Empty Bag 1 bag @ Titrate IV .Q0M [facility] Rx#: [id number] Ropivacaine 250 mg 174.417 Hydromorphone (Pf) 5 mg In Sodium Chloride 0.9% 200 ml @ Per Protocol EPIDURAL .Q0M [facility] Rx#: [id number] Output: Drainage 110 235 Abdomen 110 235 Urine 195 220 425 Other: Voiding Method Indwelling Catheter Indwelling Catheter Indwelling Catheter # Bowel Movements 1 - Exam Review of system Constitutional: Denies chills, Denies fever, endorses lethargy Eyes: denies decreased vision, denies diplopia, denies discharge, denies pain Ears: decreased hearing Ears, nose, mouth and throat: Denies dental pain, Denies headache, Denies nasal discharge, Denies nose pain Cardiovascular: Denies chest pain, Denies decreased exercise tolerance, Denies edema, Denies high blood pressure, Denies irregular heart beat, Denies palpitations, Denies paroxysmal nocturnal dyspnea, Denies rapid heart beat, Denies shortness of breath Respiratory: Denies congestion, Denies cough, Denies cough with sputum, Denies dyspnea, Denies home oxygen, Denies wheezing Gastrointestinal: Endorses abdominal pain, Denies change in bowel habits, Denies coffee ground emesis, Denies early satiety, Denies excessive gas, Denies heartburn, Denies hematemesis, Denies hematochezia, Denies loss of appetite, Denies nausea, Denies vomiting Genitourinary: Denies dysuria, Denies flank pain, Denies kidney stones, Denies menorrhagia, Denies urgency, Denies urinary frequency Musculoskeletal, Denies limitation of motion, Denies morning stiffness, Denies muscle cramps Integumentary: Abdominal wound dressed with seepage seen on the dressing Neurological: Denies balance difficulties, Denies change in speech, Denies double vision, Denies gait dysfunction, Denies loss of vision, Denies motor disturbance, Denies numbness, Denies paralysis, Denies paresthesias, Denies seizures Psychiatric: Denies anxiety, Denies depression Endocrine: Denies excessive sweating, Denies excessive thirst, Denies high blood sugars, Denies palpitations Hematologic/Lymphatic: Denies easy bruising, Denies lymphadenopathy - Constitutional General appearance: cooperative, no acute distress - EENT Eyes: anicteric sclerae, PERRLA, normal appearance ENT: hearing grossly normal intubated - Neck Neck: no lymphadenopathy, normal ROM - Respiratory Respiratory: bilateral: CTA, negative: diminished, dullness, rales, rhonchi - Cardiovascular Rhythm: regular Heart sounds: normal: S1, S2 Abnormal Heart Sounds: no systolic murmur, no diastolic murmur, no rub, no S3 Gallop, no S4 Gallop, no click, no other - Gastrointestinal General gastrointestinal: normal bowel sounds, soft tender on palpation TARI drain in place wound covered with dressings - Integumentary Integumentary: no rash - Neurologic Neurologic: CNII-XII intact - Musculoskeletal Musculoskeletal: strength equal bilaterally - Psychiatric Psychiatric: A&O x's 3, appropriate affect - Labs CBC & Chem 7: 10/01/18 05:08 10/01/18 05:08 Labs: Abnormal Lab Results - Last 24 Hours (Table) 10/01/18 10/01/18 10/01/18 Range/Units 04:35 05:08 05:08 WBC 14.5 H (3.8-10.6) k/uL RBC 3.06 L (3.80-5.40) m/uL Hgb 8.4 L D (11.4-16.0) gm/dL Hct 27.0 L (34.0-46.0) % RDW 16.2 H (11.5-15.5) % Neutrophils # 12.7 H (1.3-7.7) k/uL ABG pH 7.28 L (7.35-7.45) ABG pCO2 54 H (35-45) mmHg ABG pO2 114 H (83-108) mmHg ABG HCO3 26 H (21-25) mmol/L ABG Total CO2 27 H (19-24) mmol/L ABG O2 Saturation 98.6 H (94-97) % Chloride 111 H (98-107) mmol/L BUN 24 H (7-17) mg/dL Creatinine 1.44 H (0.52-1.04) mg/dL Glucose 139 H (74-99) mg/dL Calcium 7.2 L (8.4-10.2) mg/dL Magnesium 1.3 L (1.6-2.3) mg/dL Total Protein 4.0 L (6.3-8.2) g/dL Albumin 2.1 L (3.5-5.0) g/dL Assessment and Plan Plan: 1. Acute kidney injury secondary to vomiting and diarrhea. Hold IV fluids due to increased third spacing. Bicarb drip discontinued Avoid nephrotoxic agents. Lasix and potassium on hold. Recheck basic metabolic panel in the morning. Creatinine improving with hydration 2. Ileus versus colonic obstruction with history of stricture of the sigmoid colon on colonoscopy status post sigmoid resection and mobilization of the sp lenic flexure on 09/29. on Zosyn and Flagyl per pulmonary 3. Hypotension. Blood pressure on the lower side we'll hold the Zestoretic and hydralazine continue levo fed 4. Gastroesophageal reflux disease. Protonix 40 mg IV twice daily. 5. Rectocele, was previously worked out by physician in [place]. 6. DVT prophylaxis. Heparin subcu. 7 acute hypercarbic respiratory failure likely secondary to medications. PIT CLERK pump patient is extubated currently on 2 L of oxygen Discharge plan: To be determined
[2018-10-01] MEDS: DEXTROSE 5% IN WATER 1,000 ML with SODIUM BICARB (1 MEQ/ML) 150 ML IV SCH (16:08)
[2018-10-01 19:30] LABS: Potassium 3.1 mmol/L (3.5-5.1)
[2018-10-01] MEDS: NOREPINEPHRINE 4 MG in SODIUM CHLORIDE 0.9% 250 ML IV SCH (20:23)
[2018-10-01] MEDS ORDERED: Potassium Replacement Protocol 1 EACH MISC MISCELLANE PRN (20:24)
[2018-10-01] MEDS: POTASSIUM CHLORIDE 10 MEQ in WATER FOR INJECTION 1 100ML.BAG IVPB SCH ×2 (21:57→23:25)
[2018-10-01] MEDS: MORPHINE SULFATE 2 MG/ML SYRINGE IVP PRN (23:34)
[2018-10-02] MEDS: metroNIDAZOLE-NS PMX 500 MG in SALINE 1 100ML.BAG IVPB SCH ×4 (00:46→23:00)
[2018-10-02] MEDS: POTASSIUM CHLORIDE 10 MEQ in WATER FOR INJECTION 1 100ML.BAG IVPB SCH ×8 (01:55→18:24)
[2018-10-02] MEDS: MORPHINE SULFATE 2 MG/ML SYRINGE IVP PRN ×4 (03:56→22:51)
[2018-10-02] MEDS: PIPERACILLIN-TAZOBACTAM 3.375 GM in SODIUM CHLORIDE 0.9% 100 ML IVPB SCH ×3 (04:00→21:08)
[2018-10-02 05:12] LABS: Anisocytosis Slight; HCT 23.9 % (34.0-46.0); HGB 7.5 gm/dL (11.4-16.0); Hypochromasia Slight; MCH 27.3 pg (25.0-35.0); MCHC 31.2 g/dL (31.0-37.0); MCV 87.7 fL (80.0-100.0); Mean Platelet Volume 7.3; Platelet Count 152 k/uL (150-450); RBC 2.73 m/uL (3.80-5.40); RDW 16.6 % (11.5-15.5); WBC 12.1 k/uL (3.8-10.6)
[2018-10-02 05:23] LABS: Calcium 7.1 mg/dL (8.4-10.2); Magnesium 1.8 mg/dL (1.6-2.3); Potassium 3.3 mmol/L (3.5-5.1)
[2018-10-02] MEDS ORDERED: Magnesium Replacement Protocol 1 EACH MISC MISCELLANE PRN (05:41)
[2018-10-02] MEDS ORDERED: Potassium Replacement Protocol 1 EACH MISC MISCELLANE PRN ×3 (05:41→18:25)
[2018-10-02] MEDS: MAGNESIUM SULFATE-D5W PMX 1 GM in DEXTROSE/WATER 1 100ML.BAG IVPB SCH ×2 (05:58→10:39)
--- NOTE | 2018-10-02 07:37 | XR ---
EXAMINATION TYPE: XR chest 1V portable DATE OF EXAM: 10/02/2018 COMPARISON: 10/01/2018 HISTORY: Shortness of breath TECHNIQUE: Single frontal view of the chest is obtained. FINDINGS: There are low lung volumes with blunting the costophrenic angles and perihilar opacities. Atelectasis is also seen at the left costophrenic angle. Cardiomediastinal silhouette is overall obsc ured. Osseous structures are grossly intact. IMPRESSION: Similar hypoventilatory lungs, trace pleural effusions, and bibasilar airspace disease. Given the hypoventilatory lungs airspace disease may represent atelectasis although pneumonia is poss ible in the proper clinical setting.
[2018-10-02] MEDS: PANTOPRAZOLE 40 MG/10 ML VIAL IVP SCH ×2 (08:01→21:06)
[2018-10-02] MEDS: HEPARIN SODIUM,PORCINE 5,000 UNIT/ML 1 ML VIAL SQ SCH ×2 (08:01→21:06)
[2018-10-02] MEDS: FERROUS SULFATE 325 MG TAB PO SCH (11:13)
[2018-10-02] MEDS: MULTIVITAMINS, THERA 1 EACH TAB PO SCH (11:13)
[2018-10-02] MEDS: POTASSIUM CHLORIDE ER 20 MEQ TAB.ER PO SCH (13:35)
[2018-10-02] MEDS ORDERED: FUROSEMIDE 10 MG/ML 2 ML VIAL IV ONE (13:51)
--- NOTE | 2018-10-02 14:20 | P.PN ---
Subjective Progress Note Date: 10/02/18 This is an 83-year-old female patient of Dr. Castillo with past medical history of hypertension, gastroesophageal reflux disease, rectocele. Patient was recently hospitalized in June 2018 and son gave this history of ongoing problems with rectocele. They were recently traveling and patient was admitted to [facility] in [place] and was treated that time for colitis with 2 antibiotics but then realized it was not colitis. She has since returned home and [facility] has been subsequently referred to a surgeon in [place] of rectocele surgery. The patient was admitted in June for acute kidney injury due to vomiting and diarrhea, hypertension, rectocele and GERD. She was discharged home with follow-up with Dr. Castillo and has subsequently seen by Dr. Manzo and underwent colonoscopy about 2 and half weeks ago which patient states she had a colon blockage in the upper part of the colon and could not get through. Patient complains of diarrhea and vomiting that started on Friday and got worse yesterday. She denies having any chest pain or shortness of breath. She denies any fever or chills. Today she states her abdomen is not bad. She did have a diarrhea stool today at around 10 AM that was non-bloody. KUB revealed persistent distal colonic obstruction likely improved from September 11. Patient underwent a barium enema study on September 01 as an outpatient which revealed severely distended transverse colon measuring up to 9.[address] the patient risk for perforation. Sigmoid diverticulosis with a 5 cm long tight stricture at the level of the mid sigmoid. Rectal contrast administration became painful for the patient due to the degree of rectal distention. Contrast eventually traverses the stricture but the exam is stopped before complete filling of the ascending colon and cecum due to patient pain. The stricture could be secondary to chronic diverticulitis or underlying constricting neoplasm. Chest x-ray done for NG tube placed that revealed the tube was not well characterized and recommended advancing. Patient was found to be afebrile, blood pressure 104/68, heart rate 85, pulse ox 95%. White count was normal at 6.6, hemoglobin 11.8. Electrolytes within normal limits, BUN 41 creatinine 1.57, blood sugar 125. NG tube was placed in the emergency center and patient was admitted to the [facility] floor and consult has been added for general surgery. Repeat chest x-ray reveals continuing dilatation of the colon, bibasilar atelectasis. Abdominal x-rays reveal continuing colonic ileus versus obstruction. 09/28 patient examined bedside denies any nausea but does endorses abdominal pain and discomfort. She is currently nothing by mouth for possible surgery tomorrow. Vitals are stable with a temperature of 98, pulse rate 72 and respiratory rate 16 blood pressure 120/69 saturating well on room air. Creatini ne 1.2) patient's baseline of 0.89-1 continue IV fluids. Small sips of water allowed with medication. 09/29 Patient in surgery could not be evaluated on rounds today 09/30 patient was seen and evaluated in ICU and is still intubated. Patient underwent sigmoid resection for large bowel obstruction on 09/29 but was reintubated after extubation in the recovery room. Patient had a low urine outputs and received fluid boluses blood pressure this morning is 113/48 on levo fed running at 3 mics per hour. Will give one bolus of 1 L of normal saline and additional bolus of 500 mL afterwards. Patient is responding appropriately and answering simple questions on propofol. Plan to extubate today. 10/01 patient examined in the endorses oriented answering questions appropriately. Appears to be tired and lethargic. Blood pressure on the lower side patient did receive a dose of albumin today. Lasix 20 IV once was given for decreased urine output. Urine output currently is on 5200 mL per hour. We will reduce IV fluidspatient appears swollen. Patient has not passed flutters with normal bowel sounds. ABG suggestive of hypercarbia secondary to opioid/ [employer] pump that has been going discontinue patient is currently on 2 L of oxygen. Leukocytosis is improved from 18-14. PH is 7.28 pCO2 of 54 oxygenation 114 patient did require BiPAP briefly this morning due to hypercarbia. Creatinine stable at 1.44 7.2 Albumin Is 2.1 10/02 patient examined at bedside is doing better answering questions a ppropriately appears to be tired and lethargic. Complaints of significant abdominal pain. Vitals are stable with a temp of 98 respiratory rate 16 blood pressure 126/90 on 2 L of oxygen saturating at 98%. Patient continued to appears edematous will give a dose of 20 mg of IV Lasix. Continue Zosyn. Patient continues to have fairly serial sanguinous drainage from the TARI around 105 in the past 6 hours patient limited transferred to [facility] with telemetry today PTOT consult Objective - Vital Signs Vital signs: Vital Signs Temp 98 F 10/02/18 12:00 Pulse 79 10/02/18 13:00 Resp 16 10/02/18 13:00 BP 126/90 10/02/18 13:00 Pulse Ox 98 10/02/18 13:00 Intake & Output 10/01/18 10/02/18 10/02/18 18:59 06:59 18:59 Intake Total 3098.087 4509 930 Output Total 1255 800 307 Balance 569.417 600 623 Weight 65 kg Intake: IV 1650 1400 930 Albumin Human 25% 50 ml 100 In Empty Bag 1 bag @ 50 mls/hr IVPB Q1H [facility] Rx#: [id number] Dextrose 5% in Water 1, 550 600 350 000 ml @ 50 mls/hr IV . Q23H [facility] with Sodium Bicarb (1 Meq/ml) 150 ml Rx#:[id number] Magnesium Sulfate-D5w Pmx 100 100 1 gm In Dextrose/Water 1 100ml.bag @ 100 mls/hr IVPB Q1H [facility] Rx#: [id number] Piperacillin-Tazobactam 3 100 200 .375 gm In Sodium Chloride 0.9% 100 ml @ 25 mls/hr IVPB Q8H [facility] Rx#: [id number] Potassium Chloride 10 meq 400 400 In Water For Injection 1 100ml.bag @ 100 mls/hr IVPB Q1HR [facility] Rx#: [id number] Sodium Chloride 0.9% 1, 600 80 000 ml @ 100 mls/hr IV . Q10H [facility] Rx#:[id number] metroNIDAZOLE-NS PMX 500 200 100 100 mg In Saline 1 100ml.bag @ 100 mls/hr IVPB Q8HR [facility] Rx#:[id number] Intake, IV Titration 174.417 Amount Ropivacaine 250 mg 174.417 Hydromorphone (Pf) 5 mg In Sodium Chloride 0.9% 200 ml @ Per Protocol EPIDURAL .Q0M [facility]N Rx#: [id number] Output: Drainage 35 65 Abdomen 35 65 Urine 1220 800 242 Other: Voiding Method Indwelling Catheter Indwelling Catheter Indwelling Catheter # Voids 2 # Bowel Movements 1 1 - Exam Review of system Constitutional: Denies chills, Denies fever, endorses lethargy Eyes: denies decreased vision, denies diplopia, denies discharge, denies pain Ears: decreased hearing Ears, nose, mouth and throat: Denies dental pain, Denies headache, Denies nasal discharge, Denies nose pain Cardiovascular: Denies chest pain, Denies decreased exercise tolerance, endorses edema, Denies high blood pressure, Denies irregular heart beat, Denies palpitations, Denies paroxysmal nocturnal dyspnea, Denies rapid heart beat, Denies shortness of breath Respiratory: Denies congestion, Denies cough, Denies cough with sputum, Denies dyspnea, Denies home oxygen, Denies wheezing Gastrointestinal: Endorses abdominal pain, Denies change in bowel habits, Denies coffee ground emesis, Denies early satiety, Denies excessive gas, Denies heartbu rn, Denies hematemesis, Denies hematochezia, Denies loss of appetite, Denies nausea, Denies vomiting Genitourinary: Denies dysuria, Denies flank pain, Denies kidney stones, Denies menorrhagia, Denies urgency, Denies urinary frequency Musculoskeletal, Denies limitation of motion, Denies morning stiffness, Denies muscle cramps Integumentary: Abdominal wound dressed with seepage seen on the dressing Neurological: Denies balance difficulties, Denies change in speech, Denies double vision, Denies gait dysfunction, Denies loss of vision, Denies motor disturbance, Denies numbness, Denies paralysis, Denies paresthesias, Denies seizures Psychiatric: Denies anxiety, Denies depression Endocrine: Denies excessive sweating, Denies excessive thirst, Denies high blood sugars, Denies palpitations Hematologic/Lymphatic: Denies easy bruising, Denies lymphadenopathy - Constitutional General appearance: cooperative, no acute distress - EENT Eyes: anicteric sclerae, PERRLA, normal appearance ENT: hearing grossly normal intubated - Neck Neck: no lymphadenopathy, normal ROM - Respiratory Respiratory: bilateral: CTA, negative: diminished, dullness, rales, rhonchi - Cardiovascular Rhythm: regular Heart sounds: normal: S1, S2 Abnormal Heart Sounds: no systolic murmur, no diastolic murmur, no rub, no S3 Gallop, no S4 Gallop, no click, no other - Gastrointestinal General gastrointestinal: normal bowel sounds, soft tender on palpation TARI drain in place wound covered with dressings with serous seepage - Integumentary Integumentary: no rash - Neurologic Neurologic: CNII-XII intact - Musculoskeletal Musculoskeletal: strength equal bilaterally - Psychiatric Psychiatric: A&O x's 3, appropriate affect - Labs CBC & Chem 7: 10/02/18 04:35 10/02/18 04:35 Labs: Abnormal Lab Results - Last 24 Hours (Table) 10/01/18 10/02/18 10/02/18 Range/Units 18:52 04:35 04:35 WBC 12.1 H (3.8-10.6) k/uL RBC 2.73 L (3.80-5.40) m/uL Hgb 7.5 L (11.4-16.0) gm/dL Hct 23.9 L (34.0-46.0) % RDW 16.6 H (11.5-15.5) % Potassium 3.1 L 3.3 L (3.5-5.1) mmol/L Chloride 108 H (98-107) mmol/L BUN 22 H (7-17) mg/dL Creatinine 1.40 H (0.52-1.04) mg/dL Glucose 117 H (74-99) mg/dL Calcium 7.1 L (8.4-10.2) mg/dL Assessment and Plan Plan: 1. Acute kidney injury secondary to vomiting and diarrhea. Hold IV fluids due to increased third spacing. Bicarb drip discontinued Avoid nephrotoxic agents. Lasix and potassium on hold. Recheck basic metabolic panel in the morning. Creatinine stable 2. Ileus versus colonic obstruction with history of stricture of the sigmoid colon on colonoscopy status post sigmoid resection and mobilization of the splenic flexure on 09/29. on Zosyn and Flagyl per pulmonary 3. Hypotension. resolved 4. Gastroesophageal reflux disease. Protonix 40 mg IV twice daily. 5. Rectocele, was previously worked out by physician in [place]. 6. DVT prophylaxis. Heparin subcu. 7 acute hypercarbic respiratory failure likely secondary to medications. [employer] pump patient is extubated currently on 2 L of oxygen 8 generalized weakness secondary to debility. PTOT consult Discharge plan: To be determined
--- NOTE | 2018-10-02 14:54 | P.PN ---
Subjective Progress Note Date: 10/02/18 Principal diagnosis: S/P sigmoid resection The patient was seen. She is tolerating a diet and has passed her swallow evaluation. Complaining of some incisional pain. Passing flatus and liquid stools since last night. Denies nausea or vomiting. Says she just doesn't feel well. Objective - Vital Signs Vital signs: Vital Signs Temp 98 F 10/02/18 12:00 Pulse 79 10/02/18 13:00 Resp 16 10/02/18 13:00 BP 126/90 10/02/18 13:00 Pulse Ox 98 10/02/18 13:00 Intake & Output 10/01/18 10/02/18 10/02/18 18:59 06:59 18:59 Intake Total 2597.943 7230 930 Output Total 1255 800 307 Balance 569.417 600 623 Weight 65 kg Intake: IV 1650 1400 930 Albumin Human 25% 50 ml 100 In Empty Bag 1 bag @ 50 mls/hr IVPB Q1H [facility] Rx#: [id number] Dextrose 5% in Water 1, 550 600 350 000 ml @ 50 mls/hr IV . Q23H [facility] with Sodium Bicarb (1 Meq/ml) 150 ml Rx#:[id number] Magnesium Sulfate-D5w Pmx 100 100 1 gm In Dextrose/Water 1 100ml.bag @ 100 mls/hr IVPB Q1H [facility] Rx#: [id number] Piperacillin-Tazobactam 3 100 200 .375 gm In Sodium Chloride 0.9% 100 ml @ 25 mls/hr IVPB Q8H [facility] Rx#: [id number] Potassium Chloride 10 meq 400 400 In Water For Injection 1 100ml.bag @ 100 mls/hr IVPB Q1HR [facility] Rx#: [id number] Sodium Chloride 0.9% 1, 600 80 000 ml @ 100 mls/hr IV . Q10H [facility] Rx#:[id number] metroNIDAZOLE-NS PMX 500 200 100 100 mg In Saline 1 100ml.bag @ 100 mls/hr IVPB Q8HR [facility] Rx#:[id number] Intake, IV Titration 174.417 Amount Ropivacaine 250 mg 174.417 Hydromorphone (Pf) 5 mg In Sodium Chloride 0.9% 200 ml @ Per Protocol EPIDURAL .Q0M [facility] Rx#: [id number] Output: Drainage 35 65 Abdomen 35 65 Urine 1220 800 242 Other: Voiding Method Indwelling Catheter Indwelling Catheter Indwelling Catheter # Voids 2 # Bowel Movements 1 1 - Constitutional Constitutional Comment(s): appears weak and uncomfortable General appearance: Present: cooperative, no acute distress - Respiratory Respiratory: bilateral: CTA, diminished (at the bases) - Cardiovascular Rhythm: regular - Gastrointestinal General gastrointestinal: Present: normal bowel sounds, soft, tenderness (incisi onal) Localized gastrointestinal: surgical scar: diffuse (dressing clean and dry, nicci is serosang.) - Labs CBC & Chem 7: 10/02/18 04:35 10/02/18 04:35 Labs: Abnormal Lab Results - Last 24 Hours (Table) 10/01/18 10/02/18 10/02/18 Range/Units 18:52 04:35 04:35 WBC 12.1 H (3.8-10.6) k/uL RBC 2.73 L (3.80-5.40) m/uL Hgb 7.5 L (11.4-16.0) gm/dL Hct 23.9 L (34.0-46.0) % RDW 16.6 H (11.5-15.5) % Potassium 3.1 L 3.3 L (3.5-5.1) mmol/L Chloride 108 H (98-107) mmol/L BUN 22 H (7-17) mg/dL Creatinine 1.40 H (0.52-1.04) mg/dL Glucose 117 H (74-99) mg/dL Calcium 7.1 L (8.4-10.2) mg/dL Assessment and Plan (1) Stricture of sigmoid colon Current Visit: Yes Status: Acute Code(s): K56.699 - OTHER INTESTNL OBST UNSP TO PARTIAL VERSUS COMPLETE OBST SNOMED Code(s): 3275889 (2) Colonic obstruction Current Visit: Yes Status: Acute Code(s): K56.609 - UNSP INTESTNL OBST, UNSP TO PARTIAL VERSUS COMPLETE OBST SNOMED Code(s): 32070696 (3) Respiratory failure Current Visit: Yes Status: Acute Code(s): J96.90 - RESPIRATORY FAILURE, UNSP, UNSP W HYPOXIA OR HYPERCAPNIA SNOMED Code(s): 939048627 Plan: Increase activity. Encourage pulmonary toilet. Encourage oral intake. Monitor wound. Bowel function is returning normally for someone with a large bowel obstruction. There was no cancer causing the sigmoid colon stricture. Progressing slowly. Will adjust pain medications
[2018-10-02] MEDS ORDERED: traMADol 50 MG TAB PO PRN ×2 (14:55)
--- NOTE | 2018-10-02 15:11 | P.PN ---
Subjective Progress Note Date: 10/02/18 Principal diagnosis: Sigmoid colon Bowel obstruction, Metabolic acidosis, leukocytosis, stage III renal failure hyperkalemia , intravascular volume depletion and dehydration October 02 2018, patient seen eval examined during the rounds she is awake and alert however complaining of abdominal discomfort and pain she is getting morphine every 4 hour as needed patient has some loose stool late last night but diarrhea has resolved and supplies today 1 and loosely formed stool is present, still short of breath but not to extend before mental status has significantly improved, off of the epidural, labs reviewed medications reviewed chest x-ray still showed right-sided pleural effusion patient is gently being rehydrated also was on bicarb drip which has been discontinued normal saline 50 mL an hour as been given, white cell count is down to 12,100 hemoglobin have been stable 7 .5, potassium is 3.3 BUN/creatinine is 21.4, patient is kept overnight in ICU as she is very weak and still abdominal discomfort and pain and physical therapy have not initiated yet, patient has been evaluated by speech and swallow patient has been cleared for diet, care plan discussed with Dr. Manzo 10/01/2018, patient seen and evaluated examined during the rounds labs reviewed medications reviewed care plan discussed with the staff at length critical care time spent 35 minutes. And has been on supplemental oxygen this morning and gases revealed hypercapnia along with metabolic and respiratory acidosis patient is somnolent on epidural pump, labs reviewed medications reviewed magnesium is very low hemoglobin is low but stable, respiratory metabolic acidosis has been seen patient is almost finishing bicarb drip, chest x-ray showed right-sided effusion with basal left subsegmental atelectasis will give small dose of Lasix DC the epidural patient is suspected to have hypoventilation and related hypoxia once she is awake enough and then will DC the BiPAP, patient does respond to verbal stimuli denies any shortness of breath and chest pain denies any abdominal pain or discomfort 09/30/2018, patient seen and evaluated examined during the rounds labs reviewed medications reviewed care plan discussed with the staff at length patient has been on full ventilator support with assist control of 14 tidal volume of 400 PEEP of 5 and oxygen of 40% patient has been placed on CPAP of 5 pressure support of 5 and arterial blood gases were checked patient is still have metabolic acidosis but weaning parameters are adequate we'll proceed with extubation due to metabolic acidosis patient will be started on bicarb drip 1 amp of bicarb has been given, patient will be started on broad-spectrum antibiotics with Zosyn and Flagyl as well, white cell count noted to be elevated of 18,000 from 10,000 yesterday, has received multiple fluid boluses however is been off of vasopressors and propofol has been tapered and discontinued patient remains on [employer] pump, chest x-ray evaluated continue show basal atelectasis likely due to intra-abdominal process with stable tubing This patient seen eval [facility] recovery area she underwent exploratory laparotomy with sigmoid colon resection for sigmoid colon obstruction just due to stricture. Patient is on ventilator could not be weaned she is still somnolent and not arousable still alive under affect of anesthetic agent likely will be placed and kept in ICU on ventilator with full ventilator support with plan of screening for tomorrow and possible extubation Review of the medical records revealed that patient is an 83-year-old female patient of Dr. Castillo with past medical history of hypertension, gastroesophageal reflux disease, rectocele. Patient was recently hospitalized in June 2018 and son gave this history of ongoing problems with rectocele. They were recently traveling and patient was admitted to [facility] in [place] and was treated that time for colitis with 2 antibiotics but then realized it was not colitis. She has since returned home and [facility] been subsequently referred to a surgeon in [place] of rectocele surgery. The patient was admitted in June for acute kidney injury due to vomiting and diarrhea, hypertension, rectocele and GERD. She was discharged home with follow-up with Dr. Castillo and has subsequently seen by Dr. Manzo and underwent colonoscopy about 2 and half weeks ago which patient states she had a colon blockage in the upper part of the colon and could not get through. Patient complains of diarrhea and vomiting that started on 4 days ago and got worse aggressively on the day of admission. There is no history of chest pain or shortness of breath, fever or chills. Due to persistent problem associated abdominal discomfort and pain patient was taken to OR earlier today underwent resection as noted and appears to be not ready for weaning and extubation Objective - Vital Signs Vital signs: Vital Signs Temp 98 F 10/02/18 12:00 Pulse 93 10/02/18 14:00 Resp 19 10/02/18 14:00 BP 113/49 10/02/18 14:00 Pulse Ox 97 10/02/18 14:00 Intake & Output 10/01/18 10/02/18 10/02/18 18:59 06:59 18:59 Intake Total 0467.045 2628 1150 Output Total 1255 800 412 Balance 569.417 600 738 Weight 65 kg Intake: IV 1650 1400 1000 Albumin Human 25% 50 ml 100 In Empty Bag 1 bag @ 50 mls/hr IVPB Q1H [facility] Rx#: [id number] Dextrose 5% in Water 1, 550 600 400 000 ml @ 50 mls/hr IV . Q23H [facility] with Sodium Bicarb (1 Meq/ml) 150 ml Rx#:[id number] Magnesium Sulfate-D5w Pmx 100 100 1 gm In Dextrose/Water 1 100ml.bag @ 100 mls/hr IVPB Q1H [facility] Rx#: [id number] Piperacillin-Tazobactam 3 100 200 .375 gm In Sodium Chloride 0.9% 100 ml @ 25 mls/hr IVPB Q8H [facility] Rx#: [id number] Potassium Chloride 10 meq 400 400 In Water For Injection 1 100ml.bag @ 100 mls/hr IVPB Q1HR [facility] Rx#: [id number] Sodium Chloride 0.9% 1, 600 100 000 ml @ 100 mls/hr IV . Q10H [facility] Rx#:[id number] metroNIDAZOLE-NS PMX 500 200 100 100 mg In Saline 1 100ml.bag @ 100 mls/hr IVPB Q8HR [facility] Rx#:[id number] Intake, IV Titration 174.417 Amount Ropivacaine 250 mg 174.417 Hydromorphone (Pf) 5 mg In Sodium Chloride 0.9% 200 ml @ Per Protocol EPIDURAL .Q0M [facility] Rx#: [id number] Oral 150 Output: Drainage 35 140 Abdomen 35 140 Urine 1220 800 272 Other: Voiding Method Indwelling Catheter Indwelling Catheter Indwelling Catheter # Voids 2 # Bowel Movements 1 1 - Exam Awake alert slightly somnolent in between still on epidural - Constitutional General appearance: average body habitus, disheveled, no acute distress - EENT Eyes: PERRLA Ears: bilateral: normal - Neck Neck: normal ROM Carotids: bilateral: upstroke normal, bruit absent Thyroid: bilateral: normal size - Respiratory Respiratory: bilateral: CTA - Cardiovascular Rhythm: regular Heart sounds: normal: S1, S2 - Gastrointestinal General gastrointestinal: absent bowel sounds Neuro alert and awake moving all 4 extremity - Labs CBC & Chem 7: 10/02/18 04:35 10/02/18 04:35 Labs: Abnormal Lab Results - Last 24 Hours (Table) 10/01/18 10/02/18 10/02/18 Range/Units 18:52 04:35 04:35 WBC 12.1 H (3.8-10.6) k/uL RBC 2.73 L (3.80-5.40) m/uL Hgb 7.5 L (11.4-16.0) gm/dL Hct 23.9 L (34.0-46.0) % RDW 16.6 H (11.5-15.5) % Potassium 3.1 L 3.3 L (3.5-5.1) mmol/L Chloride 108 H (98-107) mmol/L BUN 22 H (7-17) mg/dL Creatinine 1.40 H (0.52-1.04) mg/dL Glucose 117 H (74-99) mg/dL Calcium 7.1 L (8.4-10.2) mg/dL Assessment and Plan Assessment: Respiratory failure, postoperative expectant related to anesthetic agent and epidural Bilateral pleural effusion right more than left, likely related to protein calorie malnourishment Hypercapnic hypoxic respiratory failure related to hypoventilation and metabolic and respiratory acidosis fairly stable patient is now being taken off of bicarb drip Sigmoid colon obstruction status post resection Bilateral basal atelectasis Sepsis Metabolic acidosis Dehydration and intravascular volume depletion Leukocytosis likely related to postoperative stress Electrolyte imbalance with severe hypomagnesemia and hypokalemia on replacement protocol Plan: Gentle rehydration and intermittent fluid boluses will give albumin as needed DC bicarb drip Lasix 20 mg IV 1 Epidural analgesia can be tapered and discontinued it We'll change the BiPAP to as needed patient has been doing on supplemental oxygen Replace potassium, magnesium and electrolytes Repeat labs and x-ray tomorrow Broad-spectrum antibiotics with Zosyn 3.375 every 8 hourly and Flagyl 500 mg IV every 8 hourly Speech evaluation for depressed swallowing, continued to improve patient has been started on diet Further recommendations pending plan of care as per clinical response of the patient Pain management with morphine when necessary once epidural is off Critical care time 35 minutes Time with Patient: Greater than 30
[2018-10-02 15:40] LABS: Magnesium 2.2 mg/dL (1.6-2.3); Potassium 3.8 mmol/L (3.5-5.1)
[2018-10-02] MEDS: SODIUM CHLORIDE 0.9% 1,000 ML IV SCH (15:54)
[2018-10-02] MEDS ORDERED: POTASSIUM CHLORIDE ER 20 MEQ TAB.ER PO SCH (19:00)
[2018-10-03] MEDS: PIPERACILLIN-TAZOBACTAM 3.375 GM in SODIUM CHLORIDE 0.9% 100 ML IVPB SCH ×3 (04:19→21:22)
[2018-10-03 05:01] LABS: Anisocytosis Slight; HCT 25.3 % (34.0-46.0); HGB 7.7 gm/dL (11.4-16.0); Hypochromasia Moderate; MCH 26.9 pg (25.0-35.0); MCHC 30.4 g/dL (31.0-37.0); MCV 88.7 fL (80.0-100.0); Mean Platelet Volume 7.9; Platelet Count 163 k/uL (150-450); RBC 2.85 m/uL (3.80-5.40); RDW 16.6 % (11.5-15.5); WBC 10.3 k/uL (3.8-10.6)
[2018-10-03 05:10] LABS: Calcium 7.1 mg/dL (8.4-10.2); Magnesium 1.8 mg/dL (1.6-2.3); Potassium 3.8 mmol/L (3.5-5.1)
--- NOTE | 2018-10-03 07:47 | XR ---
EXAMINATION TYPE: XR chest 1V portable DATE OF EXAM: 10/03/2018 COMPARISON: 10/02/2018 HISTORY: Shortness of breath TECHNIQUE: Single frontal view of the chest is obtained. FINDINGS: There are low lung volumes with blunting the costophrenic angles and perihilar opacities. Atelectasis is also seen at the left costophrenic angle. Cardiomediastinal silhouette is overall obsc ured. Osseous structures are grossly intact. IMPRESSION: Similar hypoventilatory lungs, trace pleural effusions, and bibasilar airspace disease. G iven the hypoventilatory lungs airspace disease may represent atelectasis although pneumonia is possi ble in the proper clinical setting. Underlying venous congestion not excluded. Findings stable.
[2018-10-03] MEDS: MAGNESIUM SULFATE-D5W PMX 1 GM in DEXTROSE/WATER 1 100ML.BAG IVPB SCH ×2 (08:10→10:08)
[2018-10-03] MEDS: metroNIDAZOLE-NS PMX 500 MG in SALINE 1 100ML.BAG IVPB SCH (08:22)
[2018-10-03] MEDS: PANTOPRAZOLE 40 MG/10 ML VIAL IVP SCH (08:27)
[2018-10-03] MEDS: HEPARIN SODIUM,PORCINE 5,000 UNIT/ML 1 ML VIAL SQ SCH ×2 (08:27→21:23)
[2018-10-03] MEDS: POTASSIUM CHLORIDE ER 20 MEQ TAB.ER PO SCH (08:28)
[2018-10-03] MEDS: FERROUS SULFATE 325 MG TAB PO SCH (08:28)
[2018-10-03] MEDS: SODIUM CHLORIDE 0.9% 1,000 ML IV SCH (11:16)
--- NOTE | 2018-10-03 11:28 | P.PN ---
Subjective Progress Note Date: 10/03/18 Principal diagnosis: Sigmoid colon Bowel obstruction, Metabolic acidosis, leukocytosis, stage III renal failure hyperkalemia , intravascular volume depletion and dehydration 10/03/2018, patient seen eval reexamined during the rounds labs reviewed medications reviewed she sitting upright on the bed still have intermittent loose stools, denies any chest pain or shortness of breath she is on 2 L nasal cannula breathing comfortably gently being hydrated 50 mL an hour a bilateral pleural effusion appears to have improved still have some pulmonary vascular congestion patient is moving out to [facility] October 02 2018, patient seen eval examined during the rounds she is awake and alert however complaining of abdominal discomfort and pain she is getting morphine every 4 hour as needed patient has some loose stool late last night but diarrhea has resolved and supplies today 1 and loosely formed stool is present, still short of breath but not to extend before mental status has significantly improved, off of the epidural, labs reviewed medications reviewed chest x-ray s till showed right-sided pleural effusion patient is gently being rehydrated also was on bicarb drip which has been discontinued normal saline 50 mL an hour as been given, white cell count is down to 12,100 hemoglobin have been stable 7.5, potassium is 3.3 BUN/creatinine is 21.4, patient is kept overnight in ICU as she is very weak and still abdominal discomfort and pain and physical therapy have n ot initiated yet, patient has been evaluated by speech and swallow patient has been cleared for diet, care plan discussed with Dr. Manzo 10/01/2018, patient seen and evaluated examined during the rounds labs reviewed medications reviewed care plan discussed with the staff at length critical care time spent 35 minutes. And has been on supplemental oxygen this morning and gases revealed hypercapnia along with metabolic and respiratory acidosis patient is somnolent on epidural pump, labs reviewed medications reviewed magnesium is very low hemoglobin is low but stable, respiratory metabolic acidosis has been seen patient is almost finishing bicarb drip, chest x-ray showed right-sided effusion with basal left subsegmental atelectasis will give small dose of Lasix DC the epidural patient is suspected to have hypoventilation and related hypoxia once she is awake enough and then will DC the BiPAP, patient does respond to verbal stimuli denies any shortness of breath and chest pain denies any abdominal pain or discomfort 09/30/2018, patient seen and evaluated examined during the rounds labs reviewed medications reviewed care plan discussed with the staff at length patient has been on full ventilator support with assist control of 14 tidal volume of 400 PEEP of 5 and oxygen of 40% patient has been placed on CPAP of 5 pressure support of 5 and arterial blood gases were checked patient is still have metabolic acidosis but weaning parameters are adequate we'll proceed with extubation due to metabolic acidosis patient will be started on bicarb drip 1 amp of bicarb has been given, patient will be started on broad-spectrum antibiotics with Zosyn and Flagyl as well, white cell count noted to be elevated of 18,000 from 10,000 yesterday, has received multiple fluid boluses howev er is been off of vasopressors and propofol has been tapered and discontinued patient remains on SHACTOR pump, chest x-ray evaluated continue show basal atelectasis likely due to intra-abdominal process with stable tubing This patient seen eval [facility] recovery area she underwent exploratory laparotomy with sigmoid colon resection for sigmoid colon obstruction just due to stricture. Patient is on ventilator could not be weaned she is still somnolent and not arousable still alive under affect of anesthetic agent likely will be placed and kept in ICU on ventilator with full ventilator support with plan of screening for tomorrow and possible extubation Review of the medical records revealed that patient is an 83-year-old female patient of Dr. Castillo with past medical history of hypertension, gastroesophageal reflux disease, rectocele. Patient was recently hospitalized in June 2018 and son gave this history of ongoing problems with rectocele. They were recently traveling and patient was admitted to [facility] in [place] and was treated that time for colitis with 2 antibiotics but then realized it was not colitis. She has since returned home and has seen Dr. Wolff at [facility] has been subsequently referred to a surgeon in [place] of rectocele surgery. The patient was admitted in June for acute kidney injury due to vomiting and diarrhea, hypertension, rectocele and GERD. She was discharged home with follow-up with Dr. Castillo and has subsequently seen by Dr. Manzo and underwent colonoscopy about 2 and half weeks ago which patient states she had a colon blockage in the upper part of the colon and could not get through. Patient complains of diarrhea and vomiting that started on 4 days ago and got worse aggressively on the day of admission. There is no history of chest pain or shortness of breath, fever or chills. Due to persistent problem associated abdominal discomfort and pain patient was taken to OR earlier today underwent resection as noted and appears to be not ready for weaning and extubation Objective - Vital Signs Vital signs: Vital Signs Temp 98.9 F 10/03/18 08:00 Pulse 81 10/03/18 11:00 Resp 20 10/03/18 11:00 BP 114/56 10/03/18 11:00 Pulse Ox 98 10/03/18 11:00 Intake & Output 10/02/18 10/03/18 10/03/18 18:59 06:59 18:59 Intake Total 1450 900 250 Output Total 1152 1070 240 Balance 298 -170 10 Weight 65 kg Intake: IV 1300 900 250 Dextrose 5% in Water 1, 500 000 ml @ 50 mls/hr IV . Q23H [facility] with Sodium Bicarb (1 Meq/ml) 150 ml Rx#:[id number] Piperacillin-Tazobactam 3 200 .375 gm In Sodium Chloride 0.9% 100 ml @ 25 mls/hr IVPB Q8H [facility] Rx#: [id number] Potassium Chloride 10 meq 400 In Water For Injection 1 100ml.bag @ 100 mls/hr IVPB Q1HR [facility] Rx#: [id number] Sodium Chloride 0.9% 1, 100 000 ml @ 100 mls/hr IV . Q10H [facility] Rx#:[id number] Sodium Chloride 0.9% 1, 100 600 250 000 ml @ 50 mls/hr IV . Q20H [facility] Rx#:[id number] metroNIDAZOLE-NS PMX 500 200 100 mg In Saline 1 100ml.bag @ 100 mls/hr IVPB Q8HR [facility] Rx#:[id number] Oral 150 Output: Drainage 190 Abdomen 190 Urine 962 1070 240 Other: Voiding Method Indwelling Catheter Indwelling Catheter Indwelling Catheter # Voids 2 # Bowel Movements 1 3 - Exam Awake alert slightly somnolent in between still on epidural - Constitutional General appearance: average body habitus, disheveled, no acute distress - EENT Eyes: PERRLA Ears: bilateral: normal - Neck Neck: normal ROM Carotids: bilateral: upstroke normal, bruit absent Thyroid: bilateral: normal size - Respiratory Respiratory: bilateral: CTA - Cardiovascular Rhythm: regular Heart sounds: normal: S1, S2 - Gastrointestinal General gastrointestinal: absent bowel sounds Neuro alert and awake moving all 4 extremity - Labs CBC & Chem 7: 08/10/19 04:32 10/03/18 04:32 Labs: Abnormal Lab Results - Last 24 Hours (Table) 10/03/18 10/03/18 Range/Units 04:32 04:32 RBC 2.85 L (3.80-5.40) m/uL Hgb 7.7 L (11.4-16.0) gm/dL Hct 25.3 L (34.0-46.0) % MCHC 30.4 L (31.0-37.0) g/dL RDW 16.6 H (11.5-15.5) % BUN 18 H (7-17) mg/dL Creatinine 1.33 H (0.52-1.04) mg/dL Glucose 104 H (74-99) mg/dL Calcium 7.1 L (8.4-10.2) mg/dL Assessment and Plan Assessment: Respiratory failure, postoperative expectant related to anesthetic agent and epidural Bilateral pleural effusion right more than left, likely related to protein june orie malnourishment Hypercapnic hypoxic respiratory failure related to hypoventilation and metabolic and respiratory acidosis fairly stable patient is now being taken off of bicarb drip Sigmoid colon obstruction status post resection Bilateral basal atelectasis Sepsis Metabolic acidosis Dehydration and intravascular volume depletion Leukocytosis likely related to postoperative stress Electrolyte imbalance with severe hypomagnesemia and hypokalemia on replacement protocol Plan: Gentle rehydration We'll change the BiPAP to as needed patient has been doing on supplemental oxygen Replace potassium, magnesium and electrolytes Repeat labs and x-ray tomorrow Broad-spectrum antibiotics with Zosyn 3.375 every 8 hourly and Flagyl 500 mg IV every 8 hourly depressed swallowing, continued to improve patient has been started on diet Further recommendations pending plan of care as per clinical response of the patient Pain management with morphine when necessary once epidural is off And be moved out of the ICU Time with Patient: Greater than 30
--- NOTE | 2018-10-03 12:09 | P.PN ---
Subjective Progress Note Date: 10/03/18 his is an 83-year-old female patient of Dr. Castillo with past medical history of hypertension, gastroesophageal reflux disease, rectocele. Patient was recently hospitalized in June 2018 and son gave this history of ongoing problems with rectocele. They were recently traveling and patient was admitted to [facility] in [place] and was treated that time for colitis with 2 antibiotics but then realized it was not colitis. She has since returned home and has [facility] has been subsequently referred to a surgeon in [place] of rectocele surgery. The patient was admitted in June for acute kidney injury due to vomiting and diarrhea, hypertension, rectocele and GERD. She was discharged home with follow-up with Dr. Castillo and has subsequently seen by Dr. Manzo and underwent colonoscopy about 2 and half weeks ago which patient states she had a colon blockage in the upper part of the colon and could not get through. Patient complains of diarrhea and vomiting that started on Friday and got worse yesterday. She denies having any chest pain or shortness of breath. She denies any fever or chills. Today she states her abdomen is not bad. She did have a diarrhea stool today at around 10 AM that was non-bloody. KUB revealed persistent distal colonic obstruction likely improved from September 11. Patient underwent a barium enema study on September 01 as an outpatient which revealed severely distended transverse colon measuring up to 9.[address] the patient risk for perforation. Sigmoid diverticulosis with a 5 cm long tight stricture at the level of the mid sigmoid. Rectal contrast administration became painful for the patient due to the degree of rectal distention. Contrast eventually traverses the stricture but the exam is stopped before complete filling of the ascending colon and cecum due to patient pain. The stricture could be secondary to chronic diverticulitis or underlying constricting neoplasm. Chest x-ray done for NG tube placed that revealed the tube was not well characterized and recommended advancing. Patient was found to be afebrile, blood pressure 104/68, heart rate 85, pulse ox 95%. White count was normal at 6.6, hemoglobin 11.8. Electrolytes within normal limits, BUN 41 creatinine 1.57, blood sugar 125. NG tube was placed in the emergency center and patient was admitted to the [facility] floor and consult has been added for general surgery. Repeat chest x-ray reveals continuing dilatation of the colon, bibasilar atelectasis. Abdominal x-rays reveal continuing colonic ileus versus obstruction. 09/28 patient examined bedside denies any nausea but does endorses abdominal pain and discomfort. She is currently nothing by mouth for possible surgery tomorrow. Vitals are stable with a temperature of 98, pulse rate 72 and respiratory rate 16 blood pressure 120/69 saturating well on room air. Creatinine 1.2) patient's baseline of 0.89-1 continue IV fluids. Small sips of water allowed with medication. 09/29 Patient in surgery could not be evaluated on rounds today 09/30 patient was seen and evaluated in ICU and is still intubated. Patient underwent sigmoid resection for large bowel obstruction on 09/29 but was reintubated after extubation in the recovery room. Patient had a low urine outputs and received fluid boluses blood pressure this morning is 113/48 on levo fed running at 3 mics per hour. Will give one bolus of 1 L of normal saline and additional bolus of 500 mL afterwards. Patient is responding appropriately and answering simple questions on propofol. Plan to extubate today. 10/01 patient examined in the endorses oriented answering questions appropriately. Appears to be tired and lethargic. Blood pressure on the lower side patient did receive a dose of albumin today. Lasix 20 IV once was given for decreased urine output. Urine output currently is on 5200 mL per hour. We will reduce IV fluidspatient appears swollen. Patient has not passed flutters with normal bowel sounds. ABG suggestive of hypercarbia secondary to opioid/ FLOOR SWEEPER pump that has been going discontinue patient is currently on 2 L of oxygen. Leukocytosis is improved from 18-14. PH is 7.28 pCO2 of 54 oxygenation 114 patient did require BiPAP briefly this morning due to hypercarbia. Creatinine stable at 1.44 7.2 Albumin Is 2.1 10/02 patient examined at bedside is doing better answering questions evan ropriately appears to be tired and lethargic. Complaints of significant abdominal pain. Vitals are stable with a temp of 98 respiratory rate 16 blood pressure 126/90 on 2 L of oxygen saturating at 98%. Patient continued to appears edematous will give a dose of 20 mg of IV Lasix. Continue Zosyn. Patient continues to have fairly serial sanguinous drainage from the TARI around 105 in the past 6 hours patient limited transferred to [facility] with telemetry today PTOT consult 10/03: Patient is examined sitting up in the chair. Patient complains of fatigue. Patient is able to answer questions appropriately. Patient does not have any complaints of significant abdominal pain at this time. Vital signs are stable pulse rate 81, respirations 20, blood pressure 03/09/1954, pulse ox a 98% on 2 L. Patient continues to have indwelling catheter in place with clear urine noted urine output of 40-50 ML's per hour. TARI drain is in place with minimal output. Review Of Systems: Constitutional: No fever, no chills, no night sweats. No weight change. Reports fatigue. No weakness or lethargy. No daytime sleepiness. EENT: No headache. No blurred vision or double vision, no loss of vision. No loss of Hearing, no ringing in the ears, no dizziness. No nasal drainage or congestion. No epistaxis. No sore throat. Lungs: No shortness of breath, cough, no sputum production. No wheezing. Cardiovascular: No chest pain, no lower extremity edema. No palpitations. No paroxysmal nocturnal dyspnea. No orthopnea. No lightheadedness or dizziness. No syncopal episodes. Abdominal: Reports abdominal discomfort. No nausea, vomiting. no diarrhea. No constipation. No bloody or tarry stools. improved loss of appetite. Genitourinary: No dysuria, increased frequency, urgency. No urinary retention. Musculoskeletal: No myalgias. No muscle weakness, no gait dysfunction, no frequent falls. No back pain. No neck pain. Integumentary: No wounds, no lesions. No rash or pruritus. No unusual bruising. No change in hair or nails. Neurologic: No aphasia. No facial droop. No change in mentation. No head injury. No headache. No paralysis. No paresthesia. Psychiatric: No depression. No anxiety. No mood swings. Endocrine: No abnormal blood sugars. No weight change. No excessive sweating or thirst. Objective - Vital Signs Vital signs: Vital Signs Temp 98.9 F 10/03/18 08:00 Pulse 81 10/03/18 11:00 Resp 20 10/03/18 11:00 BP 114/56 10/03/18 11:00 Pulse Ox 98 10/03/18 11:00 Intake & Output 0810/03/18 10/03/18 18:59 06:59 18:59 Intake Total 1450 900 250 Output Total 1152 1070 240 Balance 298 -170 10 Weight 65 kg Intake: IV 1300 900 250 Dextrose 5% in Water 1, 500 000 ml @ 50 mls/hr IV . Q23H [facility] with Sodium Bicarb (1 Meq/ml) 150 ml Rx#:[id number] Piperacillin-Tazobactam 3 200 .375 gm In Sodium Chloride 0.9% 100 ml @ 25 mls/hr IVPB Q8H [facility] Rx#: [id number] Potassium Chloride 10 meq 400 In Water For Injection 1 100ml.bag @ 100 mls/hr IVPB Q1HR [facility] Rx#: [id number] Sodium Chloride 0.9% 1, 100 000 ml @ 100 mls/hr IV . Q10H [facility] Rx#:[id number] Sodium Chloride 0.9% 1, 100 600 250 000 ml @ 50 mls/hr IV . Q20H [facility] Rx#:[id number] metroNIDAZOLE-NS PMX 500 200 100 mg In Saline 1 100ml.bag @ 100 mls/hr IVPB Q8HR [facility] Rx#:[id number] Oral 150 Output: Drainage 190 Abdomen 190 Urine 962 1070 240 Other: Voiding Method Indwelling Catheter Indwelling Catheter Indwelling Catheter # Voids 2 # Bowel Movements 1 3 - Exam General Appearance: Alert, cooperative, no distress, appears stated age. Neck HEENT: Supple, no lymphadenopathy, no thyroid enlargement, no carotid bruits. Lungs: Clear to auscultation without crackles or wheezes, diminished at bases, no rhonchi, no deformity. Chest Wall: Chest wall normal expansion with deep inspiration no tenderness and no deformity was found on exam, no costochondral pain or discomfort. Heart: Regular rate and rhythm, S1, S2 normal, no murmur, rub or gallop. Back: Symmetric, no curvature, ROM normal, no CVA tenderness. Abdomen: Soft, tender incision site, TARI drain in place wound covered with dressing, no rebound or rigidity, no hepatosplenomegaly. Extremities: Extremities normal, atraumatic, no cyanosis or edema. Pulses: 2+ and symmetric. Skin: Skin color, texture, tugor normal, no rashes or lesions. Neurologic: Alert oriented x3 cranial nerves II through XII intact, no motor deficit - Labs CBC & Chem 7: 10/03/18 04:32 10/03/18 04:32 Labs: Abnormal Lab Results - Last 24 Hours (Table) 10/03/18 10/03/18 Range/Units 04:32 04:32 RBC 2.85 L (3.80-5.40) m/uL Hgb 7.7 L (11.4-16.0) gm/dL Hct 25.3 L (34.0-46.0) % MCHC 30.4 L (31.0-37.0) g/dL RDW 16.6 H (11.5-15.5) % BUN 18 H (7-17) mg/dL Creatinine 1.33 H (0.52-1.04) mg/dL Glucose 104 H (74-99) mg/dL Calcium 7.1 L (8.4-10.2) mg/dL Assessment and Plan Plan: 1. Acute kidney injury secondary to vomiting and diarrhea. Hold IV fluids due to increased third spacing. Bicarb drip discontinued Avoid nephrotoxic agents. Lasix and potassium on hold. Recheck basic metabolic panel in the morning. Creatinine stable. Continue to replace potassium and magnesium as needed per protocol 2. Ileus versus colonic obstruction with history of stricture of the sigmoid colon on colonoscopy status post sigmoid resection and mobilization of the splenic flexure on 09/29. on Zosyn and Flagyl per pulmonary 3. Hypotension. resolved 4. Gastroesophageal reflux disease. Protonix 40 mg IV twice daily. 5. Rectocele, was previously worked out by physician in [place]. 6. acute hypercarbic respiratory failure likely secondary to medications. Currently on 2 L of O2, Ultram given as needed for pain 7. generalized weakness secondary to debility. PT/OT consult 8. Daytime fatigue. Melatonin 6 mg by mouth at bedtime 9. DVT prophylaxis. Heparin subcu. 10. GI prophylaxis. Continue with Protonix Discharge plan: Minimal of 2 nights day Impression and plan of care have been directed as dictated by the signing physician. Fabiola Dia nurse practitioner acting as scribe for signing physician.
--- NOTE | 2018-10-03 12:41 | P.PN ---
Subjective Progress Note Date: 10/03/18 Principal diagnosis: S/P sigmoid resection The patient is status post sigmoid colectomy due to diverticulitis with stricture. She is doing better today. Denies any chest pain or shortness of breath. Pain is under better control. No nausea or vomiting. Tolerating a diet. Objective - Vital Signs Vital signs: Vital Signs Temp 97.9 F 10/03/18 12:00 Pulse 85 10/03/18 12:00 Resp 22 10/03/18 12:00 BP 120/62 10/03/18 12:00 Pulse Ox 96 10/03/18 12:00 Intake & Output 10/02/18 10/03/18 10/03/18 18:59 06:59 18:59 Intake Total 1450 900 300 Output Total 1152 1070 275 Balance 298 -170 25 Weight 65 kg Intake: IV 1300 900 300 Dextrose 5% in Water 1, 500 000 ml @ 50 mls/hr IV . Q23H [facility] with Sodium Bicarb (1 Meq/ml) 150 ml Rx#:[id number] Piperacillin-Tazobactam 3 200 .375 gm In Sodium Chloride 0.9% 100 ml @ 25 mls/hr IVPB Q8H [facility] Rx#: [id number] Potassium Chloride 10 meq 400 In Water For Injection 1 100ml.bag @ 100 mls/hr IVPB Q1HR [facility] Rx#: [id number] Sodium Chloride 0.9% 1, 100 000 ml @ 100 mls/hr IV . Q10H [facility] Rx#:[id number] Sodium Chloride 0.9% 1, 100 600 300 000 ml @ 50 mls/hr IV . Q20H [facility] Rx#:[id number] metroNIDAZOLE-NS PMX 500 200 100 mg In Saline 1 100ml.bag @ 100 mls/hr IVPB Q8HR [facility] Rx#:[id number] Oral 150 Output: Drainage 190 Abdomen 190 Urine 962 1070 275 Other: Voiding Method Indwelling Catheter Indwelling Catheter Indwelling Catheter # Voids 2 # Bowel Movements 1 3 - Constitutional General appearance: Present: cooperative, no acute distress - Gastrointestinal General gastrointestinal: Present: soft - Labs CBC & Chem 7: 10/03/18 04:32 10/03/18 04:32 Labs: Abnormal Lab Results - Last 24 Hours (Table) 10/03/18 10/03/18 Range/Units 04:32 04:32 RBC 2.85 L (3.80-5.40) m/uL Hgb 7.7 L (11.4-16.0) gm/dL Hct 25.3 L (34.0-46.0) % MCHC 30.4 L (31.0-37.0) g/dL RDW 16.6 H (11.5-15.5) % BUN 18 H (7-17) mg/dL Creatinine 1.33 H (0.52-1.04) mg/dL Glucose 104 H (74-99) mg/dL Calcium 7.1 L (8.4-10.2) mg/dL Assessment and Plan (1) Stricture of sigmoid colon Current Visit: Yes Status: Acute Code(s): K56.699 - OTHER INTESTNL OBST UNSP TO PARTIAL VERSUS COMPLETE OBST SNOMED Code(s): 7389250 (2) Colonic obstruction Current Visit: Yes Status: Acute Code(s): K56.609 - UNSP INTESTNL OBST, UNSP TO PARTIAL VERSUS COMPLETE OBST SNOMED Code(s): 21925204 (3) Respiratory failure Current Visit: Yes Status: Acute Code(s): J96.90 - RESPIRATORY FAILURE, UNSP, UNSP W HYPOXIA OR HYPERCAPNIA SNOMED Code(s): 215020440 Plan: Surgically stable for transfer to medical/surgical floor. Increase diet and activity as tolerated. Progressing slowly.
[2018-10-03] MEDS: MULTIVITAMINS, THERA 1 EACH TAB PO SCH (12:49)
[2018-10-03] MEDS: metroNIDAZOLE 500 MG TAB PO SCH ×2 (16:39→23:23)
[2018-10-03] MEDS: PANTOPRAZOLE 40 MG TABLET PO SCH (16:52)
[2018-10-03] MEDS: MELATONIN 3 MG TABLET PO SCH (21:23)
[2018-10-04] MEDS: PIPERACILLIN-TAZOBACTAM 3.375 GM in SODIUM CHLORIDE 0.9% 100 ML IVPB SCH ×3 (04:28→19:59)
[2018-10-04 04:46] LABS: Anisocytosis Slight; HCT 24.8 % (34.0-46.0); HGB 7.7 gm/dL (11.4-16.0); Hypochromasia Slight; MCH 27.3 pg (25.0-35.0); MCV 87.9 fL (80.0-100.0); Mean Platelet Volume 7.5; Platelet Count 160 k/uL (150-450); RBC 2.82 m/uL (3.80-5.40); RDW 16.6 % (11.5-15.5)
[2018-10-04 04:52] LABS: Calcium 7.3 mg/dL (8.4-10.2); Magnesium 1.9 mg/dL (1.6-2.3); Potassium 3.8 mmol/L (3.5-5.1)
[2018-10-04] MEDS: PANTOPRAZOLE 40 MG TABLET PO SCH ×2 (07:11→17:40)
[2018-10-04] MEDS: SODIUM CHLORIDE 0.9% 1,000 ML IV SCH (07:11)
--- NOTE | 2018-10-04 07:45 | XR ---
EXAMINATION TYPE: XR chest 1V portable DATE OF EXAM: 10/04/2018 COMPARISON: 10/03/2018 INDICATION: Short of breath TECHNIQUE: Single frontal view of the chest is obtained. FINDINGS: The heart size is large. The pulmonary vasculature is normal. Moderate right pleural effusion is present. Small left pleural effusion is present. Some atelectatic changes are at the left base. IMPRESSION: 1. Moderate right and small left pleural effusions. 2. Bilateral infiltrates can be related atelectasis. Other etiologies are not excluded. 3. Exam is similar to prior study.
--- NOTE | 2018-10-04 08:26 | P.PN ---
Subjective Progress Note Date: 10/04/18 his is an 83-year-old female patient of Dr. Castillo with past medical history of hypertension, gastroesophageal reflux disease, rectocele. Patient was recently hospitalized in June 2018 and son gave this history of ongoing problems with rectocele. They were recently traveling and patient was admitted to [facility] in [place] and was treated that time for colitis with 2 antibiotics but then realized it was not colitis. She has since returned home and has seen [facility] has been subsequently referred to a surgeon in [place] of rectocele surgery. The patient was admitted in June for acute kidney injury due to vomiting and diarrhea, hypertension, rectocele and GERD. She was discharged home with follow-up with Dr. Castillo and has subsequently seen by Dr. Manzo and underwent colonoscopy about 2 and half weeks ago which patient states she had a colon blockage in the upper part of the colon and could not get through. Patient complains of diarrhea and vomiting that started on Friday and got worse yesterday. She denies having any chest pain or shortness of breath. She denies any fever or chills. Today she states her abdomen is not bad. She did have a diarrhea stool today at around 10 AM that was non-bloody. KUB revealed persistent distal colonic obstruction likely improved from September 11. Patient underwent a barium enema study on September 01 as an outpatient which revealed severely distended transverse colon measuring up to 9.[address] the patient risk for perforation. Sigmoid diverticulosis with a 5 cm long tight stricture at the level of the mid sigmoid. Rectal contrast administration became painful for the patient due to the degree of rectal distention. Contrast eventually traverses the stricture but the exam is stopped before complete filling of the ascending colon and cecum due to patient pain. The stricture could be secondary to chronic diverticulitis or underlying constricting neoplasm. Chest x-ray done for NG tube placed that revealed the tube was not well characterized and recommended advancing. Patient was found to be afebrile, blood pressure 104/68, heart rate 85, pulse ox 95%. White count was normal at 6.6, hemoglobin 11.8. Electrolytes within normal limits, BUN 41 creatinine 1.57, blood sugar 125. NG tube was placed in the emergency center and patient was admitted to the MedSur floor and consult has been added for general surgery. Repeat chest x-ray reveals continuing dilatation of the colon, bibasilar atelectasis. Abdominal x-rays reveal continuing colonic ileus versus obstruction. 09/28 patient examined bedside denies any nausea but does endorses abdominal pain and discomfort. She is currently nothing by mouth for possible surgery tomorrow. Vitals are stable with a temperature of 98, pulse rate 72 and respiratory rate 16 blood pressure 120/69 saturating well on room air. Creatinine 1.2) patient's baseline of 0.89-1 continue IV fluids. Small sips of water allowed with medication. 09/29 Patient in surgery could not be evaluated on rounds today 09/30 patient was seen and evaluated in ICU and is still intubated. Patient underwent sigmoid resection for large bowel obstruction on 09/29 but was reintubated after extubation in the recovery room. Patient had a low urine outputs and received fluid boluses blood pressure this morning is 113/48 on levo fed running at 3 mics per hour. Will give one bolus of 1 L of normal saline and additional bolus of 500 mL afterwards. Patient is responding appropriately and answering simple questions on propofol. Plan to extubate today. 10/01 patient examined in the endorses oriented answering questions appropriately. Appears to be tired and lethargic. Blood pressure on the lower side patient did receive a dose of albumin today. Lasix 20 IV once was given for decreased urine output. Urine output currently is on 5200 mL per hour. We will reduce IV fluidspatient appears swollen. Patient has not passed flutters with normal bowel sounds. ABG suggestive of hypercarbia secondary to opioid/ [employer] pump that has been going discontinue patient is currently on 2 L of oxygen. Leukocytosis is improved from 18-14. PH is 7.28 pCO2 of 54 oxygenation 114 patient did require BiPAP briefly this morning due to hypercarbia. Creatinine stable at 1.44 7.2 Albumin Is 2.1 10/02 patient examined at bedside is doing better answering questions evan ropriately appears to be tired and lethargic. Complaints of significant abdominal pain. Vitals are stable with a temp of 98 respiratory rate 16 blood pressure 126/90 on 2 L of oxygen saturating at 98%. Patient continued to appears edematous will give a dose of 20 mg of IV Lasix. Continue Zosyn. Patient continues to have fairly serial sanguinous drainage from the TARI around 105 in the past 6 hours patient limited transferred to [facility] with telemetry today PTOT consult 10/03: Patient is examined sitting up in the chair. Patient complains of fatigue. Patient is able to answer questions appropriately. Patient does not have any complaints of significant abdominal pain at this time. Vital signs are stable pulse rate 81, respirations 20, blood pressure 03/09/1954, pulse ox a 98% on 2 L. Patient continues to have indwelling catheter in place with clear urine noted urine output of 40-50 ML's per hour. TARI drain is in place with minimal output. 10/04: Patient is sitting up in bed. Patient states that she had been her night sleep compared to the previous nights. Patient has less fatigue this morning than yesterday. Patient is able to answer questions appropriately. She does not have any complaints of abdominal pain nausea or vomiting at this time. Indwelling catheter still in place with clear urine urinary output approximately 40-50 ML's per hour. TARI drain is in place with minimal output. Dressing is clean and dry. Vital signs are stable, patient afebrile, blood pressure 105/52, heart rate heart rate 87, respirations 22, pulse oxing 98% on 2 L via nasal cannula. Review Of Systems: Constitutional: No fever, no chills, no night sweats. No weight change. Reports fatigue. No weakness or lethargy. No daytime sleepiness. EENT: No headache. No blurred vision or double vision, no loss of vision. No loss of Hearing, no ringing in the ears, no dizziness. No nasal drainage or congestion. No epistaxis. No sore throat. Lungs: No shortness of breath, cough, no sputum production. No wheezing. Cardiovascular: No chest pain, no lower extremity edema. No palpitations. No paroxysmal nocturnal dyspnea. No orthopnea. No lightheadedness or dizziness. No syncopal episodes. Abdominal: No abdominal discomfort. No nausea, vomiting. no diarrhea. No constipation. No bloody or tarry stools. improved loss of appetite. Genitourinary: No dysuria, increased frequency, urgency. No urinary retention. Musculoskeletal: No myalgias. No muscle weakness, no gait dysfunction, no frequent falls. No back pain. No neck pain. Integumentary: No wounds, no lesions. No rash or pruritus. No unusual bruising. No change in hair or nails. Neurologic: No aphasia. No facial droop. No change in mentation. No head injury. No headache. No paralysis. No paresthesia. Psychiatric: No depression. No anxiety. No mood swings. Endocrine: No abnormal blood sugars. No weight change. No excessive sweating or thirst. Objective - Vital Signs Vital signs: Vital Signs Temp 97.9 F 10/04/18 00:00 Pulse 68 10/04/18 05:00 Resp 22 10/04/18 05:00 BP 105/52 10/04/18 00:00 Pulse Ox 98 10/04/18 07:23 Intake & Output 10/03/18 10/04/18 10/04/18 18:59 06:59 18:59 Intake Total 600 300 Output Total 680 475 Balance -80 -175 Weight 73.9 kg Intake: IV 600 300 Piperacillin-Tazobactam 3 100 .375 gm In Sodium Chloride 0.9% 100 ml @ 25 mls/hr IVPB Q8H M[facility]ON Rx#: [id number] Sodium Chloride 0.9% 1, 600 200 000 ml @ 50 mls/hr IV . Q20H MADYSON Rx#:[id number] Output: Drainage 100 Abdomen 100 Urine 580 475 Other: Voiding Method Indwelling Catheter Indwelling Catheter - Exam General Appearance: Alert, cooperative, no distress, appears stated age. Neck HEENT: Supple, no lymphadenopathy, no thyroid enlargement, no carotid bruits. Lungs: Clear to auscultation without crackles or wheezes, diminished at bases, no rhonchi, no deformity. Chest Wall: Chest wall normal expansion with deep inspiration no tenderness and no deformity was found on exam, no costochondral pain or discomfort. Heart: Regular rate and rhythm, S1, S2 normal, no murmur, rub or gallop. Back: Symmetric, kyphosis, ROM normal, no CVA tenderness. Abdomen: Soft, tender incision site, TARI drain in place wound covered with dressing, no rebound or rigidity, no hepatosplenomegaly. Extremities: Extremities normal, atraumatic, no cyanosis or edema. Pulses: 2+ and symmetric. Skin: Skin color, texture, tugor normal, no rashes or lesions. Neurologic: Alert oriented x3 cranial nerves II through XII intact, no motor deficit - Labs CBC & Chem 7: 10/04/18 04:06 08/11/19 04:06 Labs: Abnormal Lab Results - Last 24 Hours (Table) 10/04/18 10/04/18 Range/Units 04:06 04:06 RBC 2.82 L (3.80-5.40) m/uL Hgb 7.7 L (11.4-16.0) gm/dL Hct 24.8 L (34.0-46.0) % RDW 16.6 H (11.5-15.5) % Creatinine 1.25 H (0.52-1.04) mg/dL Glucose 149 H (74-99) mg/dL Calcium 7.3 L (8.4-10.2) mg/dL Assessment and Plan Plan: 1. Acute kidney injury secondary to vomiting and diarrhea. Hold IV fluids due to increased third spacing. Bicarb drip discontinued Avoid nephrotoxic agents. Lasix and potassium on hold. Recheck basic metabolic panel in the morning. Creatinine stable. Continue to replace potassium and magnesium as needed per protocol. Indwelling catheter may be removed in a.m. 2. Ileus versus colonic obstruction with history of stricture of the sigmoid colon on colonoscopy status post sigmoid resection and mobilization of the splenic flexure on 09/29. on Zosyn and Flagyl per pulmonary. May transfer to medical surgical with telemetry. Continue to increase diet as tolerated. 3. Hypotension. resolved 4. Gastroesophageal reflux disease. Protonix 40 mg IV twice daily. 5. Rectocele, was previously worked out by physician in [place]. 6. acute hypercarbic respiratory failure likely secondary to medications. C urrently on 2 L of O2, Ultram given as needed for pain 7. generalized weakness secondary to debility. PT/OT consult 8. Daytime fatigue. Melatonin 6 mg by mouth at bedtime 9. DVT prophylaxis. Heparin subcu. 10. GI prophylaxis. Continue with Protonix Discharge plan: Minimal of 2 nights day Impression and plan of care have been directed as dictated by the signing physic ian. Fabiola Dia nurse practitioner acting as scribe for signing physician.
[2018-10-04] MEDS: POTASSIUM CHLORIDE ER 20 MEQ TAB.ER PO SCH (08:46)
[2018-10-04] MEDS: FERROUS SULFATE 325 MG TAB PO SCH (08:46)
[2018-10-04] MEDS: HEPARIN SODIUM,PORCINE 5,000 UNIT/ML 1 ML VIAL SQ SCH ×2 (08:46→19:59)
[2018-10-04] MEDS: metroNIDAZOLE 500 MG TAB PO SCH ×3 (08:46→23:44)
--- NOTE | 2018-10-04 11:36 | P.PN ---
Subjective Progress Note Date: 10/04/18 Principal diagnosis: S/P sigmoid resection The patient is doing well. She still feels weak. Having multiple loose stools. Sat up in a chair yesterday. She's tolerating a diet although she did not like we'll was brought for breakfast. She is not having any nausea, vomiting, bloating. Objective - Vital Signs Vital signs: Vital Signs Temp 98.1 F 10/04/18 08:00 Pulse 91 10/04/18 08:00 Resp 12 10/04/18 08:00 BP 123/60 10/04/18 08:00 Pulse Ox 98 10/04/18 07:23 Intake & Output 10/03/18 10/04/18 10/04/18 18:59 06:59 18:59 Intake Total 600 300 200 Output Total 680 475 250 Balance -80 -175 -50 Weight 73.9 kg Intake: IV 600 300 200 Piperacillin-Tazobactam 3 100 .375 gm In Sodium Chloride 0.9% 100 ml @ 25 mls/hr IVPB Q8H [facility] Rx#: [id number] Sodium Chloride 0.9% 1, 600 200 200 000 ml @ 50 mls/hr IV . Q20H [facility]YSON Rx#:[id number] Output: Drainage 100 50 Abdomen 100 50 Urine 580 475 200 Other: Voiding Method Indwelling Catheter Indwelling Catheter - Constitutional General appearance: Present: cooperative, no acute distress - Respiratory Respiratory: bilateral: CTA, diminished (Minimally at the bases) - Cardiovascular Rhythm: regular - Gastrointestinal General gastrointestinal: Present: normal bowel sounds, soft Localized gastrointestinal: surgical scar: diffuse (Incision has some serous drainage on the gauze. TARI has minimal serous output.) - Labs CBC & Chem 7: 10/04/18 04:06 10/04/18 04:06 Labs: Abnormal Lab Results - Last 24 Hours (Table) 10/04/18 10/04/18 Range/Units 04:06 04:06 RBC 2.82 L (3.80-5.40) m/uL Hgb 7.7 L (11.4-16.0) gm/dL Hct 24.8 L (34.0-46.0) % RDW 16.6 H (11.5-15.5) % Creatinine 1.25 H (0.52-1.04) mg/dL Glucose 149 H (74-99) mg/dL Calcium 7.3 L (8.4-10.2) mg/dL Assessment and Plan (1) Stricture of sigmoid colon Current Visit: Yes Status: Acute Code(s): K56.699 - OTHER INTESTNL OBST UNSP TO PARTIAL VERSUS COMPLETE OBST SNOMED Code(s): 2757289 (2) Colonic obstruction Current Visit: Yes Status: Acute Code(s): K56.609 - UNSP INTESTNL OBST, UNSP TO PARTIAL VERSUS COMPLETE OBST SNOMED Code(s): 83185553 (3) Respiratory failure Current Visit: Yes Status: Acute Code(s): J96.90 - RESPIRATORY FAILURE, UNSP, UNSP W HYPOXIA OR HYPERCAPNIA SNOMED Code(s): 737686456 Plan: The patient's loose stool would be expected as the proximal colon and small bowel was full of air and liquid stool. The drain will be discontinued. Encourage check activity and incentive spirometry. Progressing slowly.
[2018-10-04 12:46] VITALS: BMI 28.8
[2018-10-04] MEDS: MULTIVITAMINS, THERA 1 EACH TAB PO SCH (13:25)
[2018-10-04] MEDS: MORPHINE SULFATE 2 MG/ML SYRINGE IVP PRN (18:15)
[2018-10-04] MEDS: MELATONIN 3 MG TABLET PO SCH (23:44)
[2018-10-05] MEDS: PIPERACILLIN-TAZOBACTAM 3.375 GM in SODIUM CHLORIDE 0.9% 100 ML IVPB SCH ×3 (04:19→21:57)
[2018-10-05] MEDS: SODIUM CHLORIDE 0.9% 1,000 ML IV SCH (04:20)
[2018-10-05 04:59] LABS: Albumin 1.9 g/dL (3.5-5.0); Calcium 7.7 mg/dL (8.4-10.2); Total Bilirubin 0.3 mg/dL (0.2-1.3); Total Protein 3.8 g/dL (6.3-8.2)
[2018-10-05 05:04] LABS: Anisocytosis Slight; Basophils % (A) 0 %; Eosinophils # (A) 0.3 k/uL (0-0.7); Eosinophils % (A) 4 %; HCT 27.7 % (34.0-46.0); HGB 8.1 gm/dL (11.4-16.0); Hypochromasia Moderate; Lymphocytes % (A) 15 %; MCH 25.6 pg (25.0-35.0); MCHC 29.2 g/dL (31.0-37.0); MCV 87.8 fL (80.0-100.0); Mean Platelet Volume 7.6; Monocytes # (A) 0.4 k/uL (0-1.0); Monocytes % (A) 7 %; Neutrophils # (A) 4.5 k/uL (1.3-7.7); Neutrophils % (A) 71 %; Platelet Count 181 k/uL (150-450); RBC 3.16 m/uL (3.80-5.40); RDW 16.6 % (11.5-15.5); WBC 6.3 k/uL (3.8-10.6)
[2018-10-05] MEDS: PANTOPRAZOLE 40 MG TABLET PO SCH ×2 (06:06→18:49)
--- NOTE | 2018-10-05 07:11 | P.PN ---
Subjective Progress Note Date: 10/04/18 Principal diagnosis: Sigmoid colon Bowel obstruction, Metabolic acidosis, leukocytosis, stage III renal failure hyperkalemia , intravascular volume depletion and dehydration 10/04/2018, patient seen and evaluated examined during the rounds is still have ongoing diarrhea but respiratory status is stable patient is on 2 L oxygen diuresis and well her severity of pain has improved as well labs reviewed medications reviewed, continue to have the bilateral effusion more so on the right side compared to the left side once slightly stable consider doing ultrasound of chest 10/03/2018, patient seen eval reexamined during the rounds labs reviewed medications reviewed she sitting upright on the bed still have intermittent loose stools, denies any chest pain or shortness of breath she is on 2 L nasal cannula breathing comfortably gently being hydrated 50 mL an hour a bilateral pleural effusion appears to have improved still have some pulmonary vascular congestion patient is moving out to [facility] October 02 2018, patient seen eval examined during the rounds she is awake and alert however complaining of abdominal discomfort and pain she is getting morphine every 4 hour as needed patient has some loose stool late last night but diarrhea has resolved and supplies today 1 and loosely formed stool is present, still short of breath but not to extend before mental status has significantly improved, off of the epidural, labs reviewed medications reviewed chest x-ray s till showed right-sided pleural effusion patient is gently being rehydrated also was on bicarb drip which has been discontinued normal saline 50 mL an hour as been given, white cell count is down to 12,100 hemoglobin have been stable 7.5, potassium is 3.3 BUN/creatinine is 21.4, patient is kept overnight in ICU as she is very weak and still abdominal discomfort and pain and physical therapy have n ot initiated yet, patient has been evaluated by speech and swallow patient has been cleared for diet, care plan discussed with Dr. Manzo 10/01/2018, patient seen and evaluated examined during the rounds labs reviewed medications reviewed care plan discussed with the staff at length critical care time spent 35 minutes. And has been on supplemental oxygen this morning and gases revealed hypercapnia along with metabolic and respiratory acidosis patient is somnolent on epidural pump, labs reviewed medications reviewed magnesium is very low hemoglobin is low but stable, respiratory metabolic acidosis has been seen patient is almost finishing bicarb drip, chest x-ray showed right-sided effusion with basal left subsegmental atelectasis will give small dose of Lasix DC the epidural patient is suspected to have hypoventilation and related hypoxia once she is awake enough and then will DC the BiPAP, patient does respond to verbal stimuli denies any shortness of breath and chest pain denies any abdominal pain or discomfort 09/30/2018, patient seen and evaluated examined during the rounds labs reviewed medications reviewed care plan discussed with the staff at length patient has been on full ventilator support with assist control of 14 tidal volume of 400 PEEP of 5 and oxygen of 40% patient has been placed on CPAP of 5 pressure support of 5 and arterial blood gases were checked patient is still have metabolic acidosis but weaning parameters are adequate we'll proceed with extubation due to metabolic acidosis patient will be started on bicarb drip 1 amp of bicarb has been given, patient will be started on broad-spectrum antibiotics with Zosyn and Flagyl as well, white cell count noted to be elevated of 18,000 from 10,000 yesterday, has received multiple fluid boluses howev er is been off of vasopressors and propofol has been tapered and discontinued patient remains on [employer] pump, chest x-ray evaluated continue show basal atelectasis likely due to intra-abdominal process with stable tubing This patient seen eval examined recovery area she underwent exploratory laparotomy with sigmoid colon resection for sigmoid colon obstruction just due to stricture. Patient is on ventilator could not be weaned she is still somnolent and not arousable still alive under affect of anesthetic agent likely will be placed and kept in ICU on ventilator with full ventilator support with plan of screening for tomorrow and possible extubation Review of the medical records revealed that patient is an 83-year-old female patient of Dr. Castillo with past medical history of hypertension, gastroesophageal reflux disease, rectocele. Patient was recently hospitalized in June 2018 and son gave this history of ongoing problems with rectocele. They were recently traveling and patient was admitted to [facility] in [place] and was treated that time for colitis with 2 antibiotics but then realized it was not colitis. She has since returned home and has [facility] has been subsequently referred to a surgeon in [place] of rectocele surgery. The patient was admitted in June for acute kidney injury due to vomiting and diarrhea, hypertension, rectocele and GERD. She was discharged home with follow-up with Dr. Castillo and has subsequently seen by Dr. Manzo and underwent colonoscopy about 2 and half weeks ago which patient states she had a colon blockage in the upper part of the colon and could not get through. Patient complains of diarrhea and vomiting that started on 4 days ago and got worse aggressively on the day of admission. There is no history of chest pain or shortness of breath, fever or chills. Due to persistent problem associated abdominal discomfort and pain patient was taken to OR earlier today underwent resection as noted and appears to be not ready for weaning and extubation Objective - Vital Signs Vital signs: Vital Signs Temp 98.1 F 10/04/18 20:00 Pulse 96 10/04/18 20:00 Resp 16 10/04/18 20:00 BP 125/73 10/04/18 20:00 Pulse Ox 96 10/04/18 20:00 Intake & Output 10/04/18 10/04/18 10/05/18 06:59 18:59 06:59 Intake Total 300 600 Output Total 475 1235 Balance -175 -635 Weight 73.9 kg 73.9 kg Intake: IV 300 600 Piperacillin-Tazobactam 3 100 .375 gm In Sodium Chloride 0.9% 100 ml @ 25 mls/hr IVPB Q8H [facility] Rx#: [id number] Sodium Chloride 0.9% 1, 200 600 000 ml @ 50 mls/hr IV . Q20H [facility] Rx#:[id number] Output: Drainage 460 Abdomen 460 Urine 475 775 Other: Voiding Method Indwelling Catheter Indwelling Catheter Indwelling Catheter - Exam Awake alert slightly somnolent in between still on epidural - Constitutional General appearance: average body habitus, disheveled, no acute distress - EENT Eyes: PERRLA Ears: bilateral: normal - Neck Neck: normal ROM Carotids: bilateral: upstroke normal, bruit absent Thyroid: bilateral: normal size - Respiratory Respiratory: bilateral: CTA decrease in air entry at bilateral bases more so on the right side compared left side - Cardiovascular Rhythm: regular Heart sounds: normal: S1, S2 - Gastrointestinal General gastrointestinal: absent bowel sounds Neuro alert and awake moving all 4 extremity - Labs CBC & Chem 7: 10/05/18 04:06 10/05/18 04:06 Labs: Abnormal Lab Results - Last 24 Hours (Table) 10/04/18 10/04/18 Range/Units 04:06 04:06 RBC 2.82 L (3.80-5.40) m/uL Hgb 7.7 L (11.4-16.0) gm/dL Hct 24.8 L (34.0-46.0) % RDW 16.6 H (11.5-15.5) % Creatinine 1.25 H (0.52-1.04) mg/dL Glucose 149 H (74-99) mg/dL Calcium 7.3 L (8.4-10.2) mg/dL Assessment and Plan Assessment: Respiratory failure, postoperative expectant related to anesthetic agent and epidural improved now Bilateral pleural effusion right more than left, likely related to protein calorie malnourishment versus intra-abdominal process Hypercapnic hypoxic respiratory failure related to hypoventilation and metabolic and respiratory acidosis improved significantly Sigmoid colon obstruction status post resection Bilateral basal atelectasis 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 Sepsis Metabolic acidosis Dehydration and intravascular volume depletion Leukocytosis likely related to postoperative stress resolved and improved Electrolyte imbalance with severe hypomagnesemia and hypokalemia on replacement protocol continued to improve Plan: Gentle rehydration has risk of dehydration is they're due to constant diarrhea As needed supplemental oxygen 2 L nasal cannula Replace potassium, magnesium and electrolytes Repeat labs tomorrow Broad-spectrum antibiotics with Zosyn 3.375 every 8 hourly and Flagyl 500 mg IV every 8 hourly can DC 8 24-48 hours depressed swallowing, continued to improve patient has been started on diet Further recommendations pending plan of care as per clinical response of the patient Pain management Time with Patient: Greater than 30
--- NOTE | 2018-10-05 07:13 | P.PN ---
Subjective Progress Note Date: 10/05/18 Principal diagnosis: Sigmoid colon Bowel obstruction, Metabolic acidosis, leukocytosis, stage III renal failure hyperkalemia , intravascular volume depletion and dehydration 10/05/2018, patient seen and evaluated examined during the rounds she is sitting upright in chair breathing comfortably she is on 2 L nasal cannula no chest pain is present breathing is stable labs reviewed medications reviewed x-ray reviewed as well leukocytosis resolved patient is still have diarrhea stool for C. diff is pending we'll do the ultrasound of the chest today 10/04/2018, patient seen and evaluated examined during the rounds is still have ongoing diarrhea but respiratory status is stable patient is on 2 L oxygen diuresis and well her severity of pain has improved as well labs reviewed medications reviewed, continue to have the bilateral effusion more so on the right side compared to the left side once slightly stable consider doing ultrasound of chest 10/03/2018, patient seen eval reexamined during the rounds labs reviewed medications reviewed she sitting upright on the bed still have intermittent loose stools, denies any chest pain or shortness of breath she is on 2 L nasal cannula breathing comfortably gently being hydrated 50 mL an hour a bilateral pleural effusion appears to have improved still have some pulmonary vascular congestion patient is moving out to [facility] October 02 2018, patient seen eval examined during the rounds she is awake and alert however complaining of abdominal discomfort and pain she is getting morphine every 4 hour as needed patient has some loose stool late last night but diarrhea has resolved and supplies today 1 and loosely formed stool is present, still short of breath but not to extend before mental status has significantly improved, off of the epidural, labs reviewed medications reviewed chest x-ray still showed right-sided pleural effusion patient is gently being rehydrated also was on bicarb drip which has been discontinued normal saline 50 mL an hour as been given, white cell count is down to 12,100 hemoglobin have been stable 7.5, potassium is 3.3 BUN/creatinine is 21.4, patient is kept overnight in ICU as she is very weak and still abdominal discomfort and pain and physical therapy have not initiated yet, patient has been evaluated by speech and swallow patient has been cleared for diet, care plan discussed with Dr. Manzo 10/01/2018, patient seen and evaluated examined during the rounds labs reviewed medications reviewed care plan discussed with the staff at length critical care time spent 35 minutes. And has been on supplemental oxygen this morning and gases revealed hypercapnia along with metabolic and respiratory acidosis patient is somnolent on epidural pump, labs reviewed medications reviewed magnesium is very low hemoglobin is low but stable, respiratory metabolic acidosis has been seen patient is almost finishing bicarb drip, chest x-ray showed right-sided effusion with basal left subsegmental atelectasis will give small dose of Lasix DC the epidural patient is suspected to have hypoventilation and related hypoxia once she is awake enough and then will DC the BiPAP, patient does respond to verbal stimuli denies any shortness of breath and chest pain denies any abdominal pain or discomfort 09/30/2018, patient seen and evaluated examined during the rounds labs reviewed medications reviewed care plan discussed with the staff at length patient has been on full ventilator support with assist control of 14 tidal volume of 400 PEEP of 5 and oxygen of 40% patient has been placed on CPAP of 5 pressure support of 5 and arterial blood gases were checked patient is still have metabol ic acidosis but weaning parameters are adequate we'll proceed with extubation due to metabolic acidosis patient will be started on bicarb drip 1 amp of bicarb has been given, patient will be started on broad-spectrum antibiotics with Zosyn and Flagyl as well, white cell count noted to be elevated of 18,000 from 10,000 yesterday, has received multiple fluid boluses however is been off of vaso pressors and propofol has been tapered and discontinued patient remains on HOUSING INSPECTOR pump, chest x-ray evaluated continue show basal atelectasis likely due to intra- abdominal process with stable tubing This patient seen eval examined recovery area she underwent exploratory laparotomy with sigmoid colon resection for sigmoid colon obstruction just due to stricture. Patient is on ventilator could not be weaned she is still somnolent and not arousable still alive under affect of anesthetic agent likely will be placed and kept in ICU on ventilator with full ventilator support with plan of screening for tomorrow and possible extubation Review of the medical records revealed that patient is an 83-year-old female patient of Dr. Castillo with past medical history of hypertension, gastroesophageal reflux disease, rectocele. Patient was recently hospitalized in June 2018 and son gave this history of ongoing problems with rectocele. They were recently traveling and patient was admitted to [facility] in [place] and was treated that time for colitis with 2 antibiotics but then realized it was not colitis. She has since returned home and has seen Dr. Wolff at [facility] has been subsequently referred to a surgeon in [place] of rectocele surgery. The patient was admitted in June for acute kidney injury due to vomiting and diarrhea, hypertension, rectocele and GERD. She was discharged home with follow-up with Dr. Castillo and has subsequently seen by Dr. Manzo and underwent colonoscopy about 2 and half weeks ago which patient states she had a colon blockage in the upper part of the colon and could not get through. Patient complains of diarrhea and vomiting that started on 4 days ago and got worse aggressively on the day of admission. There is no history of chest pain or shortness of breath, fever or chills. Due to persistent problem associated abdominal discomfort and pain patient was taken to OR earlier today underwent resection as noted and appears to be not ready for weaning and extubation Objective - Vital Signs Vital signs: Vital Signs Temp 98 F 10/05/18 04:00 Pulse 82 10/05/18 04:00 Resp 17 10/05/18 04:00 BP 107/63 10/05/18 04:00 Pulse Ox 98 10/05/18 04:00 Intake & Output 10/04/18 10/05/18 10/05/18 18:59 06:59 18:59 Intake Total 600 Output Total 1235 570 Balance -635 -570 Weight 73.9 kg 74.8 kg Intake: IV 600 Sodium Chloride 0.9% 1, 600 000 ml @ 50 mls/hr IV . Q20H [facility] Rx#:[id number] Output: Drainage 460 Abdomen 460 Urine 775 570 Other: Voiding Method Indwelling Catheter Indwelling Catheter # Bowel Movements 6 - Exam Awake alert slightly somnolent in between still on epidural - Constitutional General appearance: average body habitus, disheveled, no acute distress - EENT Eyes: PERRLA Ears: bilateral: normal - Neck Neck: normal ROM Carotids: bilateral: upstroke normal, bruit absent Thyroid: bilateral: normal size - Respiratory Respiratory: bilateral: CTA decrease in air entry at bilateral bases more so on the right side compared left side - Cardiovascular Rhythm: regular Heart sounds: normal: S1, S2 - Gastrointestinal General gastrointestinal: absent bowel sounds Neuro alert and awake moving all 4 extremity - Labs CBC & Chem 7: 10/05/18 04:06 10/05/18 04:06 Labs: Abnormal Lab Results - Last 24 Hours (Table) 10/05/18 10/05/18 Range/Units 04:06 04:06 RBC 3.16 L (3.80-5.40) m/uL Hgb 8.1 L (11.4-16.0) gm/dL Hct 27.7 L (34.0-46.0) % MCHC 29.2 L (31.0-37.0) g/dL RDW 16.6 H (11.5-15.5) % Sodium 136 L (137-145) mmol/L BUN 19 H (7-17) mg/dL Creatinine 1.08 H (0.52-1.04) mg/dL Glucose 169 H (74-99) mg/dL Calcium 7.7 L (8.4-10.2) mg/dL Total Protein 3.8 L (6.3-8.2) g/dL Albumin 1.9 L (3.5-5.0) g/dL Assessment and Plan Assessment: Respiratory failure, postoperative expectant related to anesthetic agent and epidural improved now on 2 L nasal cannula Bilateral pleural effusion right more than left, likely related to protein calorie malnourishment versus intra-abdominal process Hypercapnic hypoxic respiratory failure related to hypoventilation and metabolic and respiratory acidosis improved significantly Sigmoid colon obstruction status post resection Bilateral basal atelectasis 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 Sepsis Metabolic acidosis Dehydration and intravascular volume depletion Leukocytosis likely related to postoperative stress resolved and improved Electrolyte imbalance with severe hypomagnesemia and hypokalemia on replacement protocol continued to improve Plan: Bilateral chest ultrasound Gentle rehydration has risk of dehydration is they're due to constant diarrhea As needed supplemental oxygen 2 L nasal cannula Replace potassium, magnesium and electrolytes Repeat labs tomorrow Broad-spectrum antibiotics with Zosyn 3.375 every 8 hourly and Flagyl 500 mg IV every 8 hourly can DC 8 24-48 hours depressed swallowing, continued to improve patient has been started on diet Further recommendations pending plan of care as per clinical response of the patient Pain management Time with Patient: Greater than 30
--- NOTE | 2018-10-05 07:59 | US ---
EXAMINATION TYPE: US chest DATE OF EXAM: 10/05/2018 COMPARISON: NONE CLINICAL HISTORY: pleural effusion. pleural effusion TECHNIQUE: Targeted ultrasound of the posterior lower bilateral hemithoraces EXAM MEASUREMENTS: Right Pleural Effusion pocket size: 2.4 cm Right skin surface to fluid distance: 2.4 cm Left Pleural Effusion pocket size: 5 cm Left skin surface to fluid distance: 2.5 cm Pulmonologists are able to review the images in the patient?s EMR. Not marked for pleural effusion lung tissue visualized 1.5cm in fluid pocket on the left side. IMPRESSIONS: Pleural effusions as noted.
[2018-10-05] MEDS: POTASSIUM CHLORIDE ER 20 MEQ TAB.ER PO SCH (08:22)
[2018-10-05] MEDS: metroNIDAZOLE 500 MG TAB PO SCH ×2 (08:22→16:58)
[2018-10-05] MEDS: HEPARIN SODIUM,PORCINE 5,000 UNIT/ML 1 ML VIAL SQ SCH ×2 (08:22→21:57)
[2018-10-05] MEDS: FERROUS SULFATE 325 MG TAB PO SCH (08:22)
[2018-10-05] MEDS: MULTIVITAMINS, THERA 1 EACH TAB PO SCH (13:42)
--- NOTE | 2018-10-05 14:22 | P.PN ---
Subjective Progress Note Date: 10/05/18 his is an 83-year-old female patient of Dr. Castillo with past medical history of hypertension, gastroesophageal reflux disease, rectocele. Patient was recently hospitalized in June 2018 and son gave this history of ongoing problems with rectocele. They were recently traveling and patient was admitted to [facility] in [place] and was treated that time for colitis with 2 antibiotics but then realized it was not colitis. She has since returned home and has seen Dr. Wolff at [facility] has been subsequently referred to a surgeon in [place] of rectocele surgery. The patient was admitted in June for acute kidney injury due to vomiting and diarrhea, hypertension, rectocele and GERD. She was discharged home with follow-up with Dr. Castillo and has subsequently seen by Dr. Manzo and underwent colonoscopy about 2 and half weeks ago which patient states she had a colon blockage in the upper part of the colon and could not get through. Patient complains of diarrhea and vomiting that started on Friday and got worse yesterday. She denies having any chest pain or shortness of breath. She denies any fever or chills. Today she states her abdomen is not bad. She did have a diarrhea stool today at around 10 AM that was non-bloody. KUB revealed persistent distal colonic obstruction likely improved from September 11. Patient underwent a barium enema study on September 01 as an outpatient which revealed severely distended transverse colon measuring up to 9.4 [address] the patient risk for perforation. Sigmoid diverticulosis with a 5 cm long tight stricture at the level of the mid sigmoid. Rectal contrast administration became painful for the patient due to the degree of rectal distention. Contrast eventually traverses the stricture but the exam is stopped before complete filling of the ascending colon and cecum due to patient pain. The stricture could be secondary to chronic diverticulitis or underlying constricting neoplasm. Chest x-ray done for NG tube placed that revealed the tube was not well characterized and recommended advancing. Patient was found to be afebrile, blood pressure 104/68, heart rate 85, pulse ox 95%. White count was normal at 6 .6, hemoglobin 11.8. Electrolytes within normal limits, BUN 41 creatinine 1.57, blood sugar 125. NG tube was placed in the emergency center and patient was admitted to the MedSur floor and consult has been added for general surgery. Repeat chest x-ray reveals continuing dilatation of the colon, bibasilar atelectasis. Abdominal x-rays reveal continuing colonic ileus versus obstruction. 09/28 patient examined bedside denies any nausea but does endorses abdominal pain and discomfort. She is currently nothing by mouth for possible surgery tomorrow. Vitals are stable with a temperature of 98, pulse rate 72 and respiratory rate 16 blood pressure 120/69 saturating well on room air. Creatinine 1.2) patient's baseline of 0.89-1 continue IV fluids. Small sips of water allowed with medication. 09/29 Patient in surgery could not be evaluated on rounds today 09/30 patient was seen and evaluated in ICU and is still intubated. Patient underwent sigmoid resection for large bowel obstruction on 09/29 but was reintubated after extubation in the recovery room. Patient had a low urine outputs and received fluid boluses blood pressure this morning is 113/48 on levo fed running at 3 mics per hour. Will give one bolus of 1 L of normal saline and additional bolus of 500 mL afterwards. Patient is responding appropriately and answering simple questions on propofol. Plan to extubate today. 10/01 patient examined in the endorses oriented answering questions appropriately. Appears to be tired and lethargic. Blood pressure on the lower side patient did receive a dose of albumin today. Lasix 20 IV once was given for decreased urine output. Urine output currently is on 5200 mL per hour. We will reduce IV fluidspatient appears swollen. Patient has not passed flutters with normal bowel sounds. ABG suggestive of hypercarbia secondary to opioid/ AUTO FLEET MANAGER pump that has been going discontinue patient is currently on 2 L of oxygen. Leukocytosis is improved from 18-14. PH is 7.28 pCO2 of 54 oxygenation 114 patient did require BiPAP briefly this morning due to hypercarbia. Creatinine stable at 1.44 7.2 Albumin Is 2.1 10/02 patient examined at bedside is doing better answering questions ap propriately appears to be tired and lethargic. Complaints of significant abdominal pain. Vitals are stable with a temp of 98 respiratory rate 16 blood pressure 126/90 on 2 L of oxygen saturating at 98%. Patient continued to appears edematous will give a dose of 20 mg of IV Lasix. Continue Zosyn. Patient continues to have fairly serial sanguinous drainage from the TARI around 105 in the past 6 hours patient limited transferred to [facility] with telemetry today PTOT consult 10/03: Patient is examined sitting up in the chair. Patient complains of fatigue. Patient is able to answer questions appropriately. Patient does not have any complaints of significant abdominal pain at this time. Vital signs are stable pulse rate 81, respirations 20, blood pressure 03/09/1954, pulse ox a 98% on 2 L. Patient continues to have indwelling catheter in place with clear urine noted urine output of 40-50 ML's per hour. TARI drain is in place with minimal output. 10/04: Patient is sitting up in bed. Patient states that she had been her night sleep compared to the previous nights. Patient has less fatigue this morning than yesterday. Patient is able to answer questions appropriately. She does no t have any complaints of abdominal pain nausea or vomiting at this time. Indwelling catheter still in place with clear urine urinary output approximately 40-50 ML's per hour. TARI drain is in place with minimal output. Dressing is clean and dry. Vital signs are stable, patient afebrile, blood pressure 105/52, heart rate heart rate 87, respirations 22, pulse oxing 98% on 2 L via nasal cannula. 10/05: Patient remains in intensive care unit waiting for [facility] bed. She has been afebrile, heart rate 89, blood pressure 107/63, pulse ox 97% on 2 L nasal cannula. Repeat WBC 6.3, hemoglobin 8.1, platelet count 181. Sodium 136, potassium 4.0, chloride 104, CO2 29, BUN 19, creatinine 1.08. Blood sugar 169. Albumin 1.9, C. difficile toxin negative. Patient is currently on soft diet and tolerating this. PT has recommended subacute rehab and patient's son has determined [facility] as a first choice. Patient does have small areas of dehiscence of abdominal wound which will need to clear discharge plan with Dr. Manzo. Patient is only reaching 500-600 on incentive spirometry. She is eating 75-100% of her meals. Patient is having soft loose brown bowel movements. Patient denies any complaints. Review Of Systems: Constitutional: No fever, no chills, no night sweats. No weight change. Reports fatigue. No weakness or lethargy. EENT: No headache. No blurred vision or double vision, no loss of vision. No loss of Hearing, no ringing in the ears, no dizziness. No nasal drainage or congestion. No epistaxis. No sore throat. Lungs: No shortness of breath, cough, no sputum production. No wheezing. Cardiovascular: No chest pain, no lower extremity edema. No palpitations. No p aroxysmal nocturnal dyspnea. No orthopnea. No lightheadedness or dizziness. No syncopal episodes. Abdominal: No abdominal discomfort. No nausea, vomiting. no diarrhea. No constipation. No bloody or tarry stools. improved loss of appetite. Genitourinary: No dysuria, increased frequency, urgency. No urinary retention. Musculoskeletal: No myalgias. No muscle weakness, no gait dysfunction, no frequent falls. No back pain. No neck pain. Integumentary: No wounds, no lesions. No rash or pruritus. No unusual bruising. No change in hair or nails. Neurologic: No aphasia. No facial droop. No change in mentation. No head injury. No headache. No paralysis. No paresthesia. Psychiatric: No depression. No anxiety. No mood swings. Endocrine: No abnormal blood sugars. No weight change. No excessive sweating or thirst. Objective - Vital Signs Vital signs: Vital Signs Temp 97.8 F 10/05/18 08:00 Pulse 89 10/05/18 08:00 Resp 20 10/05/18 08:00 BP 107/63 10/05/18 08:00 Pulse Ox 97 10/05/18 08:00 Intake & Output 10/04/18 10/05/18 10/05/18 18:59 06:59 18:59 Intake Total 600 200 Output Total 1235 570 Balance -635 -570 200 Weight 73.9 kg 74.8 kg Intake: IV 600 200 Sodium Chloride 0.9% 1, 600 200 000 ml @ 50 mls/hr IV . Q20H [facility] Rx#:[id number] Output: Drainage 460 Abdomen 460 Urine 775 570 Other: Voiding Method Indwelling Catheter Indwelling Catheter # Bowel Movements 6 - Exam General Appearance: Alert, cooperative, no distress, appears stated age. Neck HEENT: Supple, no lymphadenopathy, no thyroid enlargement, no carotid bruits. Lungs: Clear to auscultation without crackles or wheezes, diminished at bases, no rhonchi, no deformity. Chest Wall: Chest wall normal expansion with deep inspiration no tenderness and no deformity was found on exam, no costochondral pain or discomfort. Heart: Regular rate and rhythm, S1, S2 normal, no murmur, rub or gallop. Back: Symmetric, kyphosis, ROM normal, no CVA tenderness. Abdomen: Soft, small areas of dehiscence of midline abdominal wound, no rebound or rigidity, no hepatosplenomegaly. Extremities: Extremities normal, atraumatic, no cyanosis or edema. Pulses: 2+ and symmetric. Skin: Skin color, texture, tugor normal, no rashes or lesions. Neurologic: Alert oriented x3 cranial nerves II through XII intact, no motor de ficit - Labs CBC & Chem 7: 10/05/18 04:06 10/05/18 04:06 Labs: Abnormal Lab Results - Last 24 Hours (Table) 10/05/18 10/05/18 Range/Units 04:06 04:06 RBC 3.16 L (3.80-5.40) m/uL Hgb 8.1 L (11.4-16.0) gm/dL Hct 27.7 L (34.0-46.0) % MCHC 29.2 L (31.0-37.0) g/dL RDW 16.6 H (11.5-15.5) % Sodium 136 L (137-145) mmol/L BUN 19 H (7-17) mg/dL Creatinine 1.08 H (0.52-1.04) mg/dL Glucose 169 H (74-99) mg/dL Calcium 7.7 L (8.4-10.2) mg/dL Total Protein 3.8 L (6.3-8.2) g/dL Albumin 1.9 L (3.5-5.0) g/dL Assessment and Plan Plan: 1. Acute kidney injury secondary to vomiting and diarrhea. Avoid nephrotoxic agents. Continue to monitor renal function 2. Ileus versus colonic obstruction with history of stricture of the sigmoid colon on colonoscopy status post sigmoid resection and mobilization of the splen ic flexure on 09/29. on Zosyn and Flagyl per pulmonary. May transfer to medical surgical with telemetry. Continue to increase diet as tolerated. 3. Hypotension. resolved 4. Gastroesophageal reflux disease. Protonix 40 mg IV twice daily. 5. Rectocele, was previously worked out by physician in [place]. 6. Acute hypercarbic respiratory failure likely secondary to medications. Currently on 2 L of O2, Ultram given as needed for pain 7. Generalized weakness secondary to debility. PT/OT consult 8. Daytime fatigue. Melatonin 6 mg by mouth at bedtime 9. Severe protein calorie malnutrition. Continue protein supplements. 10. DVT prophylaxis. Heparin subcu. 10. GI prophylaxis. Continue with Protonix Discharge plan: on Friday. Impression and plan of care have been directed as dictated by the signing physician. Radha Edwards nurse practitioner acting as scribe for signing physician.
--- NOTE | 2018-10-05 16:52 | P.PN ---
Subjective Progress Note Date: 10/05/18 Principal diagnosis: S/P sigmoid resection The patient is doing well. She still on nasal cannula oxygen. Denies shortness of breath. Tolerating her diet. Speech pathology did reevaluate her and felt she is safe to advance her diet. No longer an aspiration risk. Her diarrhea is improving. She is still weak. Requires 2 people to assist her getting out of bed. Recommendation has been made for rehab after discharge. Objective - Vital Signs Vital signs: Vital Signs Temp 98.1 F 10/05/18 12:00 Pulse 78 10/05/18 12:00 Resp 20 10/05/18 12:00 BP 107/63 10/05/18 08:00 Pulse Ox 97 10/05/18 08:00 Intake & Output 10/04/18 10/05/18 10/05/18 18:59 06:59 18:59 Intake Total 600 400 Output Total 1235 570 225 Balance -635 -570 175 Weight 73.9 kg 74.8 kg Intake: IV 600 400 Sodium Chloride 0.9% 1, 600 400 000 ml @ 50 mls/hr IV . Q20H [facility] Rx#:[id number] Output: Drainage 460 Abdomen 460 Urine 775 570 Urine/Stool Mix 225 Other: Voiding Method Indwelling Catheter Indwelling Catheter # Voids 1 # Bowel Movements 6 3 - Constitutional General appearance: Present: cooperative, no acute distress - Respiratory Respiratory: bilateral: CTA, diminished (At the bases) - Gastrointestinal General gastrointestinal: Present: normal bowel sounds, soft Localized gastrointestinal: surgical scar: diffuse (Incision is without cellulitis. There are some areas that are not closed where the earl were removed. It has some serous drainage.) - Labs CBC & Chem 7: 10/05/18 04:06 10/05/18 04:06 Labs: Abnormal Lab Results - Last 24 Hours (Table) 10/05/18 10/05/18 Range/Units 04:06 04:06 RBC 3.16 L (3.80-5.40) m/uL Hgb 8.1 L (11.4-16.0) gm/dL Hct 27.7 L (34.0-46.0) % MCHC 29.2 L (31.0-37.0) g/dL RDW 16.6 H (11.5-15.5) % Sodium 136 L (137-145) mmol/L BUN 19 H (7-17) mg/dL Creatinine 1.08 H (0.52-1.04) mg/dL Glucose 169 H (74-99) mg/dL Calcium 7.7 L (8.4-10.2) mg/dL Total Protein 3.8 L (6.3-8.2) g/dL Albumin 1.9 L (3.5-5.0) g/dL Assessment and Plan (1) Stricture of sigmoid colon Current Visit: Yes Status: Acute Code(s): K56.699 - OTHER INTESTNL OBST UNSP TO PARTIAL VERSUS COMPLETE OBST SNOMED Code(s): 2584894 (2) Colonic obstruction Current Visit: Yes Status: Acute Code(s): K56.609 - UNSP INTESTNL OBST, UNSP TO PARTIAL VERSUS COMPLETE OBST SNOMED Code(s): 72305510 (3) Respiratory failure Current Visit: Yes Status: Acute Code(s): J96.90 - RESPIRATORY FAILURE, UNSP, UNSP W HYPOXIA OR HYPERCAPNIA SNOMED Code(s): 575612889 Plan: Surgically stable. The patient will be advanced to a low-fat diet. Local wound care for the incision. Likely surgically ready for discharge to rehab in the next few days.
[2018-10-05] MEDS: ONDANSETRON 4 MG/2 ML VIAL IVP PRN (18:40)
[2018-10-05] MEDS: MELATONIN 3 MG TABLET PO SCH (21:57)
[2018-10-06] MEDS: SODIUM CHLORIDE 0.9% 1,000 ML IV SCH (01:41)
[2018-10-06] MEDS: metroNIDAZOLE 500 MG TAB PO SCH ×3 (01:41→16:34)
[2018-10-06] MEDS: PIPERACILLIN-TAZOBACTAM 3.375 GM in SODIUM CHLORIDE 0.9% 100 ML IVPB SCH ×3 (05:30→20:50)
[2018-10-06] MEDS: PANTOPRAZOLE 40 MG TABLET PO SCH ×2 (09:57→16:34)
[2018-10-06] MEDS: FERROUS SULFATE 325 MG TAB PO SCH (09:57)
[2018-10-06] MEDS: POTASSIUM CHLORIDE ER 20 MEQ TAB.ER PO SCH (09:58)
[2018-10-06] MEDS: HEPARIN SODIUM,PORCINE 5,000 UNIT/ML 1 ML VIAL SQ SCH ×2 (10:02→20:50)
--- NOTE | 2018-10-06 12:27 | P.PN ---
Subjective Progress Note Date: 10/06/18 Principal diagnosis: S/P sigmoid resection The patient is doing well. Eating, appetite is improving. Stooling less. C. Diff has been negative. Still very weak Objective - Vital Signs Vital signs: Vital Signs Temp 97.8 F 10/06/18 08:00 Pulse 79 10/06/18 08:00 Resp 28 H 10/06/18 11:52 BP 103/52 10/06/18 08:00 Pulse Ox 94 L 10/06/18 08:00 Intake & Output 10/05/18 10/06/18 10/06/18 18:59 06:59 18:59 Intake Total 600 700 640 Output Total 225 2 Balance 375 700 638 Weight 74.2 kg Intake: IV 600 700 400 Piperacillin-Tazobactam 3 100 .375 gm In Sodium Chloride 0.9% 100 ml @ 25 mls/hr IVPB Q8H [facility] Rx#: [id number] Sodium Chloride 0.9% 1, 600 600 400 000 ml @ 50 mls/hr IV . Q20H [facility] Rx#:[id number] Oral 240 Output: Stool 2 Urine/Stool Mix 225 Other: Voiding Method Bedside Commode Bedside Commode # Voids 2 2 1 # Bowel Movements 2 2 1 - Constitutional General appearance: Present: cooperative - Gastrointestinal General gastrointestinal: Present: soft Localized gastrointestinal: surgical scar: diffuse (dressing with serous drainage) - Labs CBC & Chem 7: 10/05/18 04:06 10/05/18 04:06 Assessment and Plan (1) Stricture of sigmoid colon Current Visit: Yes Status: Acute Code(s): K56.699 - OTHER INTESTNL OBST UNSP TO PARTIAL VERSUS COMPLETE OBST SNOMED Code(s): 9097996 (2) Colonic obstruction Current Visit: Yes Status: Acute Code(s): K56.609 - UNSP INTESTNL OBST, UNSP TO PARTIAL VERSUS COMPLETE OBST SNOMED Code(s): 41926276 (3) Respiratory failure Current Visit: Yes Status: Acute Code(s): J96.90 - RESPIRATORY FAILURE, UNSP, UNSP W HYPOXIA OR HYPERCAPNIA SNOMED Code(s): 117946359 Plan: Doing well from a surgical standpoint. No sign of infection. Some serous drainage. I'll order an OptiFoam dressing. The loose stools are expected in someone after they have had a fci colonic obstruction. Surgically stable for rehab when she is medically stable
[2018-10-06] MEDS: MULTIVITAMINS, THERA 1 EACH TAB PO SCH (12:36)
--- NOTE | 2018-10-06 13:07 | P.PN ---
Subjective Progress Note Date: 10/06/18 his is an 83-year-old female patient of Dr. Castillo with past medical history of hypertension, gastroesophageal reflux disease, rectocele. Patient was recently hospitalized in June 2018 and son gave this history of ongoing problems with rectocele. They were recently traveling and patient was admitted to [facility] [place] in [place] and was treated that time for colitis with 2 antibiotics but then realized it was not colitis. She has since returned home and [facility] has been subsequently referred to a surgeon in [place] of rectocele surgery. The patient was admitted in June for acute kidney injury due to vomiting and diarrhea, hypertension, rectocele and GERD. She was discharged home with follow-up with Dr. Castillo and has subsequently seen by Dr. Manzo and underwent colonoscopy about 2 and half weeks ago which patient states she had a colon blockage in the upper part of the colon and could not get through. Patient complains of diarrhea and vomiting that started on Friday and got worse yesterday. She denies having any chest pain or shortness of breath. She denies any fever or chills. Today she states her abdomen is not bad. She did have a diarrhea stool today at around 10 AM that was non-bloody. KUB revealed persistent distal colonic obstruction likely improved from September 11. Patient underwent a barium enema study on September 01 as an outpatient which revealed severely distended transverse colon measuring up to 9.[address] the patient risk for perforation. Sigmoid diverticulosis with a 5 cm long tight stricture at the level of the mid sigmoid. Rectal contrast administration became painful for the patient due to the degree of rectal distention. Contrast eventually traverses the stricture but the exam is stopped before complete filling of the ascending colon and cecum due to patient pain. The stricture could be secondary to chronic diverticulitis or underlying constricting neoplasm. Chest x-ray done for NG tube placed that revealed the tube was not well characterized and recommended advancing. Patient was found to be afebrile, blood pressure 104/68, heart rate 85, pulse ox 95%. White count was normal at 6 .6, hemoglobin 11.8. Electrolytes within normal limits, BUN 41 creatinine 1.57, blood sugar 125. NG tube was placed in the emergency center and patient was admitted to the MedSur floor and consult has been added for general surgery. Repeat chest x-ray reveals continuing dilatation of the colon, bibasilar atelectasis. Abdominal x-rays reveal continuing colonic ileus versus obstruction. 09/28 patient examined bedside denies any nausea but does endorses abdominal pain and discomfort. She is currently nothing by mouth for possible surgery tomorrow. Vitals are stable with a temperature of 98, pulse rate 72 and respiratory rate 16 blood pressure 120/69 saturating well on room air. Creatinine 1.2) patient's baseline of 0.89-1 continue IV fluids. Small sips of water allowed with medication. 09/29 Patient in surgery could not be evaluated on rounds today 09/30 patient was seen and evaluated in ICU and is still intubated. Patient underwent sigmoid resection for large bowel obstruction on 09/29 but was reintubated after extubation in the recovery room. Patient had a low urine outputs and received fluid boluses blood pressure this morning is 113/48 on levo fed running at 3 mics per hour. Will give one bolus of 1 L of normal saline and additional bolus of 500 mL afterwards. Patient is responding appropriately and answering simple questions on propofol. Plan to extubate today. 10/01 patient examined in the endorses oriented answering questions appropriately. Appears to be tired and lethargic. Blood pressure on the lower side patient did receive a dose of albumin today. Lasix 20 IV once was given for decreased urine output. Urine output currently is on 5200 mL per hour. We will reduce IV fluidspatient appears swollen. Patient has not passed flutters with normal bowel sounds. ABG suggestive of hypercarbia secondary to opioid/ JEWELRY RACKER pump that has been going discontinue patient is currently on 2 L of oxygen. Leukocytosis is improved from 18-14. PH is 7.28 pCO2 of 54 oxygenation 114 patient did require BiPAP briefly this morning due to hypercarbia. Creatinine stable at 1.44 7.2 Albumin Is 2.1 10/02 patient examined at bedside is doing better answering questions ap propriately appears to be tired and lethargic. Complaints of significant abdominal pain. Vitals are stable with a temp of 98 respiratory rate 16 blood pressure 126/90 on 2 L of oxygen saturating at 98%. Patient continued to appears edematous will give a dose of 20 mg of IV Lasix. Continue Zosyn. Patient continues to have fairly serial sanguinous drainage from the TARI around 105 in the past 6 hours patient limited transferred to [facility] with telemetry today PTOT consult 10/03: Patient is examined sitting up in the chair. Patient complains of fatigue. Patient is able to answer questions appropriately. Patient does not have any complaints of significant abdominal pain at this time. Vital signs are stable pulse rate 81, respirations 20, blood pressure 03/09/1954, pulse ox a 98% on 2 L. Patient continues to have indwelling catheter in place with clear urine noted urine output of 40-50 ML's per hour. TARI drain is in place with minimal output. 10/04: Patient is sitting up in bed. Patient states that she had been her night sleep compared to the previous nights. Patient has less fatigue this morning than yesterday. Patient is able to answer questions appropriately. She does no t have any complaints of abdominal pain nausea or vomiting at this time. Indwelling catheter still in place with clear urine urinary output approximately 40-50 ML's per hour. TARI drain is in place with minimal output. Dressing is clean and dry. Vital signs are stable, patient afebrile, blood pressure 105/52, heart rate heart rate 87, respirations 22, pulse oxing 98% on 2 L via nasal cannula. 10/05: Patient remains in intensive care unit waiting for [facility] bed. She has been afebrile, heart rate 89, blood pressure 107/63, pulse ox 97% on 2 L nasal cannula. Repeat WBC 6.3, hemoglobin 8.1, platelet count 181. Sodium 136, potassium 4.0, chloride 104, CO2 29, BUN 19, creatinine 1.08. Blood sugar 169. Albumin 1.9, C. difficile toxin negative. Patient is currently on soft diet and tolerating this. PT has recommended subacute rehab and patient's son has determined [facility] as a first choice. Patient does have small areas of dehiscence of abdominal wound which will need to clear discharge plan with Dr. Manzo. Patient is only reaching 500-600 on incentive spirometry. She is eating 75-100% of her meals. Patient is having soft loose brown bowel movements. Patient denies any complaints. 10/06: Patient remains in the intensive care unit awaiting a [facility] bed. We did downgrade patient to note telemetry yesterday but still no beds are available. Patient is having loose stools every 3 hours and is incontinent. C. difficile toxin has been negative. Patient has good appetite and is eating well. Dr. Manzo has ordered Proctofoam dressing and has cleared the patient for discharge to rehab She has been afebrile, heart rate 80, blood pressure 107/93, pulse ox 99% on 2 L nasal cannula. We'll plan to monitor overnight and plan for discharge tomorrow. Discharge plan is to [facility] under the care of Dr. lopez. Review Of Systems: Constitutional: No fever, no chills, no night sweats. No weight change. Reports fatigue. No weakness or lethargy. EENT: No headache. No blurred vision or double vision, no loss of vision. No loss of Hearing, no ringing in the ears, no dizziness. No nasal drainage or congestion. No epistaxis. No sore throat. Lungs: No shortness of breath, cough, no sputum production. No wheezing. Cardiovascular: No chest pain, no lower extremity edema. No palpitations. No paroxysmal nocturnal dyspnea. No orthopnea. No lightheadedness or dizziness. No syncopal episodes. Abdominal: No abdominal discomfort. No nausea, vomiting. Reports diarrhea. No constipation. No bloody or tarry stools. improved loss of appetite. Genitourinary: No dysuria, increased frequency, urgency. No urinary retention. Musculoskeletal: No myalgias. No muscle weakness, no gait dysfunction, no frequent falls. No back pain. No neck pain. Integumentary: No wounds, no lesions. No rash or pruritus. No unusual bruising. No change in hair or nails. Neurologic: No aphasia. No facial droop. No change in mentation. No head injury. No headache. No paralysis. No paresthesia. Psychiatric: No depression. No anxiety. No mood swings. Endocrine: No abnormal blood sugars. No weight change. No excessive sweating or thirst. Objective - Vital Signs Vital signs: Vital Signs Temp 98 F 10/06/18 12:00 Pulse 80 10/06/18 12:00 Resp 26 H 10/06/18 12:00 BP 107/93 10/06/18 12:00 Pulse Ox 99 10/06/18 12:00 Intake & Output 10/05/18 10/06/18 10/06/18 18:59 06:59 18:59 Intake Total 600 700 640 Output Total 225 2 Balance 375 700 638 Weight 74.2 kg Intake: IV 600 700 400 Piperacillin-Tazobactam 3 100 .375 gm In Sodium Chloride 0.9% 100 ml @ 25 mls/hr IVPB Q8H [facility] Rx#: [id number] Sodium Chloride 0.9% 1, 600 600 400 000 ml @ 50 mls/hr IV . Q20H [facility] Rx#:[id number] Oral 240 Output: Stool 2 Urine/Stool Mix 225 Other: Voiding Method Bedside Commode Bedside Commode # Voids 2 2 1 # Bowel Movements 2 2 1 - Exam General Appearance: Alert, cooperative, no distress, appears stated age. Neck HEENT: Supple, no lymphadenopathy, no thyroid enlargement, no carotid bruits. Lungs: Clear to auscultation without crackles or wheezes, diminished at bases, no rhonchi, no deformity. Chest Wall: Chest wall normal expansion with deep inspiration no tenderness and no deformity was found on exam, no costochondral pain or discomfort. Heart: Regular rate and rhythm, S1, S2 normal, no murmur, rub or gallop. Abdomen: Soft, small areas of dehiscence of midline abdominal wound, no rebound or rigidity, no hepatosplenomegaly. Extremities: Extremities normal, atraumatic, no cyanosis or edema. Pulses: 2+ and symmetric. Skin: Skin color, texture, tugor normal, no rashes or lesions. Neurologic: Alert oriented x3 cranial nerves II through XII intact, no motor deficit - Labs CBC & Chem 7: 10/05/18 04:06 10/05/18 04:06 Assessment and Plan Plan: 1. Acute kidney injury secondary to vomiting and diarrhea. Avoid nephrotoxic agents. Continue to monitor renal function 2. Ileus versus colonic obstruction with history of stricture of the sigmoid colon on colonoscopy status post sigmoid resection and mobilization of the splenic flexure on 09/29. on Zosyn and Flagyl per pulmonary. May transfer to medical surgical with telemetry. Continue low fiber diet. 3. Hypotension. resolved 4. Gastroesophageal reflux disease. Protonix 40 mg IV twice daily. 5. Rectocele, was previously worked out by physician in [place]. 6. Acute hypercarbic respiratory failure likely secondary to medications. Currently on 2 L of O2, Ultram given as needed for pain 7. Generalized weakness secondary to debility. PT/OT consult 8. Daytime fatigue. Melatonin 6 mg by mouth at bedtime 9. Severe protein calorie malnutrition. Continue protein supplements. 10. DVT prophylaxis. Heparin subcu. 10. GI prophylaxis. Continue with Protonix Discharge plan: on Friday. Impression and plan of care have been directed as dictated by the signing rimma gonsalez. Radha Edwards nurse practitioner acting as scribe for signing physician.
--- NOTE | 2018-10-06 18:16 | P.PN ---
Subjective Progress Note Date: 10/06/18 Principal diagnosis: Sigmoid colon Bowel obstruction, Metabolic acidosis, leukocytosis, stage III renal failure hyperkalemia , intravascular volume depletion and dehydration 10/06/2018, patient seen eval examined during the rounds, still have an ongoing intermittent diarrhea pain is improved patient is on home your off of oxygen breathing comfortably labs reviewed medications reviewed, ultrasound reviewed a right-sided pleural effusion is 2 cm left is about 5 cm not enough to tap 10/05/2018, patient seen and evaluated examined during the rounds she is sitting upright in chair breathing comfortably she is on 2 L nasal cannula no chest pain is present breathing is stable labs reviewed medications reviewed x-ray reviewed as well leukocytosis resolved patient is still have diarrhea stool for C. diff is pending we'll do the ultrasound of the chest today 10/04/2018, patient seen and evaluated examined during the rounds is still have ongoing diarrhea but respiratory status is stable patient is on 2 L oxygen diuresis and well her severity of pain has improved as well labs reviewed medications reviewed, continue to have the bilateral effusion more so on the right side compared to the left side once slightly stable consider doing ultrasound of chest 10/03/2018, patient seen eval reexamined during the rounds labs reviewed medications reviewed she sitting upright on the bed still have intermittent loose stools, denies any chest pain or shortness of breath she is on 2 L nasal cannula breathing comfortably gently being hydrated 50 mL an hour a bilateral pleural effusion appears to have improved still have some pulmonary vascular congestion patient is moving [facility] October 02 2018, patient seen eval examined during the rounds she is awake and alert however complaining of abdominal discomfort and pain she is getting morphine every 4 hour as needed patient has some loose stool late last night but diarrhea has resolved and supplies today 1 and loosely formed stool is present, still short of breath but not to extend before mental status has significantly improved, off of the epidural, labs reviewed medications reviewed chest x-ray still showed right-sided pleural effusion patient is gently being rehydrated also was on bicarb drip which has been discontinued normal saline 50 mL an hour as been given, white cell count is down to 12,100 hemoglobin have been stable 7.5, potassium is 3.3 BUN/creatinine is 21.4, patient is kept overnight in ICU as she is very weak and still abdominal discomfort and pain and physical therapy have not initiated yet, patient has been evaluated by speech and swallow patient has been cleared for diet, care plan discussed with Dr. Manzo 10/01/2018, patient seen and evaluated examined during the rounds labs reviewed medications reviewed care plan discussed with the staff at length critical care time spent 35 minutes. And has been on supplemental oxygen this morning and gases revealed hypercapnia along with metabolic and respiratory acidosis patient is somnolent on epidural pump, labs reviewed medications reviewed magnesium is very low hemoglobin is low but stable, respiratory metabolic acidosis has been seen patient is almost finishing bicarb drip, chest x-ray showed right-sided effusion with basal left subsegmental atelectasis will give small dose of Lasix DC the epidural patient is suspected to have hypoventilation and related hypoxia once she is awake enough and then will DC the BiPAP, patient does respond to verbal stimuli denies any shortness of breath and chest pain denies any abdomina l pain or discomfort 09/30/2018, patient seen and evaluated examined during the rounds labs reviewed medications reviewed care plan discussed with the staff at length patient has been on full ventilator support with assist control of 14 tidal volume of 400 PEEP of 5 and oxygen of 40% patient has been placed on CPAP of 5 pressure support of 5 and arterial blood gases were checked patient is still have metabolic acidosis but weaning parameters are adequate we'll proceed with extubation due to metabolic acidosis patient will be started on bicarb drip 1 amp of bicarb has been given, patient will be started on broad-spectrum antibiotics with Zosyn and Flagyl as well, white cell count noted to be elevated of 18,000 from 10,000 yesterday, has received multiple fluid boluses however is been off of vasopressors and propofol has been tapered and discontinued patient remains on [employer] pump, chest x-ray evaluated continue show basal atelectasis likely due to intra-abdominal process with stable tubing This patient seen eval examined recovery area she underwent exploratory laparotomy with sigmoid colon resection for sigmoid colon obstruction just due to stricture. Patient is on ventilator could not be weaned she is still somnolent and not arousable still alive under affect of anesthetic agent likely will be placed and kept in ICU on ventilator with full ventilator support with plan of screening for tomorrow and possible extubation Review of the medical records revealed that patient is an 83-year-old female patient of Dr. Castillo with past medical history of hypertension, g astroesophageal reflux disease, rectocele. Patient was recently hospitalized in June 2018 and son gave this history of ongoing problems with rectocele. They were recently traveling and patient was admitted to [facility] in [place] and was treated that time for colitis with 2 antibiotics but then realized it was not colitis. She has since returned home and has [facility] has been subsequently referred to a surgeon in [place] of rectocele surgery. The patient was admitted in June for acute kidney injury due to vomiting and diarrhea, hypertension, rectocele and GERD. She was discharged home with follow-up with Dr. Castillo and has subsequently seen by Dr. Manzo and underwent colonoscopy about 2 and half weeks ago which patient states she had a colon blockage in the upper part of the colon and could not get through. Patient complains of diarrhea and vomiting that started on 4 days ago and got worse aggressively on the day of admission. There is no history of chest pain or shortness of breath, fever or chills. Due to persistent problem associated abdominal discomfort and pain patient was taken to OR earlier today underwent resection as noted and appears to be not ready for weaning and extubation Objective - Vital Signs Vital signs: Vital Signs Temp 98.5 F 10/06/18 16:00 Pulse 89 10/06/18 16:00 Resp 29 H 10/06/18 16:00 BP 111/59 10/06/18 16:00 Pulse Ox 90 L 10/06/18 16:00 Intake & Output 10/05/18 10/06/18 10/06/18 18:59 06:59 18:59 Intake Total 600 700 700 Output Total 225 2 Balance 375 700 698 Weight 74.2 kg Intake: IV 600 700 460 Piperacillin-Tazobactam 3 100 10 .375 gm In Sodium Chloride 0.9% 100 ml @ 25 mls/hr IVPB Q8H [facility] Rx#: [id number] Sodium Chloride 0.9% 1, 600 600 450 000 ml @ 50 mls/hr IV . Q20H [facility] Rx#:[id number] Oral 240 Output: Stool 2 Urine/Stool Mix 225 Other: Voiding Method Bedside Commode Bedside Commode Bedpan # Voids 2 2 1 # Bowel Movements 2 2 1 - Exam Awake alert slightly somnolent in between still on epidural - Constitutional General appearance: average body habitus, disheveled, no acute distress - EENT Eyes: PERRLA Ears: bilateral: normal - Neck Neck: normal ROM Carotids: bilateral: upstroke normal, bruit absent Thyroid: bilateral: normal size - Respiratory Respiratory: bilateral: CTA decrease in air entry at bilateral bases more so on the right side compared left side - Cardiovascular Rhythm: regular Heart sounds: normal: S1, S2 - Gastrointestinal General gastrointestinal: absent bowel sounds Neuro alert and awake moving all 4 extremity - Labs CBC & Chem 7: 10/05/18 04:06 10/05/18 04:06 Assessment and Plan Assessment: Respiratory failure, postoperative expectant related to anesthetic agent and epidural improved now on 2 L nasal cannula Bilateral pleural effusion, left more than the right, likely related to protein calorie malnourishment versus intra-abdominal process, will observe no plans for thoracentesis Hypercapnic hypoxic respiratory failure related to hypoventilation and metabolic and respiratory acidosis improved significantly Sigmoid colon obstruction status post resection Bilateral basal atelectasis 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 Sepsis Metabolic acidosis Dehydration and intravascular volume depletion Leukocytosis likely related to postoperative stress resolved and improved Electrolyte imbalance with severe hypomagnesemia and hypokalemia on replacement protocol continued to improve Plan: Bilateral chest ultrasound Gentle rehydration has risk of dehydration is they're due to constant diarrhea As needed supplemental oxygen 2 L nasal cannula Replace potassium, magnesium and electrolytes No plans for thoracentesis depressed swallowing, continued to improve patient has been started on diet Further recommendations pending plan of care as per clinical response of the patient Pain management Antibiotics can be DC'd in next 24 hours as white cell count is stable Time with Patient: Greater than 30
[2018-10-06] MEDS: MELATONIN 3 MG TABLET PO SCH (20:49)
[2018-10-07] MEDS: metroNIDAZOLE 500 MG TAB PO SCH ×2 (00:17→07:58)
[2018-10-07] MEDS: SODIUM CHLORIDE 0.9% 1,000 ML IV SCH (00:21)
[2018-10-07 02:24] VITALS: TEMP 98.1
[2018-10-07 05:10] LABS: Anisocytosis Slight; HCT 26.5 % (34.0-46.0); HGB 8.2 gm/dL (11.4-16.0); Hypochromasia Moderate; MCHC 30.8 g/dL (31.0-37.0); MCV 87.5 fL (80.0-100.0); Mean Platelet Volume 8.4; Platelet Count 261 k/uL (150-450); RBC 3.03 m/uL (3.80-5.40); RDW 16.6 % (11.5-15.5); WBC 8.5 k/uL (3.8-10.6)
[2018-10-07 05:17] LABS: Calcium 8.2 mg/dL (8.4-10.2)
[2018-10-07 07:08] VITALS: BP 112/71; PULSE 98; RESP 18
[2018-10-07] MEDS: PIPERACILLIN-TAZOBACTAM 3.375 GM in SODIUM CHLORIDE 0.9% 100 ML IVPB SCH (07:57)
[2018-10-07] MEDS: PANTOPRAZOLE 40 MG TABLET PO SCH (07:58)
[2018-10-07] MEDS: HEPARIN SODIUM,PORCINE 5,000 UNIT/ML 1 ML VIAL SQ SCH (07:58)
[2018-10-07] MEDS: POTASSIUM CHLORIDE ER 20 MEQ TAB.ER PO SCH (07:58)
[2018-10-07] MEDS: FERROUS SULFATE 325 MG TAB PO SCH (07:58)
--- NOTE | 2018-10-07 09:31 | P.DS ---
Providers Date of admission: 09/26/18 20:08 Expected date of discharge: 10/07/18 Attending physician: Harshal Alcantara MD Consults: 09/27/18 10:25 Consult Physician Routine Consulting Provider: Alicia Manzo Consult Reason/Comments: bowel obstruction, OR 10/06 Do you want consulting provider notified?: Yes 09/29/18 17:58 Consult Physician Stat Consulting Provider: Thiago French Consult Reason/Comments: pulmonary management Do you want consulting provider notified?: Already Contacted Primary care physician: Andrew Castillo [facility] Course: his is an 83-year-old female patient of Dr. Castillo with past medical history of hypertension, gastroesophageal reflux disease, rectocele. Patient was recently hospitalized in June 2018 and son gave this history of ongoing problems with rectocele. They were recently traveling and patient was admitted to [facility] in [place] and was treated that time for colitis with 2 antibiotics but then realized it was not colitis. She has since returned home and has [facility] has been subsequently referred to a surgeon in [place] of rectocele surgery. The patient was admitted in June for acute kidney injury due to vomiting and diarrhea, hypertension, rectocele and GERD. She was discharged home with follow-up with Dr. Castillo and has subsequently seen by Dr. Manzo and underwent colonoscopy about 2 and half weeks ago which patient states she had a colon blockage in the upper part of the colon and could not get through. Patient complains of diarrhea and vomiting that started on Friday and got worse yesterday. She denies having any chest pain or shortness of breath. She denies any fever or chills. Today she states her abdomen is not bad. She did have a diarrhea stool today at around 10 AM that was non-bloody. KUB revealed persistent distal colonic obstruction likely improved from September 11. Patient underwent a barium enema study on September 01 as an outpatient which revealed severely distended transverse colon measuring up to 9.4 [address] the patient risk for perforation. Sigmoid diverticulosis with a 5 cm long tight stricture at the level of the mid sigmoid. Rectal contrast administration became painful for the patient due to the degree of rectal distention. Contrast eventually traverses the stricture but the exam is stopped before complete filling of the ascending colon and cecum due to patient pain. The stricture could be secondary to chronic diverticulitis or underlying constricting neoplasm. Chest x-ray done for NG tube placed that revealed the tube was not well characterized and recommended advancing. Patient was found to be afebrile, blood pressure 104/68, heart rate 85, pulse ox 95%. White count was normal at 6.6, hemoglobin 11.8. Electrolytes within normal limits, BUN 41 creatinine 1.57, blood sugar 125. NG tube was placed in the emergency center and patient was admitted to the [facility] floor and consult has been added for general surgery. Repeat chest x-ray reveals continuing dilatation of the colon, bibasilar atelectasis. Abdominal x-rays reveal continuing colonic ileus versus obstruction. 09/28 patient examined bedside denies any nausea but does endorses abdominal pain and discomfort. She is currently nothing by mouth for possible surgery tomorrow. Vitals are stable with a temperature of 98, pulse rate 72 and respiratory rate 16 blood pressure 120/69 saturating well on room air. Creatinine 1.2) patient's baseline of 0.89-1 continue IV fluids. Small sips of water allowed with medication. 09/29 Patient in surgery could not be evaluated on rounds today 09/30 patient was seen and evaluated in ICU and is still intubated. Patient underwent sigmoid resection for large bowel obstruction on 09/29 but was reintubated after extubation in the recovery room. Patient had a low urine outputs and received fluid boluses blood pressure this morning is 113/48 on levo fed running at 3 mics per hour. Will give one bolus of 1 L of normal saline and additional bolus of 500 mL afterwards. Patient is responding appropriately and answering simple questions on propofol. Plan to extubate today. 10/01 patient examined in the endorses oriented answering questions appropriately. Appears to be tired and lethargic. Blood pressure on the lower side patient did receive a dose of albumin today. Lasix 20 IV once was given for decreased u rine output. Urine output currently is on 5200 mL per hour. We will reduce IV fluidspatient appears swollen. Patient has not passed flutters with normal bowel sounds. ABG suggestive of hypercarbia secondary to opioid/ [employer] pump that has been going discontinue patient is currently on 2 L of oxygen. Leukocytosis is improved from 18-14. PH is 7.28 pCO2 of 54 oxygenation 114 patient did require BiPAP briefly this morning due to hypercarbia. Creatinine stable at 1.44 7.2 Albumin Is 2.1 10/02 patient examined at bedside is doing better answering questions appropriately appears to be tired and lethargic. Complaints of significant abdominal pain. Vitals are stable with a temp of 98 respiratory rate 16 blood pressure 126/90 on 2 L of oxygen saturating at 98%. Patient continued to appears edematous will give a dose of 20 mg of IV Lasix. Continue Zosyn. Patient continues to have fairly serial sanguinous drainage from the TARI around 105 in the past 6 hours patient limited transferred to [facility] with telemetry today PTOT consult 10/03: Patient is examined sitting up in the chair. Patient complains of fatigue. Patient is able to answer questions appropriately. Patient does not have any complaints of significant abdominal pain at this time. Vital signs are stable pulse rate 81, respirations 20, blood pressure 03/09/1954, pulse ox a 98% on 2 L. Patient continues to have indwelling catheter in place with clear urine noted urine output of 40-50 ML's per hour. TARI drain is in place with minimal output. 10/04: Patient is sitting up in bed. Patient states that she had been her night sleep compared to the previous nights. Patient has less fatigue this morning than yesterday. Patient is able to answer questions appropriately. She does not have any complaints of abdominal pain nausea or vomiting at this time. Indwelling catheter still in place with clear urine urinary output approximately 40-50 ML's per hour. TARI drain is in place with minimal output. Dressing is clean and dry. Vital signs are stable, patient afebrile, blood pressure 105/52, heart rate heart rate 87, respirations 22, pulse oxing 98% on 2 L via nasal cannula. 10/05: Patient remains in intensive care unit waiting for [facility] bed. She has been afebrile, heart rate 89, blood pressure 107/63, pulse ox 97% on 2 L nasal cannula. Repeat WBC 6.3, hemoglobin 8.1, platelet count 181. Sodium 136, potas sium 4.0, chloride 104, CO2 29, BUN 19, creatinine 1.08. Blood sugar 169. Albumin 1.9, C. difficile toxin negative. Patient is currently on soft diet and tolerating this. PT has recommended subacute rehab and patient's son has determined [facility] as a first choice. Patient does have small areas of dehiscence of abdominal wound which will need to clear discharge plan with Dr. Manzo. Patient is only reaching 500-600 on incentive spirometry. She is eating 75-100% of her meals. Patient is having soft loose brown bowel movements. Patient denies any complaints. 10/06: Patient remains in the intensive care unit awaiting a [facility] bed. We did downgrade patient to note telemetry yesterday but still no beds are available. Patient is having loose stools every 3 hours and is incontinent. C. difficile toxin has been negative. Patient has good appetite and is eating well. Dr. Manzo has ordered Proctofoam dressing and has cleared the patient for discharge to rehab She has been afebrile, heart rate 80, blood pressure 107/93, pulse ox 99% on 2 L nasal cannula. We'll plan to monitor overnight and plan for discharge tomorrow. Discharge plan is to [facility] under the care of Dr. lopez. 10/07: Pathology report reveals diverticulosis with diverticulitis, multiple areas of serosal sclerosis and surface adhesion formation. Adherent tubo- ovarian complex with atrophic ovarian stromal changes. Negative for active inflammation. Patient has been afebrile, heart rate 86, blood pressure 112/71, pulse ox 94% on room air. WBC 8.5, hemoglobin 8.2, platelet count 271. Sodium 135, potassium 4.0, chloride 102, CO2 27, BUN 23 and creatinine 1.18, blood sugar 179. Discharge diagnoses: 1. Acute kidney injury secondary to vomiting and diarrhea. 2. Sigmoid colonic obstruction status post sigmoid resection and mobilization of the splenic flexure on 09/29. 3. SIRS with leukocytosis and tachycardia, present on admission as patient had progressive worsening of symptoms. Sepsis ruled out as no clear infectious process. 4. Acute hypoxic hypercapnic respiratory failure, expected postop complication. 5. Respiratory metabolic acidosis secondary to hypoventilation due to anesthesia and epidural. 6. Hypovolemic shock secondary to acute blood loss, requiring vasopressors and IV fluid resuscitation. Unexpected with surgery. 7. Acute blood loss anemia with hemoglobin dropped from 11-7.7, expected with surgery, not requiring blood transfusion. 8. Gastroesophageal reflux disease. 9. Rectocele, was previously worked up by physician in [place]. 10. Severe protein calorie malnutrition. Discharge plan: [facility] under the care of Dr. Castillo Impression and plan of care have been directed as dictated by the signing physician. Radha Edwards nurse practitioner acting as scribe for signing physician. Patient Condition at Discharge: Good Plan - Discharge Summary Discharge Rx Participant: No New Discharge Prescriptions: New metroNIDAZOLE [Flagyl] 500 mg PO Q8HR #21 tab Ferrous Sulfate [Iron (65 MG Elemental)] 325 mg PO DAILY tab Potassium Chloride ER [K-Dur 20] 20 meq PO DAILY tab.er.prt Melatonin 6 mg PO HS tablet traMADol HCl [Ultram] 50 mg PO QID PRN #12 tab PRN Reason: Pain Loperamide [Imodium] 2 mg PO TID PRN #60 cap PRN Reason: Diarrhea Continue Multivitamins, Thera [Multivitamin (formulary)] 1 tab PO AC-LUNCH Calcium Carbonate [Calcium] 600 mg PO AC-LUNCH Ondansetron HCl [Zofran] 4 mg PO BID PRN PRN Reason: Nausea And Vomiting Cholecalciferol [Vitamin D3 (25 Mcg = 1000 Iu)] 1,000 unit PO AC-LUNCH Omeprazole Magnesium [PriLOSEC OTC] 20 mg PO DAILY Changed hydrALAZINE HCL [Apresoline] 50 mg PO TID #90 tab Discontinued Red Yeast Rice 600 mg PO DAILY Lisinopril-Hctz 20-25 mg [Zestoretic 20-25] 1 tab PO DAILY Potassium Chloride [Klor-Con 10] 10 meq PO Q48H #0 Furosemide [Lasix] 20 mg PO Q48H #0 Iron 28mg 28 mg PO DAILY Discharge Medication List Calcium Carbonate [Calcium] 600 mg PO AC-LUNCH 06/28/16 [History] Multivitamins, Thera [Multivitamin (formulary)] 1 tab PO AC-LUNCH 06/28/16 [History] Cholecalciferol [Vitamin D3 (25 Mcg = 1000 Iu)] 1,000 unit PO AC-LUNCH 06/28/18 [History] Ondansetron HCl [Zofran] 4 mg PO BID PRN 06/28/18 [History] Omeprazole Magnesium [PriLOSEC OTC] 20 mg PO DAILY 09/26/18 [History] Ferrous Sulfate [Iron (65 MG Elemental)] 325 mg PO DAILY tab 10/07/18 [Rx] Loperamide [Imodium] 2 mg PO TID PRN #60 cap 10/07/18 [Rx] Melatonin 6 mg PO HS tablet 10/07/18 [Rx] Potassium Chloride ER [K-Dur 20] 20 meq PO DAILY tab.er.prt 10/07/18 [Rx] hydrALAZINE HCL [Apresoline] 50 mg PO TID #90 tab 10/07/18 [Rx] metroNIDAZOLE [Flagyl] 500 mg PO Q8HR #21 tab 10/07/18 [Rx] traMADol HCl [Ultram] 50 mg PO QID PRN #12 tab 10/07/18 [Rx] Follow up Appointment(s)/Referral(s): Alicia Manzo DO [Doctor of Osteopathic Medicine] - 1 Week (For staple removal) Andrew Castillo MD [Primary Care Provider] - 1 Week (at [facility]) Thiago French MD [STAFF PHYSICIAN] - 1 Week Patient Instructions/Handouts: Colectomy (DC) Activity/Diet/Wound Care/Special Instructions: Change the dressing on the abdomen every 5 days. Clean the incision with normal saline or an antimicrobial hand dry cleaner. Pat dry. Cover with an optifoam dressing. Discharge Disposition: TRANSFER TO SNF/ECF
[2018-10-07] MEDS: MULTIVITAMINS, THERA 1 EACH TAB PO SCH (12:45)
== END 2018-10-07 13:15 | DRG 329 ==
LOC: EC 16:32 → 4SSUR 20:08 → 4MS4W 09-28 16:34 → 2SICU 09-29 17:41 → 4MS4W 10-07 06:30
PROVIDERS: ADMIT Internal Medicine; ATTEND Internal Medicine
PROC: 0DTN0ZZ Resection of Sigmoid Colon, Open Approach (ICD-10-PCS; principal; 2018-09-29 13:00)
PROC: 5A1935Z Respiratory Ventilation, Less than 24 Consecutive Hours (ICD-10-PCS; 2018-09-30)
PROC: 0BH17EZ Insertion of Endotracheal Airway into Trachea, Via Natural or Artificial Opening (ICD-10-PCS; 2018-09-30)
PROC: 5A09457 Assistance with Respiratory Ventilation, 24-96 Consecutive Hours, Continuous Positive Airway Pressure (ICD-10-PCS; 2018-10-01)
DX: K56.699 Other intestinal obstruction unspecified as to partial versus complete obstruction (principal); J96.01 Acute respiratory failure with hypoxia; J96.02 Acute respiratory failure with hypercapnia; R57.1 Hypovolemic shock; E43 Unspecified severe protein-calorie malnutrition; N17.9 Acute kidney failure, unspecified; J98.11 Atelectasis; E87.4 Mixed disorder of acid-base balance; D62 Acute posthemorrhagic anemia; J90 Pleural effusion, not elsewhere classified; R65.10 Systemic inflammatory response syndrome (SIRS) of non-infectious origin without acute organ dysfunction; K57.32 Diverticulitis of large intestine without perforation or abscess without bleeding; E87.5 Hyperkalemia; E86.0 Dehydration; R60.9 Edema, unspecified; E83.42 Hypomagnesemia; I95.9 Hypotension, unspecified; I12.9 Hypertensive chronic kidney disease with stage 1 through stage 4 chronic kidney disease, or unspecified chronic kidney disease; N18.3 Chronic kidney disease, stage 3 (moderate); K57.30 Diverticulosis of large intestine without perforation or abscess without bleeding; N81.6 Rectocele; R53.81 Other malaise; K21.9 Gastro-esophageal reflux disease without esophagitis; K52.9 Noninfective gastroenteritis and colitis, unspecified; T88.59XA Other complications of anesthesia, initial encounter; M19.90 Unspecified osteoarthritis, unspecified site; F32.9 Major depressive disorder, single episode, unspecified; Z90.710 Acquired absence of both cervix and uterus; Z90.49 Acquired absence of other specified parts of digestive tract; Z79.899 Other long term (current) drug therapy; Z87.891 Personal history of nicotine dependence; Z82.3 Family history of stroke; Z82.49 Family history of ischemic heart disease and other diseases of the circulatory system; Z83.3 Family history of diabetes mellitus; Z86.19 Personal history of other infectious and parasitic diseases; Z98.890 Other specified postprocedural states
CPT/HCPCS: 36415; 36600; 71045; 71046; 74018; 74019; 76604; 80048; 80053; 81001; 82150; 82805; 83690; 83735; 84100; 84132; 85025; 85027; 85610; 85730; 86850; 86900; 86901; 87324; 88307; 94002; 94003; 94660; 96361; 96374; 99285

== ENCOUNTER 2018-11-14 15:25 | Emergency (ER) | payer MEDICARE, BC ==
[2018-11-14] MEDS ORDERED: DOCUSATE 283 MG/5 ML ENEMA RECTAL STA (16:09)
--- NOTE | 2018-11-14 16:12 | ED ---
Abdominal Pain HPI - General Chief Complaint: Abdominal Pain Stated Complaint: Constipation Time Seen by Provider: 11/14/18 15:39 Source: patient, RN notes reviewed, old records reviewed Mode of arrival: ambulatory Limitations: no limitations - History of Present Illness Initial Comments: Patient is a 9-year-old female, presents emergency department today for chief complaint of constipation for over one week. Patient reports that she was discharged last Friday from [place] after complicated bowel resection surgery. Patient reports no vomiting. Patient states she try to use do use a suppository to help her have a bowel movement and now she is having burning rectal pain. She states she feels that she has a large mass of stool within her rectum. Patient states that she has had no fevers or chills. She states she still is passing gas. - Related Data Home Medications Medication Instructions Recorded Confirmed Calcium Carbonate [Calcium] 600 mg PO AC-LUNCH 06/28/16 09/26/18 Multivitamins, Thera [Multivitamin 1 tab PO AC-LUNCH 06/28/16 09/26/18 (formulary)] Cholecalciferol [Vitamin D3 (25 1,000 unit PO AC-LUNCH 06/28/18 09/26/18 Mcg = 1000 Iu)] Ondansetron HCl [Zofran] 4 mg PO BID PRN 06/28/18 09/26/18 Omeprazole Magnesium [PriLOSEC OTC] 20 mg PO DAILY 09/26/18 09/26/18 Previous Rx's Medication Instructions Recorded Ferrous Sulfate [Iron (65 MG 325 mg PO DAILY tab 10/07/18 Elemental)] Loperamide [Imodium] 2 mg PO TID PRN #60 cap 10/07/18 Melatonin 6 mg PO HS tablet 10/07/18 Potassium Chloride ER [K-Dur 20] 20 meq PO DAILY tab.er.prt 10/07/18 hydrALAZINE HCL [Apresoline] 50 mg PO TID #90 tab 10/07/18 metroNIDAZOLE [Flagyl] 500 mg PO Q8HR #21 tab 10/07/18 traMADol HCl [Ultram] 50 mg PO QID PRN #12 tab 10/07/18 Bisacodyl [Dulcolax] 10 mg PO DAILY #7 tablet. 11/14/18 Allergies Allergy/AdvReac Type Severity Reaction Status Date / Time No Known Allergies Allergy Verified 11/14/18 15:35 Review of Systems ROS Statement: Those systems with pertinent positive or pertinent negative responses have been documented in the HPI. ROS Other: All systems not noted in ROS Statement are negative. Past Medical History Past Medical History: GERD/Reflux, Hypertension, Osteoarthritis (OA) Additional Past Medical History / Comment(s): Rectocele, hepatitis c (in remission now), History of Any Multi-Drug Resistant Organisms: None Reported Past Surgical History: Cholecystectomy, Hysterectomy Additional Past Surgical History / Comment(s): LEFT KNEE, on water pill (lasix) for feet swelling (denies CHF), Past Psychological History: Depression Smoking Status: Former smoker Past Alcohol Use History: None Reported Past Drug Use History: None Reported - Past Family History Father Additional Family Medical History / Comment(s): Patient's father in his 70s who with history of diabetes and coronary artery disease. Mother Additional Family Medical History / Comment(s): Her mother in her 70s from unknown cause. Brother(s) Additional Family Medical History / Comment(s): Patient has 4 brothers and 3 have and all brothers have had diabetes and coronary artery disease. Sister(s) Additional Family Medical History / Comment(s): Patient has 3 sisters that have all . One from CVA. 2 sisters with coronary artery disease and diabetes. Patient has one son known to have diabetes. General Exam - General Exam Comments Initial Comments: This is an 83-year-old female. Alert and oriented 3. Patient appears in no significant distress. Limitations: no limitations General appearance: alert, in no apparent distress Head exam: Present: atraumatic, normocephalic, normal inspection Eye exam: Present: normal appearance, PERRL, EOMI. Absent: scleral icterus, conjunctival injection, periorbital swelling ENT exam: Present: normal exam, mucous membranes moist Neck exam: Present: normal inspection. Absent: tenderness, meningismus, lymphadenopathy Respiratory exam: Present: normal lung sounds bilaterally. Absent: respiratory distress, wheezes, rales, rhonchi, stridor Cardiovascular Exam: Present: regular rate, normal rhythm, normal heart sounds. Absent: systolic murmur, diastolic murmur, rubs, gallop, clicks GI/Abdominal exam: Present: soft, normal bowel sounds, other (Well-appearing midline incision beneath umbilicus. No erythema or drainage.). Absent: distended, tenderness, guarding, rebound, rigid Extremities exam: Present: normal inspection, full ROM, normal capillary refill. Absent: tenderness, pedal edema, joint swelling, calf tenderness Back exam: Present: normal inspection Neurological exam: Present: alert, oriented X3, CN II-XII intact Psychiatric exam: Present: normal affect, normal mood Course Vital Signs 11/14/18 15:33 Temperature 97.7 F Pulse Rate 100 Respiratory 20 Rate Blood Pressure 150/78 O2 Sat by Pulse 97 Oximetry Medical Decision Making - Medical Decision Making 9-year-old female presents return today and she went constipation. Patient reports she has not had a bowel movement in approximately a week. She did attempt a suppository at home today was the cause and burning rectal pain. At this time Patient is passing gas. Bowel sounds are heard in all quadrants. She's had no vomiting. Patient x-rays reviewed and shows no significant constipation. We did attempt, and discussed male is impaction. States she just prefer to have full enema. Subsequently performed and she did have a bowel movement. Patient does feel better at this time. I discussed putting the Patient on stool softeners for the next 2 days as well as she can follow-up with her primary care doctor possible surgeon.. All questions were answered and return parameters were discussed. - Radiology Data Radiology results: report reviewed X-ray of the abdomen shows a nonacute abdomen, elevated right diaphragm could relate to some paralysis. No significant constipation. Decreased bowel distention compared to last exam. Disposition Clinical Impression: Constipation Disposition: HOME SELF-CARE Condition: Good Instructions (If sedation given, give patient instructions): Constipation (ED) Additional Instructions: Please use medication as discussed. Please follow up with family doctor if symptoms have not improved over the next two days. Please return to the emergency room if your symptoms increase or worsen or for any other concerns. Prescriptions: Bisacodyl [Dulcolax] 10 mg PO DAILY #7 tablet.dr Is patient prescribed a controlled substance at d/c from ED?: No Referrals: Andrew Castillo MD [Primary Care Provider] - 1-2 days Time of Disposition: 17:53
--- NOTE | 2018-11-14 16:39 | XR ---
EXAMINATION TYPE: XR KUB DATE OF EXAM: 11/14/2018 COMPARISON: 09/27/2018 HISTORY: Constipation TECHNIQUE: 2 views FINDINGS: There is no sign of intestinal obstruction or pneumoperitoneum. There are no pathologic june cifications over the kidneys. Lung bases are clear of consolidation. There is elevated right diaphrag m. IMPRESSION: Nonacute abdomen. Elevated right diaphragm could relate to some paralysis. No significant constipation. There is significant decreased large bowel distention compared to old exam.
[2018-11-14 18:11] VITALS: BP 148/87; PULSE 87; RESP 18; TEMP 98
== END 2018-11-14 18:10 | disposition home or self-care (01) ==
LOC: EC 15:25
DX: K59.00 Constipation, unspecified (principal); K62.89 Other specified diseases of anus and rectum; K21.9 Gastro-esophageal reflux disease without esophagitis; Z87.891 Personal history of nicotine dependence; Z79.899 Other long term (current) drug therapy; Z90.49 Acquired absence of other specified parts of digestive tract
CPT/HCPCS: 74018; 99284

== ENCOUNTER → 2019-01-01 | Outpatient (CLI) | payer MEDICARE, BC ==
--- NOTE | 2019-01-04 09:30 | MM ---
Reason for exam: screening (asymptomatic). Last mammogram was performed 1 year and 1 month ago. History: Patient is postmenopausal. Physical Findings: A clinical breast exam by your physician is recommended on an annual basis and results should be correlated with mammographic findings. MG 3D Screening Mammo W/Cad Bilateral CC and MLO view(s) were taken. Prior study comparison: December 11, 2017, bilateral MG 3d screening mammo w/cad. December 10, 2016, bilateral MG 3d screening mammo w/cad. There are scattered fibroglandular densities. Benign appearing bilateral calcifications. No suspicious abnormality. No significant changes when compared with prior studies. ASSESSMENT: Benign, BI-RAD 2 RECOMMENDATION: Routine screening mammogram of both breasts in 1 year.
== END | disposition home or self-care (01) ==
LOC: RADMAMWWP 09:25
PROVIDERS: ATTEND Internal Medicine Geriatric Medicine
DX: Z12.31 Encounter for screening mammogram for malignant neoplasm of breast (principal)
CPT/HCPCS: 77063; 77067

== ENCOUNTER 2019-01-29 09:36 | Emergency (ER) | payer MEDICARE, BC ==
[2019-01-29 09:51] VITALS: TEMP 97.8
--- NOTE | 2019-01-29 10:58 | XR ---
EXAMINATION TYPE: XR KUB DATE OF EXAM: 01/29/2019 10:52 AM CLINICAL HISTORY: History of constipation with abdominal pain TECHNIQUE: Two Upright KUB images of the abdomen are obtained. COMPARISON: Abdominal x-ray November 14, 2018 FINDINGS: Elevated right hemidiaphragm is redemonstrated. Scattered gas is seen in non-distended smal l bowel loops. Gas and fecal material is seen in non-distended colon. Some prominence of fecal materi al towards the hepatic flexure similar to prior. Horizontal sutures overlie the right mid abdomen sim ilar to prior. Prominent spurring mid lumbar spine redemonstrated. No pneumoperitoneum or suspicious calcifications. Prominent overlying breast shadows again seen. IMPRESSION: Overall nonobstructive bowel gas pattern remains present. Proximal moderate proximal colonic fecal st asis. No significant change from prior.
[2019-01-29 11:03] LABS: Basophils % (A) 0 %; Calcium 9.7 mg/dL (8.4-10.2); Eosinophils # (A) 0.1 k/uL (0-0.7); Eosinophils % (A) 1 %; HCT 38.8 % (34.0-46.0); HGB 12.3 gm/dL (11.4-16.0); Lymphocytes % (A) 23 %; MCH 27.1 pg (25.0-35.0); MCHC 31.7 g/dL (31.0-37.0); MCV 85.7 fL (80.0-100.0); Mean Platelet Volume 6.3; Monocytes # (A) 0.4 k/uL (0-1.0); Monocytes % (A) 5 %; Neutrophils # (A) 5.9 k/uL (1.3-7.7); Neutrophils % (A) 69 %; Platelet Count 305 k/uL (150-450); Potassium 4.3 mmol/L (3.5-5.1); RBC 4.53 m/uL (3.80-5.40); RDW 15.6 % (11.5-15.5); Total Bilirubin 0.5 mg/dL (0.2-1.3); Total Protein 7.4 g/dL (6.3-8.2); WBC 8.5 k/uL (3.8-10.6)
[2019-01-29] MEDS ORDERED: SODIUM CHLORIDE 0.9% 500 ML 500 ML IV ONE (11:07)
[2019-01-29] MEDS ORDERED: SODIUM CHLORIDE 0.9% 1,000 ML IV SCH (11:15)
--- NOTE | 2019-01-29 12:27 | ED ---
Abdominal Pain HPI - General Source: patient Mode of arrival: wheelchair Limitations: no limitations <Sheryl Balderrama - Last Filed: 01/29/19 14:16> <Mike Baca - Last Filed: 01/29/19 16:48> - General Chief Complaint: Abdominal Pain Stated Complaint: Constipation Time Seen by Provider: 01/29/19 09:53 - History of Present Illness Initial Comments: 83-year-old female with history of previous hysterectomy, rectocele, bowel resection with subsequent frequent constipation presents emergency department for chief complaint of constipation. Patient states she's been constant for the past 6 days. She states 6 days ago she had a family member who was a nurse give her a Fleet enema she states she had a large bowel movement. Patient states she has not gone sense however attempted to have a bowel movement yesterday straining having small amount of rectal bleeding. Patient states when she wiped today she had a small amount of bleeding on the total paper very light pink was not sure if this is coming from the vagina or the rectum. Patient denies any abdominal pain she states she has rectal discomfort. Patient states she takes a daily stool softener patient denies any chest pain shortness of breath fevers or any other complaints upon arrival patient appears well no signs of acute distress and playing without difficulty (Sheryl Balderrama) - Related Data Home Medications Medication Instructions Recorded Confirmed Calcium Carbonate [Calcium] 600 mg PO AC-LUNCH 06/28/16 09/26/18 Multivitamins, Thera [Multivitamin 1 tab PO AC-LUNCH 06/28/16 09/26/18 (formulary)] Cholecalciferol [Vitamin D3 (25 1,000 unit PO AC-LUNCH 06/28/18 09/26/18 Mcg = 1000 Iu)] Ondansetron HCl [Zofran] 4 mg PO BID PRN 06/28/18 09/26/18 Omeprazole Magnesium [PriLOSEC OTC] 20 mg PO DAILY 09/26/18 09/26/18 Previous Rx's Medication Instructions Recorded Ferrous Sulfate [Iron (65 MG 325 mg PO DAILY tab 10/07/18 Elemental)] Loperamide [Imodium] 2 mg PO TID PRN #60 cap 10/07/18 Melatonin 6 mg PO HS tablet 10/07/18 Potassium Chloride ER [K-Dur 20] 20 meq PO DAILY tab.er.prt 10/07/18 hydrALAZINE HCL [Apresoline] 50 mg PO TID #90 tab 10/07/18 metroNIDAZOLE [Flagyl] 500 mg PO Q8HR #21 tab 10/07/18 traMADol HCl [Ultram] 50 mg PO QID PRN #12 tab 10/07/18 Bisacodyl [Dulcolax] 10 mg PO DAILY #7 tablet. 11/14/18 Docusate [Colace] 100 mg PO DAILY 7 Days #7 capsule 01/29/19 Allergies Allergy/AdvReac Type Severity Reaction Status Date / Time No Known Allergies Allergy Verified 11/14/18 15:35 Review of Systems ROS Other: All systems not noted in ROS Statement are negative. <Sheryl Balderrama - Last Filed: 01/29/19 14:16> ROS Other: All systems not noted in ROS Statement are negative. <Mike Baca - Last Filed: 01/29/19 16:48> ROS Statement: Those systems with pertinent positive or pertinent negative responses have been documented in the HPI. Past Medical History Past Medical History: GERD/Reflux, Hypertension, Osteoarthritis (OA) Additional Past Medical History / Comment(s): Rectocele, hepatitis c (in remission now), History of Any Multi-Drug Resistant Organisms: None Reported Past Surgical History: Cholecystectomy, Hysterectomy Additional Past Surgical History / Comment(s): LEFT KNEE, on water pill (lasix) for feet swelling (denies CHF), colon surgery Past Psychological History: Depression Smoking Status: Former smoker Past Alcohol Use History: None Reported Past Drug Use History: None Reported - Past Family History Father Additional Family Medical History / Comment(s): Patient's father in his 70s who with history of diabetes and coronary artery disease. Mother Additional Family Medical History / Comment(s): Her mother in her 70s from unknown cause. Brother(s) Additional Family Medical History / Comment(s): Patient has 4 brothers and 3 have and all brothers have had diabetes and coronary artery disease. Sister(s) Additional Family Medical History / Comment(s): Patient has 3 sisters that have all . One from CVA. 2 sisters with coronary artery disease and diabetes. Patient has one son known to have diabetes. <Sheryl Balderrama - Last Filed: 01/29/19 14:16> General Exam Limitations: no limitations <Sheryl Balderrama - Last Filed: 01/29/19 14:16> - General Exam Comments Initial Comments: General: The patient is awake and alert, in no distress, and does not appear acutely ill. Eye: Pupils are equal, round and reactive to light, extra-ocular movements are intact. No nystagmus. There is normal conjunctiva bilaterally. No signs of icterus. Cardiovascular: There is a regular rate and rhythm. No murmur, rub or gallop is appreciated. Respiratory: Lungs are clear to auscultation, respirations are non-labored, breath sounds are equal. No wheezes, stridor, rales, or rhonchi. Gastrointestinal: Soft, non-distended, non-tender abdomen without masses or organomegaly noted. There is no rebound or guarding present. Rectal exam no bleeding, palpable stool ball at tip of index finger during exam. Vaginal bimanual exam, no vaginal bleeding evident, no pain palpable rectocele, no palpable fistula. Musculoskeletal: Normal ROM, no tenderness. Strength 5/5. Sensation intact. Radial pulses equal bilaterally 2+. Neurological: A&O x 3. CN II-XII intact grossly, There are no obvious motor or sensory deficits. Coordination appears grossly intact. Speech is normal. Skin: Skin is warm and dry and no rashes or lesions are noted. Psychiatric: Cooperative, appropriate mood & affect, normal judgment. (Sheryl Balderrama) Course <Mike Baca - Last Filed: 01/29/19 16:48> Vital Signs 01/29/19 01/29/19 09:47 13:58 Temperature 97.8 F 97.8 F Pulse Rate 72 95 Respiratory 17 18 Rate Blood Pressure 150/65 164/72 O2 Sat by Pulse 95 98 Oximetry - Reevaluation(s) Reevaluation #1: 01/29/19 16:47 PA supervision: I personally did evaluate this case and did discuss the findings. Patient does present with complaints of constipation symptoms. Evaluation is consistent with the above. Assessment and plan. (Mike Baca) Medical Decision Making - Lab Data Result diagrams: 01/29/19 10:40 01/29/19 10:40 <Sheryl Balderrama - Last Filed: 01/29/19 14:16> - Lab Data Result diagrams: 01/29/19 10:40 01/29/19 10:40 <Mike Baca - Last Filed: 01/29/19 16:48> - Medical Decision Making 83-year-old female presenting today for chief complaint of constipation. Patient states she struggled constipation since her bowel resection. Patient denies any abdominal pain but states he has been sick states her last bowel movement. Patient admits to some rectal fullness discomfort. Patient had enema and disimpaction resulting in a large amount of fecal metal removed. Patient states she feeling much better. No vaginal bleeding on exam. History of hysterectomy Patient's laboratory studies stable she appears slightly dehydrated and was given IV fluids. I discussed the importance of increasing fluids as well as fiber taking daily stool softener and possible self mother of MiraLAX or magnesium citrate. Patient verbalized understanding. Patient was advised to follow-up with primary care provider one to 2 days return parameters were discussed at length patient verbalizes understanding is discharged. After discussing case by attending provider Dr. Baca. (Sheryl Balderrama) - Lab Data Lab Results 01/29/19 01/29/19 Range/Units 10:40 10:40 WBC 8.5 (3.8-10.6) k/uL RBC 4.53 (3.80-5.40) m/uL Hgb 12.3 (11.4-16.0) gm/dL Hct 38.8 (34.0-46.0) % MCV 85.7 (80.0-100.0) fL MCH 27.1 (25.0-35.0) pg MCHC 31.7 (31.0-37.0) g/dL RDW 15.6 H (11.5-15.5) % Plt Count 305 (150-450) k/uL Neutrophils % 69 % Lymphocytes % 23 % Monocytes % 5 % Eosinophils % 1 % Basophils % 0 % Neutrophils # 5.9 (1.3-7.7) k/uL Lymphocytes # 2.0 (1.0-4.8) k/uL Monocytes # 0.4 (0-1.0) k/uL Eosinophils # 0.1 (0-0.7) k/uL Basophils # 0.0 (0-0.2) k/uL Sodium 138 (137-145) mmol/L Potassium 4.3 (3.5-5.1) mmol/L Chloride 99 (98-107) mmol/L Carbon Dioxide 29 (22-30) mmol/L Anion Gap 10 mmol/L BUN 35 H (7-17) mg/dL Creatinine 1.54 H (0.52-1.04) mg/dL Est GFR (CKD-EPI)AfAm 36 (>60 ml/min/1.73 sqM) Est GFR (CKD-EPI)NonAf 31 (>60 ml/min/1.73 sqM) Glucose 167 H (74-99) mg/dL Calcium 9.7 (8.4-10.2) mg/dL Total Bilirubin 0.5 (0.2-1.3) mg/dL AST 24 (14-36) U/L ALT 12 (9-52) U/L Alkaline Phosphatase 66 (38-126) U/L Total Protein 7.4 (6.3-8.2) g/dL Albumin 4.0 (3.5-5.0) g/dL Disposition Is patient prescribed a controlled substance at d/c from ED?: No Time of Disposition: 13:01 <Sheryl Balderrama - Last Filed: 01/29/19 14:16> <Mike Baca - Last Filed: 01/29/19 16:48> Clinical Impression: Constipation Disposition: HOME SELF-CARE Condition: Good Instructions (If sedation given, give patient instructions): Constipation (ED), High Fiber Diet (ED) Additional Instructions: Please use medication as discussed. Please follow-up with family doctor in the next 2 days. PLEASE INCREASE FLUIDS and FIBER INTAKE. Please return to emergency room if the symptoms increase or worsen or for any other concerns. Prescriptions: Docusate [Colace] 100 mg PO DAILY 7 Days #7 capsule Referrals: Andrew Castillo MD [Primary Care Provider] - 1-2 days
[2019-01-29 14:07] VITALS: BP 164/72; PULSE 95; RESP 18
== END 2019-01-29 13:58 | disposition home or self-care (01) ==
LOC: EC 09:36
DX: K59.00 Constipation, unspecified (principal); E86.0 Dehydration; K21.9 Gastro-esophageal reflux disease without esophagitis; Z87.891 Personal history of nicotine dependence; Z79.899 Other long term (current) drug therapy; Z86.19 Personal history of other infectious and parasitic diseases; Z87.42 Personal history of other diseases of the female genital tract; Z90.49 Acquired absence of other specified parts of digestive tract; Z90.710 Acquired absence of both cervix and uterus; Z53.8 Procedure and treatment not carried out for other reasons
CPT/HCPCS: 36415; 74018; 80053; 85025; 96360; 99284

== ENCOUNTER → 2019-02-02 | Outpatient (CLI) | payer MEDICARE, BC ==
--- NOTE | 2019-02-02 11:36 | CT ---
EXAMINATION TYPE: CT brain wo con DATE OF EXAM: 02/02/2019 COMPARISON: None HISTORY: Headache CT DLP: 961 mGycm Automated exposure control for dose reduction was used. TECHNIQUE: CT scan of the head is performed without contrast. FINDINGS: There is no acute intracranial hemorrhage or midline shift identified. There is diffuse v entricular and sulcal prominence consistent with diffuse age-related cerebral atrophy. There is low- attenuation in the periventricular white matter consistent with chronic small vessel ischemic change. The globes are intact with surgical absence of the right lens and scleral calcification. The visual ized sinuses are clear. Diffuse osseous demineralization of the calvarium. IMPRESSION: No acute intracranial hemorrhage or midline shift. There is diffuse age-related cerebra l atrophy and chronic small vessel ischemic change noted.
--- NOTE | 2019-02-02 13:11 | FL ---
EXAMINATION TYPE: FL barium enema DATE OF EXAM: 02/02/2019 COMPARISON: 01/29/2019 and x-ray HISTORY: Constipation with prior colonic resection due to obstruction. TECHNIQUE: A double contrast barium enema study is performed. FINDINGS: Interface Engineer view of the abdomen shows overall non-obstructive bowel gas pattern. Few sigmoid diverticula are seen. The patient experienced difficulty retaining rectal contrast. Promi nent haustra are seen throughout the sigmoid, transverse and descending colon. The sigmoid and descen ding colon as well as transverse colon are incompletely distended . Contrast was not able to the exte nt into the ascending colon as the patient could not retain contrast. Patient positioning was difficu lt and overlapping bowel is seen limiting the evaluation as well. Terminal ileum was not able to be s een. IMPRESSION: Incomplete examination as the patient could not retain contrast. Suboptimal evaluation o f the visualized colon. Prominent haustra are seen throughout the transverse colon, descending colon and sigmoid colon suggesting chronic colitis. Sigmoid diverticula are also noted.
== END | disposition home or self-care (01) ==
LOC: RADFLMAIN 10:33
PROVIDERS: ATTEND Internal Medicine Geriatric Medicine
DX: K57.30 Diverticulosis of large intestine without perforation or abscess without bleeding (principal)
CPT/HCPCS: 70450; 74270